=== PATIENT | female | born 1935 | race Caucasian/White ===

== ENCOUNTER 2017-10-11 12:39 | Inpatient (IN) | payer OTHER ==
[~2017-10-11] VITALS: Ht 165.1 cm; Wt 58.6 kg
[~2017-10-11 12:39] MED LIST: CEFUROXIME500 MG PO; CIPRO 500MG TA500 MG PO; CIPRO500 M1 PO; DOCUSATE SODIU100 M3 PO; ESCITALOPRAM OXA5 MG PO; FLUCONAZOLE100 MG PO; KEFLEX500 M1 PO; LEVEMIR 10100 UNITS/ SC; LEVEMIR100 UNIT/1 SC; MACRODANTIN 50M50 MG PO; MIRALAX119 GM PO; NITROFURANTOIN100 M6 PO; NOVOLOG MI100 UNIT/1 SC; NOVOLOG100 UNIT/2 SC; OXYBUTYNIN CHLO15 M1 PO; SENNA PLUS TAB1 EACH PO; TOUJEO SOL300 UNIT/1 SC; VANCOMYCIN1 GM/250 M IV; VESICARE5 M1 PO; VITAMIN D31000 UNI1 PO; VITAMIN D31000 UNI2 PO; ZOLPIDEM TARTRAT5 M1 PO
--- NOTE | 2017-10-11 13:07 | ED GENERAL ADULT ---
History of Present Illness General Chief Complaint: General Adult Stated Complaint: WEAKNESS Source: patient, family, old records Exam Limitations: no limitations Vital Signs & Intake/Output Vital Signs & Intake/Output Vital Signs Date Time Temp Pulse Resp B/P B/P Pulse O2 O2 Flow FiO2 Mean Ox Delivery Rate 10/11 1240 97.9 85 18 108/54 99 Room Air Allergies Coded Allergies: sulfamethoxazole (From Bactrim) (Mild, BACTRIM DS - FLUSHED FACE 08/26/15) trimethoprim (From Bactrim) (Mild, BACTRIM DS - FLUSHED FACE 08/26/15) Reconcile Medications Escitalopram Oxalate 5 MG TABLET 1 TAB PO DAILY DEPRESSION (Reported) Insulin Aspart (Novolog) 100 UNIT/ML VIAL 0 UNITS SC TIDAC/HS diabetes mellitus . Insulin Glargine,Hum.rec.anlog (Toujeo Solostar) 300 UNIT/ML (1.5 ML) INSULN.PEN 11 UNITS SC QPM DIABETES (Reported) Triage Note: PT BIBA FROM HOME C/O NV AND DIZZYNESS AND WEAKNESS. ONSET THIS AM.. PT STATES THAT SHE IS HUNGRY AND WANTS TO EAT.. PER FAMILY HX OD DYHYDRATION AND LOW POTASSIUM. P0ER EMS FS 318 Triage Nurses Notes Reviewed? yes HPI: Patient brought in by her family for evaluation for weakness and near syncopal episodes this morning after taking a shower. Patient states that she has been weak over the past few days. Patient has been anorexic. Patient had 2 episodes of vomiting and her live-in health provider has noticed that she has had loose stools over the past few days. There have been no fevers or chills. There is no coughing. She denies any abdominal pain. Past History Travel History Traveled to [place] past 21 day No Medical History Any Pertinent Medical History? see below for history Neurological: NONE EENT: NONE Cardiovascular: NONE Respiratory: NONE Gastrointestinal: CELIAC DISEASE Hepatic: NONE Renal: UTI'S Musculoskeletal: R HIP FX Psychiatric: NONE Endocrine: IDDM Blood Disorders: anemia Cancer(s): NONE GARMENT INSPECTOR/Reproductive: NONE History of MRSA: Yes History of VRE: No History of CDIFF: No Influenza Vaccine: 01/08/17 Surgical History Surgical History: hysterectomy, status post right hip ORIF 2 years prior to admission s/p right foot surgery Psychosocial History Who do you live with Patient/Self Services at Home Home Health Aide What is your primary language Colombian Tobacco Use: Quit >30 days ago ETOH Use: denies use Illicit Drug Use: denies illicit drug use Family History Family History, If Any: MOTHER (Diabetes). SISTER (diabetes). DAUGHTER (Diabetes). Hx Contributory? No Review of Systems Review of Systems Constitutional: Reports: see HPI, weakness. EENTM: Reports: no symptoms. Respiratory: Reports: no symptoms. Cardiovascular: Reports: no symptoms. GI: Reports: see HPI, abdominal pain, diarrhea, nausea, vomiting. Genitourinary: Reports: no symptoms. Musculoskeletal: Reports: no symptoms. Skin: Reports: no symptoms. Neurological/Psychological: Reports: see HPI. Hematologic/Endocrine: Reports: no symptoms. Immunologic/Allergic: Reports: no symptoms. All Other Systems: Reviewed and Negative Physical Exam Physical Exam General Appearance: well developed/nourished, alert, awake, mild distress Head: atraumatic, normal appearance Eyes: Bilateral: PERRL, EOMI. Ears, Nose, Throat: normal pharynx, normal ENT inspection, hearing grossly normal Neck: normal inspection, supple, full range of motion Respiratory: normal breath sounds, chest non-tender, no respiratory distress, lungs clear Cardiovascular: regular rate/rhythm, normal peripheral pulses Gastrointestinal: normal bowel sounds, soft, non-tender, no organomegaly Back: normal inspection, normal range of motion Extremities: normal inspection, normal capillary refill, normal range of motion, no edema Neurologic/Psych: no motor/sensory deficits, awake, alert, oriented x 3, normal mood/affect Skin: intact, normal color, warm/dry Lymphatic: no anterior cervical reji Core Measures ACS in differential dx? No CVA/TIA Diagnosis: No Sepsis Present: No Sepsis Focused Exam Completed? No Progress Differential Diagnoses I considered the following diagnoses in my evaluation of the patient: Plan of Care: Orders Procedure Date/time Status CBC WITHOUT DIFFERENTIAL 10/12 06 Active BASIC ELECTROLYTES PLUS BUN&CR 10/12 06 Active Consistent Carbohydrate 3 10/11 D Active Pathway - chart 10/11 1541 Active House Staff 10/11 1541 Active Patient Data 10/11 1541 Active Code Status 10/11 1541 Active Lab Add-on Test 10/11 1451 Active CULTURE,URINE 10/11 1450 Active BLOOD CULTURE 10/11 1450 Active URINALYSIS 10/11 1450 Active Patient Data 10/11 1434 Active ED Holding Orders 10/11 1426 Active Admit to inpatient 10/11 1426 Active Vital Signs 10/11 1426 Active Code Status 10/11 1426 Complete EKG 10/11 1425 Active LACTIC ACID 10/11 1318 Complete MIXED VENOUS BLOOD GAS (GEN) 10/11 1306 Active TROPONIN LEVEL 10/11 1306 Complete LIPASE 10/11 1306 Complete COMPREHENSIVE METABOLIC PANEL 10/11 1306 Complete CBC WITHOUT DIFFERENTIAL 10/11 1306 Complete AMYLASE 10/11 1306 Complete ACETONE 10/11 1306 Complete VTE Mechanical Prophylaxis 10/11 UNK Active Vital Signs 10/11 UNK Active MISTAKE 10/11 UNK Active Telemetry/Vp Cardiovascular 10/11 UNK Active Current Medications Sig/Tevin Start time Last Medication Dose Stop Time Status Admin Heparin Sodium 5,000 UNIT Q8 10/11 2200 AC (Porcine) Acetaminophen 650 MG Q6P PRN 10/11 1545 AC (Tylenol) Sodium Chloride 1,000 ML .[id number] 10/11 1545 AC (Normal Saline 0.9%) 10/12 0504 Laboratory Tests 10/11/17 1318: Lactic Acid 1.6 10/11/17 1318: Anion Gap 14, Estimated GFR 17 L, BUN/Creatinine Ratio 20.7, Glucose 362 H, Calcium 8.3 L, Total Bilirubin 0.3, AST 18, ALT 13, Alkaline Phosphatase 129 H , Troponin I < 0.01, Total Protein 6.2 L, Albumin 2.9 L, Globulin 3.3, Albumin /Globulin Ratio 0.9 L, Amylase 33, Lipase 18 L, CBC w Diff MAN DIFF ORDERED, RBC 3.48 L, MCV 80.2 L, MCH 25.3 L, MCHC 31.6 L, RDW 19.3 H, MPV 9.1, Gran % 94.8 H, Lymphocytes % 3.6 L, Monocytes % 1.6 L, Eosinophils % 0, Basophils % 0, Absolute Granulocytes 18.2 H, Segmented Neutrophils 75, Band Neutrophils 10 H, Absolute Lymphocytes 0.7 L, Lymphocytes 4 L, Monocytes 11 H, Absolute Monocytes 0.3, Absolute Eosinophils 0, Absolute Basophils 0, Platelet Estimate ADEQUATE, Hypochromic-Microcytic 2+, Anisocytosis 1+, Acetone Level NEGATIVE Microbiology 10/11 1450 URINE ROUT: Urine Culture - ORD 10/11 1450 BLOOD: Blood Culture - ORD 10/11 1450 BLOOD: Blood Culture - ORD Initial ED EKG: NSR, nonspecific ST T wave chg, PVC Rhythm Strip: normal sinus rhythm Departure Departure Disposition: STILL A PATIENT Condition: Guarded Clinical Impression Primary Impression: Acute renal failure Secondary Impressions: Hyperkalemia, Near syncope Referrals: Lisa Poe DO (PCP/Family) Departure Forms: Customer Survey General Discharge Information Admission Note Spoke With: Nehemiah Miller MD Documentation of Exam: Documentation of any treatments & extenuating circumstances including Concerns Regarding Discharge (functional status, medication knowledge or non-compliance, living conditions, etc.) that warrant an admission rather than observation: [IV fluids, telemetry monitoring, serial enzymes, no melena renal consultation, follow-up potassium levels after treatment] Critical Care Note Critical Care Note Critical Care Time: non-applicable
[2017-10-11 13:29] LABS: ABSOLUTE BASOPHIL COUNT 0 /CUMM (0.0-0.2); ABSOLUTE EOSINOPHIL COUNT 0 /CUMM (0.0-0.7); ABSOLUTE GRANULOCYTE CT 18.2 /CUMM (1.4-6.5); ABSOLUTE LYMPH COUNT 0.7 /CUMM (1.2-3.4); ABSOLUTE MONOCYTE COUNT 0.3 /CUMM (0.10-0.60); BASOPHIL % 0 % (0.0-2.0); EOSINOPHIL % 0 % (0-5); GRANULOCYTE % 94.8 % (42.2-75.2); HEMATOCRIT 27.9 % (37-47); MEAN CORPUSCULAR HGB 25.3 PG (27.0-31.0); MEAN CORPUSCULAR HGB CONC 31.6 G/DL (33.0-37.0); MEAN CORPUSCULAR VOLUME 80.2 FL (81.0-99.0); MEAN PLATELET VOLUME 9.1 FL (7.4-10.4); PLATELET COUNT 335 /CUMM (130-400); RBC DISTRIBUTION WIDTH 19.3 % (11.5-14.5); RED BLOOD CELL CT 3.48 /CUMM (4.20-5.40); WHITE BLOOD CELL COUNT 19.1 /CUMM (4.8-10.8)
--- NOTE | 2017-10-11 14:02 | RADIOLOGY REPORT ---
EXAMINATION: PORTABLE CHEST 1 VIEW CLINICAL INFORMATION: Weakness. COMPARISON: 03/29/2017. TECHNIQUE: Portable frontal view of the chest was obtained. FINDINGS: Patient is rotated slightly to the right. Lungs are well expanded. Chronic appearing reticular markings are again seen bilaterally. No superimposed focal infiltrate, effusion, edema, or pneumothorax. Cardiac mediastinal silhouettes within normal limits for size. Vascular calcification again seen in the aorta. Old healed left-sided rib fractures noted. Degenerative changes in the shoulders and spine. IMPRESSION: Mild chronic appearing changes but no evidence for acute disease.
--- NOTE | 2017-10-11 14:32 | History & Physical ---
Saulo KING,Josey 10/11/17 1432: General Information and HPI MD Statement: I have seen and personally examined ANEDRS SALAZAR and documented this H&P. The patient is a 82 year old F who presented with a patient stated chief complaint of [WEAKNESS]. Source of Information: patient, family, old records Exam Limitations: dementia History of Present Illness: 82 years old female with past medical history of celiac disease, diabetes, recurrent UTI, chronic anemia, reactive thrombocytopenia, overactive bladder, urine incontinence, depression presented to the ED complaining of weakness and dizziness for 3 days, it was associated with nausea, vomiting few times and loose stool. The patient also noticed that her blood pressure was running in the 929149 range for the past week. Patient also endorses increasing confusion. This morning the patient felt that she is about to pass out after taking a shower and felt very weak when she decided to come to the ED. At baseline the patient is incontinent and he denies any urinary symptoms. In addition she had poor oral intake for the past few days. She denies any recent travel or sick contacts. Allergies/Medications Allergies: Coded Allergies: sulfamethoxazole (From Bactrim) (Mild, BACTRIM DS - FLUSHED FACE 08/26/15) trimethoprim (From Bactrim) (Mild, BACTRIM DS - FLUSHED FACE 08/26/15) Home Med list Escitalopram Oxalate 5 MG TABLET 1 TAB PO DAILY DEPRESSION (Reported) Insulin Aspart (Novolog) 100 UNIT/ML VIAL 0 UNITS SC TIDAC/HS diabetes mellitus . 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 SISTER (diabetes). DAUGHTER (Diabetes). Psychosocial History Who Do You Live With? self Services at Home: Home Health Aide Primary Language: Grenadian ETOH Use: denies use Illicit Drug Use: denies illicit drug use Living Will? yes Power of Endoscopy Tech/HCP? yes Name of POA/HCP: Rolan Salazar Functional Ability ADLs Independent: dressing, bathing. Needs Assist: eating. Ambulation: walker IADLs Independent: finances, telephone. Needs Assist: shopping, housework, food prep, transportation, medication admin. Review of Systems Review of Systems Constitutional: Reports: malaise, weakness. Cardiovascular: Denies: chest pain, edema, orthopena, palpitations, peripheral edema. Respiratory: Denies: cough, hemoptysis, orthopnea, short of breath, sputum production. GI: Denies: no symptoms. Genitourinary: Reports: see HPI. Denies: no symptoms. Musculoskeletal: Denies: no symptoms. Skin: Denies: no symptoms. Neurological/Psychological: Denies: no symptoms. Exam & Diagnostic Data Last 24 Hrs of Vital Signs/I&O Vital Signs Date Time Temp Pulse Resp B/P B/P Pulse O2 O2 Flow FiO2 Mean Ox Delivery Rate 10/11 1240 97.9 85 18 108/54 99 Room Air Intake & Output 10/11 1600 10/11 0800 10/11 0000 Intake Total Output Total Balance Patient 110 lb Weight Weight Reported by Patient Measurement Method Physical Exam General Appearance Alert, Cooperative, No Acute Distress HEENT Atraumatic, PERRLA, EOMI, Mucous Membr. moist/pink Neck Supple, No thryomegaly Cardiovascular Normal S1, Normal S2, No Murmurs Lungs Clear to Auscultation Abdomen Normal Bowel Sounds, Soft, No Tenderness Extremities No Clubbing, No Cyanosis, No Edema Vascular Normal Pulses Last 24 Hrs of Labs/Emmanuel: Laboratory Tests 10/11/17 1653: Urinalysis LIGHT H, Urine Color YEL, Urine Clarity CLDY H, Urine pH 6.0, Ur Specific [place] 1.015, Urine Protein 30 H, Urine Ketones NEG, Urine Nitrite POS H, Urine Bilirubin NEG, Urine Urobilinogen 0.2, Ur Leukocyte Esterase LARGE H, Ur Microscopic SEDIMENT EXAMINED, Urine RBC 10-15 H, Urine WBC PACKD H, Ur Epithelial Cells FEW, Urine Bacteria PACKD H, Urine Mucus FEW, Urine Hemoglobin LARGE H, Urine Glucose 500 H 10/11/17 1318: Lactic Acid 1.6 10/11/17 1318: Anion Gap 14, Estimated GFR 17 L, BUN/Creatinine Ratio 20.7, Glucose 362 H, Calcium 8.3 L, Total Bilirubin 0.3, AST 18, ALT 13, Alkaline Phosphatase 129 H , Troponin I < 0.01, Total Protein 6.2 L, Albumin 2.9 L, Globulin 3.3, Albumin /Globulin Ratio 0.9 L, Amylase 33, Lipase 18 L, CBC w Diff MAN DIFF ORDERED, RBC 3.48 L, MCV 80.2 L, MCH 25.3 L, MCHC 31.6 L, RDW 19.3 H, MPV 9.1, Gran % 94.8 H, Lymphocytes % 3.6 L, Monocytes % 1.6 L, Eosinophils % 0, Basophils % 0, Absolute Granulocytes 18.2 H, Segmented Neutrophils 75, Band Neutrophils 10 H, Absolute Lymphocytes 0.7 L, Lymphocytes 4 L, Monocytes 11 H, Absolute Monocytes 0.3, Absolute Eosinophils 0, Absolute Basophils 0, Platelet Estimate ADEQUATE, Hypochromic-Microcytic 2+, Anisocytosis 1+, Acetone Level NEGATIVE Microbiology 10/11 170 BLOOD: Blood Culture - RECD 10/11 170 BLOOD: Blood Culture - RECD 10/11 1653 URINE ROUT: Urine Culture - RECD Assessment/Plan Assessment: 82 years old female with past medical history of celiac disease, diabetes, recurrent UTI, chronic anemia, reactive thrombocytopenia, overactive bladder, urine incontinence, depression presented to the ED complaining of weakness and dizziness for 3 days, it was associated with nausea, vomiting few times and loose stool. The patient has urine incontinence at baseline and that she is using diapers. She is denying any urinary symptoms currently however she had previous multiple admissions for UTI. She had blood sugar 362 which might be due to UTI, Vital signs on admission: Temperature 97.9, pulse 85, blood pressure 108/54, 99 on room air Labs on admission: WBC 19.1, hemoglobin 8.8, sodium 132, potassium 5.8, BUN 56, creatinine 2.7, glucose 362, calcium 8.3, chest x-ray mild chronic changes, urinalysis shows large leukocyte esterase Problem list: Weakness, dizziness and near syncope UTI with history of MRSA Hyponatremia Hyperkalemia Hypocalcemia Elevated alkaline phosphatase AK I on CKD (most likely due to dehydration secondary to vomiting and diarrhea) Chronic medical condition Plan: Admit to telemetry floor Continuous telemetry monitoring Start IV ceftriaxone 1 g daily Follow-up on blood culture Follow-up on urine culture Close monitoring of PEEP especially potassium Insulin sliding scale Accu-Chek Continue home dose of Levemir 11 units daily Patient continues to have diarrhea we will send for C. difficile Gentle rehydration with IV normal saline at 100 cc/h Continue home meds DVT prophylaxis with subcutaneous heparin Consistent carbohydrate diet Full code As Ranked By This Provider Problem List: 1. UTI (urinary tract infection) 2. Near syncope 3. Acute renal failure Core Measures/Misc (01/10) Acute Coronary Syndrome ACS Diagnosis: No Congestive Heart Failure Congestive Heart Failure Diagnosis No Cerebrovascular Accident CVA/TIA Diagnosis: No VTE (View Protocol) VTE Risk Factors Age>40 No Mechanical VTE Prophylaxis d/t N/A MechProphylax Ordered No VTE Pharm Prophylaxis d/t NA PharmProphylax ordered Sepsis (View protocol) Sepsis Present: No If YES complete Sepsis Event Note If YES complete Sepsis Event Note Shayy KING,[facility] 10/11/17 1541: Core Measures/Misc (01/10) Sepsis (View protocol) If YES complete Sepsis Event Note If YES complete Sepsis Event Note Resident Review Statement Resident Statement: examined this patient, discussed with photography intern, agreed with photography intern, discussed with family, discussed with nursing Other Findings: Ms. Salazar is 20 year old female with past medical history significant for celiac disease, diabetes, recurrent UTI, chronic anemia, reactive thrombocytopenia, over active bladder with urinary incontinence, depression who presented to ED with chief complaint of dizziness and weakness for 3 days. History was obtained from the patient, caregiver and the daughter. The caregiver patient has pain complaining of weakness and decreased oral intake for almost 3 days, this morning she woke VERY confused and weak, after shower she felt dizzy however no reports about an OCP. Patient had 2 episodes of vomiting yesterday and loose stool for couple of days associated with decreased oral intake. No history of sick contact. Problem list Dizziness and weakness that can be infection versus hyperglycemia versus arrhythmia Leukocytosis with left shift and bandemia Microcytic anemia Hyperglycemia with pseudohyponatremia corrected sodium 136 Diabetes mellitus on insulin Hyperkalemia 5.8 Acute kidney injury Hypocalcemia 8.3 Elevated alkaline phosphatase 129 History of MRSA Plan Admit to telemetry floor for 24 hour signs of arrhythmia giving history of dizziness and confusion Vitals every shift Ins and outs Urgently UA and urine culture since patient has multiple recurrent UTI and reported symptoms of UTI week ago however denied symptoms today--last urine culture positive for pansensitive Escherichia coli Blood culture 2 Repeat CBC and BMP in a.m. Normal saline running at 100 mL/h Repeat potassium after Kayexalate ACCU CHECK, NovoLog sliding scale Continue levemir 11 units daily DVT prophylaxis heparin subcutaneous DIET diabetic diet Code full son is the Norma Hu 10/11/17 1601: Core Measures/Misc (01/10) Sepsis (View protocol) If YES complete Sepsis Event Note If YES complete Sepsis Event Note Attending MD Review Statement Attending Statement Attending MD Statement: examined this patient, discuss w/resident/PA/WAREHOUSE SHIPPING SUPERVISOR, agreed w/resident/PA/WAREHOUSE SHIPPING SUPERVISOR, discussed with family, reviewed EMR data (avail), discussed with nursing, discussed with case mgmt, reviewed images, amended to note Attending Assessment/Plan: 82 o/f with pmh as above comes with poor appetite and diarrhea for few days. No fevers. Patient is found to have profound dehydration with acute kidney injury and hyperkalemia. Patient recieved fluids in ER. Patient admitted to telemetry for dizziness likley 2/2 Intravascular volume depletion. Hyponatremia 2/2 IVVD. Start gentle hydration, Monitor creatinine and wbc, repeat potassium. Stool studies. Monitor hemodynamics. Serial cardiac enzymes. gi/dvt prophylaxis full code.
[2017-10-11 18:27] VITALS: BP 92/50
[2017-10-11 22:34] VITALS: BP 86/54
[2017-10-12] VITALS (9 sets, daily range): BP systolic 62–96; BP diastolic 30–52
--- NOTE | 2017-10-12 07:18 | PN- Housestaff ---
Saulo KING,Josey 10/12/17 0717: Subjective Follow-up For: hypotension and hypoglycemia Weakness, dizziness and near syncope UTI with history of MRSA severe anemia Hyponatremia, hyperkalemia-improved Hypocalcemia Elevated alkaline phosphatase SHREE on CKD (most likely due to dehydration secondary to vomiting and diarrhea)- worsenig Chronic medical condition Tele-Events Since Last Visit: No overnight events, normal sinus rhythm, heart rate 79 Subjective: Patient was seen and examined, she was found to be hypotensive and hypoglycemic, denies any complaints, will be going for CT to rule out internal bleed, dropped her H&H, will receive 1 unit of PRBCs Review of Systems Constitutional: Reports: no symptoms. Objective Last 24 Hrs of Vital Signs/I&O Vital Signs Date Time Temp Pulse Resp B/P B/P Pulse O2 O2 Flow FiO2 Mean Ox Delivery Rate 10/13 1451 97.7 80 16 101/55 97 Room Air 10/13 1447 88/48 10/13 0947 80/40 10/13 0626 97.7 95 22 84/42 94 10/13 0428 97.7 95 22 84/42 94 10/12 2206 98.9 89 22 96/52 94 10/12 1525 98.3 86 19 84/48 94 Intake & Output 10/13 1600 10/13 0800 10/13 0000 Intake Total 650 Output Total Balance 650 Intake, IV 650 Patient 115 lb 131 lb Weight Physical Exam General Appearance: Alert, Cooperative, No Acute Distress Cardiovascular: Normal S1, Normal S2 Lungs: Clear to Auscultation Abdomen: Normal Bowel Sounds, Soft, No Tenderness Neurological: Normal Speech Extremities: No Clubbing, No Cyanosis, No Edema Assessment/Plan Assessment: 82 years old female with past medical history of celiac disease,type 1 diabetes, recurrent UTI, chronic anemia, reactive thrombocytopenia, overactive bladder, urine incontinence, depression presented to the ED complaining of weakness and dizziness for 3 days, it was associated with nausea, vomiting few times and loose stool. The patient has urine incontinence at baseline and that she is using diapers. She is denying any urinary symptoms currently however she had previous multiple admissions for UTI. She had blood sugar 362 which might be due to UTI, Vital signs on admission: Temperature 97.9, pulse 85, blood pressure 108/54, 99 on room air Labs on admission: WBC 19.1, hemoglobin 8.8, sodium 132, potassium 5.8, BUN 56, creatinine 2.7, glucose 362, calcium 8.3, chest x-ray mild chronic changes, urinalysis shows large leukocyte esterase Problem list: hypotension and hypoglycemia Weakness, dizziness and near syncope UTI with history of MRSA severe anemia Hyponatremia, hyperkalemia-improved Hypocalcemia Elevated alkaline phosphatase SHREE on CKD (most likely due to dehydration secondary to vomiting and diarrhea)- worsenig Chronic medical condition Plan: continue to monitpr on telemetry floor Continuous telemetry monitoring Continue IV ceftriaxone 1 g daily Follow-up on blood culture Follow-up on urine culture Follow-up on CT abdomen to rule out obstructive uropathy Patient was given multiple IV normal saline boluses Close monitoring of PEEP especially potassium Insulin sliding scale Decrease Levemir to 4 units twice daily daily Accu-Chek Pulmonology input appreciated if Patient continues to have diarrhea we will send for C. difficile Continue rehydration with IV normal saline at 150 cc/h Transfuse 1 unit of PRBCs Continue home meds DVT prophylaxis with subcutaneous heparin Consistent carbohydrate diet Full code For any questions or updates please call her son Rolan Rich cell: [phone] Problem List: 1. Diabetes mellitus 2. Near syncope 3. Acute renal failure 4. UTI (urinary tract infection) Pain Ratin Pain Location: n/a Pain Goal: Remain pain free Pain Plan: Pathway Tomorrow's Labs & Rationales: CBC BEP Norma Kitchen 10/12/17 1232: Attending MD Review Statement Attending Statement Attending MD Statement: examined this patient, discuss w/resident/PA/SPLIT LEATHER DEPARTMENT SUPERVISOR, agreed w/resident/PA/SPLIT LEATHER DEPARTMENT SUPERVISOR, discussed with family, reviewed EMR data (avail), discussed with nursing, discussed with case mgmt, reviewed images, amended to note Attending Assessment/Plan: Patient with hypotension and drop in hemoglobin this am likley acute blood loss anemia. Lactic acid on admisison normal. Would continue hydration and transfuse 1 unit of prbc. Obtain CT abd/pelvis, iv PPI, NPO and GI consult. Continue antibiotics and follow culture. Continue serial monitoring of cbc and creatinine.
[2017-10-12 07:52] LABS: ABSOLUTE BASOPHIL COUNT 0 /CUMM (0.0-0.2); ABSOLUTE EOSINOPHIL COUNT 0.1 /CUMM (0.0-0.7); BASOPHIL % 0 % (0.0-2.0); EOSINOPHIL % 0.8 % (0-5); RED BLOOD CELL CT 2.61 /CUMM (4.20-5.40)
[2017-10-12 08:25] LABS: ABSOLUTE GRANULOCYTE CT 9.2 /CUMM (1.4-6.5); ABSOLUTE LYMPH COUNT 0.4 /CUMM (1.2-3.4); ABSOLUTE MONOCYTE COUNT 0.8 /CUMM (0.10-0.60); MEAN CORPUSCULAR HGB 25.1 PG (27.0-31.0); MEAN CORPUSCULAR HGB CONC 31.5 G/DL (33.0-37.0); MEAN CORPUSCULAR VOLUME 79.7 FL (81.0-99.0); MEAN PLATELET VOLUME 9.5 FL (7.4-10.4); RBC DISTRIBUTION WIDTH 19.3 % (11.5-14.5); WHITE BLOOD CELL COUNT 10.5 /CUMM (4.8-10.8)
[2017-10-12 08:40] LABS: HEMATOCRIT 20.8 % (37-47)
[2017-10-12 09:30] LABS: PLATELET COUNT 277 /CUMM (130-400)
--- NOTE | 2017-10-12 09:50 | Cons- Endocrinology ---
General Information and HPI Consulting Request Date of Consult: 10/12/17 Requested By: medical team Reason for Consult: management of uncontrolled diabetes type 1. Source of Information: patient, family, old records Exam Limitations: no limitations History of Present Illness: 82 years old female with past medical history of celiac disease, diabetes type 1 , recurrent UTI, chronic anemia, overactive bladder, urine incontinence and depression, was admitted for UTI complicated with acute renal insufficiency. Her glucose level was in the 50s this morning. I was asked to see her for management of uncontrolled diabetes type 1. At home, she was on Toujeo 11 units daily and Novolog coverage before meals. In hospital, levemir was discontiued due to hypoglycemia. She is on Novolog coverage before meals. Her most recent FSG was 150. Allergies/Medications Allergies: Coded Allergies: sulfamethoxazole (From Bactrim) (Mild, BACTRIM DS - FLUSHED FACE 08/26/15) trimethoprim (From Bactrim) (Mild, BACTRIM DS - FLUSHED FACE 08/26/15) Home Med List: Escitalopram Oxalate 5 MG TABLET 1 TAB PO DAILY DEPRESSION (Reported) Insulin Aspart (Novolog) 100 UNIT/ML VIAL 0 UNITS SC TIDAC/HS diabetes mellitus . Insulin Glargine,Hum.rec.anlog (Toujeo Solostar) 300 UNIT/ML (1.5 ML) INSULN.PEN 11 UNITS SC QPM DIABETES (Reported) Review of Systems Review of Systems Constitutional: Reports: see HPI. Cardiovascular: Denies: chest pain. Respiratory: Denies: short of breath. GI: Denies: abdominal pain. Genitourinary: Reports: see HPI (incontinence). Hematologic/Endocrine: Denies: polyuria, polydipsia. 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 SISTER (diabetes). DAUGHTER (Diabetes). Psychosocial History Where Do You Live? Home Who Do You Live With? self Services at Home: Home Health Aide Primary Language: Nepali Smoking Status: Former Smoker ETOH Use: denies use Illicit Drug Use: denies illicit drug use Living Will? yes Power of Ehr Trainer/HCP? yes Name of POA/HCP: Rolan Layla Functional Ability ADLs Independent: dressing, bathing. Needs Assist: eating. Ambulation: walker IADLs Independent: finances, telephone. Needs Assist: shopping, housework, food prep, transportation, medication admin. Exam & Diagnostic Data Last 24 Hrs of Vital Signs/I&O Vital Signs Date Time Temp Pulse Resp B/P B/P Pulse O2 O2 Flow FiO2 Mean Ox Delivery Rate 10/12 0904 72/40 10/12 0620 108 78/36 10/12 0530 99.2 104 20 80/40 96 Room Air 10/11 2234 99.2 105 20 86/54 98 10/11 1827 98.2 84 18 92/50 94 10/11 1620 97.8 83 18 92/68 94 Room Air 10/11 1420 97 10/11 1240 97.9 85 18 108/54 99 Room Air Intake & Output 10/12 1600 10/12 0800 10/12 0000 Intake Total 1400 1000 Output Total Balance 1400 1000 Intake, IV 1400 1000 Patient 125 lb Weight Weight Bed scale Measurement Method Physical Exam General Appearance: no apparent distress Respiratory: lungs clear Cardiovascular: tachycardia Gastrointestinal: soft Extremities: no edema Labs/Emmanuel Results: Laboratory Tests 10/12 10/12 10/12 0637 0600 0545 Chemistry Sodium Cancelled Potassium Cancelled Chloride Cancelled Carbon Dioxide Cancelled Anion Gap Cancelled BUN Cancelled Creatinine Cancelled BUN/Creatinine Ratio Cancelled Glucose Cancelled Hex-R-Ktjzyzowyvr Pept Cancelled Hematology CBC w Diff NO MAN DIFF REQ WBC (4.8 - 10.8 /CUMM) 10.5 RBC (4.20 - 5.40 /CUMM) 2.61 L Hgb (12.0 - 16.0 G/DL) 6.6 *L Hct (37 - 47 %) 20.8 L MCV (81.0 - 99.0 FL) 79.7 L MCH (27.0 - 31.0 PG) 25.1 L MCHC (33.0 - 37.0 G/DL) 31.5 L RDW (11.5 - 14.5 %) 19.3 H Plt Count (130 - 400 /CUMM) 277 MPV (7.4 - 10.4 FL) 9.5 Gran % (42.2 - 75.2 %) 88.0 H Lymphocytes % (20.5 - 51.1 %) 3.8 L Monocytes % (1.7 - 9.3 %) 7.4 Eosinophils % (0 - 5 %) 0.8 Basophils % (0.0 - 2.0 %) 0 Absolute Granulocytes (1.4 - 6.5 /CUMM) 9.2 H Absolute Lymphocytes (1.2 - 3.4 /CUMM) 0.4 L Absolute Monocytes (0.10 - 0.60 /CUMM) 0.8 H Absolute Eosinophils (0.0 - 0.7 /CUMM) 0.1 Absolute Basophils (0.0 - 0.2 /CUMM) 0 10/12 1653 Chemistry Sodium (137 - 145 mmol/L) 141 Potassium (3.5 - 5.1 mmol/L) 3.9 4.4 Chloride (98 - 107 mmol/L) 110 H Carbon Dioxide (22 - 30 mmol/L) 17 L Anion Gap (5 - 16) 14 BUN (7 - 17 mg/dL) 46 H Creatinine (0.5 - 1.0 mg/dL) 2.5 H Estimated GFR (>60 ml/min) 19 L BUN/Creatinine Ratio (7 - 25 %) 18.4 Glucose (65 - 99 mg/dL) 34 *L Hoa-K-Fgbtovwseei Pept (<125 pg/mL) 02116 H Urines Urinalysis LIGHT H Urine Color (YEL,AMB,STR) YEL Urine Clarity (CLEAR) CLDY H Urine pH (5.0 - 8.0) 6.0 Ur Specific [place] (1.001 - 1.035) 1.015 Urine Protein (NEG,<30 MG/DL) 30 H Urine Ketones (NEG) NEG Urine Nitrite (NEG) POS H Urine Bilirubin (NEG) NEG Urine Urobilinogen (0.1 - 1.0 EU/dl) 0.2 Ur Leukocyte Esterase (NEG) LARGE H Ur Microscopic SEDIMENT EXAMINED Urine RBC (0 - 5 /HPF) 10-15 H Urine WBC (0 - 2 /HPF) PACKD H Ur Epithelial Cells (NONE,FEW) FEW Urine Bacteria (NEG/NONE) PACKD H Urine Mucus (FEW,NONE) FEW Urine Hemoglobin (NEG) LARGE H Urine Glucose (N MG/DL) 500 H 18 10/11 1318 1318 Chemistry Sodium (137 - 145 mmol/L) 132 L Potassium (3.5 - 5.1 mmol/L) 5.8 H Chloride (98 - 107 mmol/L) 99 Carbon Dioxide (22 - 30 mmol/L) 19 L Anion Gap (5 - 16) 14 BUN (7 - 17 mg/dL) 56 H Creatinine (0.5 - 1.0 mg/dL) 2.7 H Estimated GFR (>60 ml/min) 17 L BUN/Creatinine Ratio (7 - 25 %) 20.7 Glucose (65 - 99 mg/dL) 362 H Lactic Acid (0.7 - 2.1 mmol/L) 1.6 Calcium (8.4 - 10.2 mg/dL) 8.3 L Total Bilirubin (0.2 - 1.3 mg/dL) 0.3 AST (14 - 36 U/L) 18 ALT (9 - 52 U/L) 13 Alkaline Phosphatase (<127 U/L) 129 H Troponin I (< 0.11 ng/ml) < 0.01 Total Protein (6.3 - 8.2 g/dL) 6.2 L Albumin (3.5 - 5.0 g/dL) 2.9 L Globulin (1.9 - 4.2 gm/dL) 3.3 Albumin/Globulin Ratio (1.1 - 2.2 %) 0.9 L Amylase (30 - 110 U/L) 33 Lipase (23 - 300 U/L) 18 L Hematology CBC w Diff MAN DIFF ORDERED WBC (4.8 - 10.8 /CUMM) 19.1 H RBC (4.20 - 5.40 /CUMM) 3.48 L Hgb (12.0 - 16.0 G/DL) 8.8 L Hct (37 - 47 %) 27.9 L MCV (81.0 - 99.0 FL) 80.2 L MCH (27.0 - 31.0 PG) 25.3 L MCHC (33.0 - 37.0 G/DL) 31.6 L RDW (11.5 - 14.5 %) 19.3 H Plt Count (130 - 400 /CUMM) 335 MPV (7.4 - 10.4 FL) 9.1 Gran % (42.2 - 75.2 %) 94.8 H Lymphocytes % (20.5 - 51.1 %) 3.6 L Monocytes % (1.7 - 9.3 %) 1.6 L Eosinophils % (0 - 5 %) 0 Basophils % (0.0 - 2.0 %) 0 Absolute Granulocytes (1.4 - 6.5 /CUMM) 18.2 H Segmented Neutrophils (42.2 - 75.2 %) 75 Band Neutrophils (0.0 - 5.0 %) 10 H Absolute Lymphocytes (1.2 - 3.4 /CUMM) 0.7 L Lymphocytes (20.5 - 51.1 %) 4 L Monocytes (1.7 - 9.3 %) 11 H Absolute Monocytes (0.10 - 0.60 /CUMM) 0.3 Absolute Eosinophils (0.0 - 0.7 /CUMM) 0 Absolute Basophils (0.0 - 0.2 /CUMM) 0 Platelet Estimate (ADEQUATE) ADEQUATE Hypochromic-Microcytic 2+ Anisocytosis 1+ Toxicology Acetone Level (NEGATIVE) NEGATIVE Assessment/Plan Assessment/Plan 82 years old female with past medical history of celiac disease, diabetes type 1 , recurrent UTI, chronic anemia, overactive bladder, urine incontinence and depression, was admitted for UTI complicated with acute renal insufficiency and hypotension. Her glucose level was in the 50s this morning. I was asked to see her for management of uncontrolled diabetes type 1. At home, she was on Toujeo 11 units daily and Novolog coverage before meals. plan: 1. check am cortisol; 2. continue IVF of NS; 3. monitor electrolytes and renal function; 4. restart Levemir 4 units twice a day; 5. adjust Novolog coverage before meals and add another Novolog coverage at bedtime--detail see the inpatient DM orders; 6. monitor FSGs. will follow. Inpatient Diabetes Orders Before Each Meal: Bolus Insulin: Novolog < 80 mg/dl: no coverage 80-100 mg/dl: 2 units 101-120 mg/dl: 2 units 121-150 mg/dl: 2 units 151-200 mg/dl: 3 units 201-250 mg/dl: 4 units 251-300 mg/dl: 5 units 301-350 mg/dl: 7 units 351-400 mg/dl: 9 units > 400 mg/dl: 10 units Bedtime: Bolus Insulin: Novolog < 80 mg/dl: no coverage 80-100 mg/dl: no coverage 101-120 mg/dl: no coverage 121-150 mg/dl: no coverage 151-200 mg/dl: no coverage 201-250 mg/dl: no coverage 251-300 mg/dl: 2 units 301-350 mg/dl: 3 units 351-400 mg/dl: 4 units > 400 mg/dl: 5 units Consult Acknowledgment - Thank you for your consult request.
--- NOTE | 2017-10-12 12:48 | CT SCAN REPORT ---
CT ABDOMEN AND PELVIS WITHOUT CONTRAST CLINICAL INFORMATION: Drop in hemoglobin/hematocrit. Elevated creatinine. Drop in blood pressure. COMPARISON: Abdominal CT 03/31/2017. TECHNIQUE: Multidetector volumetric imaging was performed from the superior aspect of the liver through the pubic symphysis. Sagittal and coronal reformatted images were obtained on the technologist's workstation. FINDINGS: Small bilateral pleural effusions. Limited evaluation of the unenhanced liver, spleen, adrenal glands, gallbladder, and pancreas reveals no definite abnormality. Improved now mild right-sided hydronephrosis. No radiopaque calculi. There is moderate volume intracolonic stool. The large and small bowel are normal in caliber without evidence of mechanical obstruction. Similar haziness of the mesenteric fat limits assessment for any acute inflammatory processes of bowel. The appendix is normal. There is no free air and there is no intra-abdominal free fluid. No mesenteric or retroperitoneal adenopathy. Low-attenuation within the cardiac chambers and aorta in keeping with the clinical history of anemia. There is aortoiliac atherosclerotic calcification. The pelvic viscera are normal. No pelvic adenopathy. No free fluid within the pelvis. There are no acute osseous abnormalities. Stable appearing chronic compression fractures at the T12, L1, L2, and L3 levels. 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 No significant soft tissue abnormality. IMPRESSION: - Improved now mild right-sided hydronephrosis. No radiopaque calculi. - Small bilateral pleural effusions. - Low-attenuation within the cardiac chambers and aorta in keeping with the clinical history of anemia. - There is moderate volume intracolonic stool. No bowel obstruction. Similar haziness of the mesenteric fat limits assessment for any acute inflammatory processes of bowel. - Stable appearing chronic compression fractures at the T12, L1, L2, and L3 levels. 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
[2017-10-12 13:05] LABS: ABSOLUTE BASOPHIL COUNT 0 /CUMM (0.0-0.2); ABSOLUTE EOSINOPHIL COUNT 0 /CUMM (0.0-0.7); ABSOLUTE GRANULOCYTE CT 15.2 /CUMM (1.4-6.5); ABSOLUTE LYMPH COUNT 0.6 /CUMM (1.2-3.4); ABSOLUTE MONOCYTE COUNT 1.3 /CUMM (0.10-0.60); BASOPHIL % 0 % (0.0-2.0); EOSINOPHIL % 0.2 % (0-5); GRANULOCYTE % 88.5 % (42.2-75.2); HEMATOCRIT 20.6 % (37-47); MEAN CORPUSCULAR HGB 25.4 PG (27.0-31.0); MEAN CORPUSCULAR VOLUME 79.2 FL (81.0-99.0); MEAN PLATELET VOLUME 9.7 FL (7.4-10.4); PLATELET COUNT 279 /CUMM (130-400); RBC DISTRIBUTION WIDTH 18.9 % (11.5-14.5); RED BLOOD CELL CT 2.61 /CUMM (4.20-5.40)
[2017-10-12 13:21] LABS: WHITE BLOOD CELL COUNT 17.2 /CUMM (4.8-10.8)
[2017-10-12 18:41] LABS: ABSOLUTE BASOPHIL COUNT 0 /CUMM (0.0-0.2); ABSOLUTE EOSINOPHIL COUNT 0.1 /CUMM (0.0-0.7); ABSOLUTE GRANULOCYTE CT 12.3 /CUMM (1.4-6.5); ABSOLUTE LYMPH COUNT 0.8 /CUMM (1.2-3.4); ABSOLUTE MONOCYTE COUNT 0.9 /CUMM (0.10-0.60); BASOPHIL % 0.1 % (0.0-2.0); EOSINOPHIL % 0.5 % (0-5); GRANULOCYTE % 87.1 % (42.2-75.2); HEMATOCRIT 23.5 % (37-47); MEAN CORPUSCULAR HGB 26.2 PG (27.0-31.0); MEAN CORPUSCULAR HGB CONC 32.3 G/DL (33.0-37.0); MEAN CORPUSCULAR VOLUME 81.1 FL (81.0-99.0); MEAN PLATELET VOLUME 9.6 FL (7.4-10.4); PLATELET COUNT 265 /CUMM (130-400); RBC DISTRIBUTION WIDTH 18.5 % (11.5-14.5); WHITE BLOOD CELL COUNT 14.1 /CUMM (4.8-10.8)
--- NOTE | 2017-10-12 22:06 | Cons- Cardiology ---
General Information and HPI Consulting Request Date of Consult: 10/12/17 Requested By: Norma Kitchen MD History of Present Illness: This patient is an 82 year old female with history of diabetes and Celiac disease who presented to the ER for evaluation of weakness of dizziness that she had noted over the preceding three days. She also noted nausea and vomiting with loose stools. She otherwise denies chest pain, pressure, tightness or shortness of breath. She has noted lightheadedness and felt as though she was going to lose consciousness although this did not happen. This lightheadedness was worse after a shower. It was noted that this patient had a severely elevated blood pressure. Finally, this patient denies any dysuria. Labs upon admission showed purulent urine with increased creatinine consistent with acute renal insufficiency. She has hydronephrosis. She is also anemic with increased WBC count. Allergies/Medications Allergies: Coded Allergies: sulfamethoxazole (From Bactrim) (Mild, BACTRIM DS - FLUSHED FACE 08/26/15) trimethoprim (From Bactrim) (Mild, BACTRIM DS - FLUSHED FACE 08/26/15) Home Med List: Escitalopram Oxalate 5 MG TABLET 1 TAB PO DAILY DEPRESSION (Reported) Insulin Aspart (Novolog) 100 UNIT/ML VIAL 0 UNITS SC TIDAC/HS diabetes mellitus . Insulin Glargine,Hum.rec.anlog (Toujeo Solostar) 300 UNIT/ML (1.5 ML) INSULN.PEN 11 UNITS SC QPM DIABETES (Reported) Review of Systems Review of Systems: A review of systems is unremarkable. 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 SISTER (diabetes). DAUGHTER (Diabetes). Psychosocial History Where Do You Live? Home Who Do You Live With? self Services at Home: Home Health Aide Primary Language: Belizean Smoking Status: Former Smoker ETOH Use: denies use Illicit Drug Use: denies illicit drug use Living Will? yes Power of Booker/HCP? yes Name of POA/HCP: Rolan Rich Functional Ability ADLs Independent: dressing, bathing. Needs Assist: eating. Ambulation: walker IADLs Independent: finances, telephone. Needs Assist: shopping, housework, food prep, transportation, medication admin. Exam & Diagnostic Data Vital Signs and I&O Vital Signs Date Time Temp Pulse Resp B/P B/P Pulse O2 O2 Flow FiO2 Mean Ox Delivery Rate 10/12 1525 98.3 86 19 84/48 94 10/12 1426 98.4 97 18 80/38 95 Room Air 10/12 1113 70/40 10/12 1000 62/30 10/12 0904 72/40 10/12 0620 108 78/36 10/12 0530 99.2 104 20 80/40 96 Room Air 10/11 2234 99.2 105 20 86/54 98 Intake & Output 10/12 1600 10/12 0800 10/12 0000 10/11 1600 10/11 0800 10/11 0000 Intake Total 0 1400 1000 Output Total Balance 2049 1400 1000 Intake, Blood 350 Product Intake, IV 1300 1400 1000 Intake, Oral 400 Number 0 Bowel Movements Patient 125 lb 110 lb Weight Weight Bed scale Reported by Patient Measurement Method Physical Exam: General: WD/WN male in NAD; alert and oriented x 3 HEENT: NC/AT, PERRL, EOMI Neck: no JVD, no carotid bruit Heart: RRR w/o murmur Lungs: clear bilaterally Abdomen: soft, NT, +ve bowel sounds Exztremities: no edema Assessment/Plan Assessment/Plan * This patient likely has dizziness and fatigue due to her anemia. It is not clear if this is related to decreased production in the setting of her renal insufficiency or to bleeding but an anemia workup should be pursued. * This patient appears to have been dehydrated which may, in combination with severe anemia, caused her to be lightheaded and have renal insufficiency. An obstructive process needs to be excluded as a cause of her renal insufficiency however. If there is no obstruction then her dehydration may be due to the lethargy and inanition that is associated with a urinary tract infection. * Although hypertension has been reported, the patient is currently hypotensive. I would avoid any antihypertensive medications at this point in time and hydrate with normal saline. Observe for findings consistent with sepsis. * Obtain an echocardiogram. Consult Acknowledgment - Thank you for your consult request.
[2017-10-13 04:28] VITALS: BP 84/42
[2017-10-13 04:28] LABS: ABSOLUTE BASOPHIL COUNT 0.1 /CUMM (0.0-0.2); ABSOLUTE EOSINOPHIL COUNT 0.3 /CUMM (0.0-0.7); ABSOLUTE LYMPH COUNT 0.9 /CUMM (1.2-3.4); ABSOLUTE MONOCYTE COUNT 1.7 /CUMM (0.10-0.60); BASOPHIL % 0.4 % (0.0-2.0); EOSINOPHIL % 2.1 % (0-5); GRANULOCYTE % 77.4 % (42.2-75.2); HEMATOCRIT 23.7 % (37-47); MEAN CORPUSCULAR HGB CONC 32.5 G/DL (33.0-37.0); MEAN CORPUSCULAR VOLUME 80.1 FL (81.0-99.0); MEAN PLATELET VOLUME 9.4 FL (7.4-10.4); PLATELET COUNT 243 /CUMM (130-400); RBC DISTRIBUTION WIDTH 18.4 % (11.5-14.5); RED BLOOD CELL CT 2.95 /CUMM (4.20-5.40); WHITE BLOOD CELL COUNT 12.9 /CUMM (4.8-10.8)
[2017-10-13 06:26] VITALS: BP 84/42
--- NOTE | 2017-10-13 07:27 | PN- Housestaff ---
Saulo KING,Josey 10/13/17 0727: Subjective Follow-up For: hypotension and hypoglycemia Weakness, dizziness and near syncope UTI with history of MRSA severe anemia Hyponatremia, hyperkalemia-improved Hypocalcemia Elevated alkaline phosphatase SHREE on CKD (most likely due to dehydration secondary to vomiting and diarrhea)- worsenig Chronic medical condition Tele-Events Since Last Visit: Normal sinus rhythm, 9095, no overnight events Subjective: Patient was seen and examined, blood sugar was low overnight, had to be given dextrose 50%, blood pressure still running low on IV fluids, afebrile, antibiotic has been switched yesterday from ceftriaxone to ceftazidime, H&H is stable after 1 unit of PRBCs Review of Systems Constitutional: Reports: see HPI. Objective Last 24 Hrs of Vital Signs/I&O Vital Signs Date Time Temp Pulse Resp B/P B/P Pulse O2 O2 Flow FiO2 Mean Ox Delivery Rate 10/13 1451 97.7 80 16 101/55 97 Room Air 10/13 1447 88/48 10/13 0947 80/40 10/13 0626 97.7 95 22 84/42 94 10/13 0428 97.7 95 22 84/42 94 10/12 2206 98.9 89 22 96/52 94 10/12 1525 98.3 86 19 84/48 94 Intake & Output 10/13 1600 10/13 0800 10/13 0000 Intake Total 650 Output Total Balance 650 Intake, IV 650 Patient 115 lb 131 lb Weight Physical Exam General Appearance: Alert, Cooperative, No Acute Distress HEENT: Atraumatic, PERRLA, EOMI, Mucous Membr. moist/pink Cardiovascular: Normal S1, Normal S2 Lungs: Clear to Auscultation Abdomen: Normal Bowel Sounds, Soft, No Tenderness Neurological: Normal Speech Extremities: No Clubbing, No Cyanosis, No Edema Assessment/Plan Assessment: 82 years old female with past medical history of celiac disease,type 1 diabetes, recurrent UTI, chronic anemia, reactive thrombocytopenia, overactive bladder, urine incontinence, depression presented to the ED complaining of weakness and dizziness for 3 days, it was associated with nausea, vomiting few times and loose stool. The patient has urine incontinence at baseline and that she is using diapers. She is denying any urinary symptoms currently however she had previous multiple admissions for UTI, blood pressure was dropping, in addition to leukocytosis, was initially started on IV ceftriaxone however her WBC trended up. Ceftriaxone was discontinued and she was a started on ceftazidime yesterday. WBC are trending down today. On admission she had blood sugar 362 which might be due to UTI, however it was running low in the past 2 days, adjustment of her insulin was done multiple times by endocrinology, patient was also found to drop her H&H, CT ruled out internal bleeding, guaiac negative, currently her H&H is a stable after 1 unit of PRBCs. Problem list: hypotension and hypoglycemia Weakness, dizziness and near syncope Urosepsis, gram-negative bacteremia severe anemia S/P 1 unit PRBCs Hyponatremia, hyperkalemia-improved Hypocalcemia Elevated alkaline phosphatase SHREE on CKD (most likely due to dehydration secondary to vomiting and diarrhea)- slowly improving Chronic medical condition Plan: continue to monitor on telemetry floor Continuous telemetry monitoring DC ceftriaxone Continue ceftazidime 1 g every 24 (day 2) Follow-up on blood culture and urine culture sensitivity results CT abdomen showed improved mild right-sided hydronephrosis, small bilateral pleural effusion Close monitoring of BEP especially potassium Insulin sliding scale, with decreased this morning Decrease Levemir to 5 units daily Add a can of Glucerna and a cup of fruit to each meal Accu-Chek Continue rehydration with IV normal saline at 100 cc/h Unable to assess the output because the patient is incontinent and refuses Dove H&H stable after 1 unit of PRBCs, she is guaiac positive, will continue to follow CBCs Follow-up on iron studies Kidney function is slowly improving continue to follow BEP Replete potassium Continue home meds ID, urology, endocrinology recommendations appreciated DVT prophylaxis with subcutaneous heparin Consistent carbohydrate diet Full code For any questions or updates please call her son Rolan Rich cell: [phone] Problem List: 1. UTI (urinary tract infection) Pain Ratin Pain Location: N/A Pain Goal: Remain pain free Pain Plan: Pathway Tomorrow's Labs & Rationales: CBC BEP Norma Kitchen 10/13/17 1120: Attending MD Review Statement Attending Statement Attending MD Statement: examined this patient, discuss w/resident/PA/SUEDING MACHINE TENDER, agreed w/resident/PA/SUEDING MACHINE TENDER, discussed with family, reviewed EMR data (avail), discussed with nursing, discussed with case mgmt, reviewed images, amended to note Attending Assessment/Plan: Patient seen/examiend bedside. No new complaints. She says she runs low bp at home and PCP office visit. She is found to have hypotension. She is alert, awake. She has received geneorus fluids during the hospital stay. She is being treated as sepsis like presentation from UTI and hydronephosis with acute kidney injuery and hyperkalemia and hyponatremia on admission. Severe anemia multifactorial from kidney disease and other comorbid conditons. guaic negative. Received PRBC transfusion during the hospital stay without complications. Hypoglycemia second episode. Endocrinology consulted, decreased basal insulin dose. Cortisol acceptable. UTI with gram negative bacteremia: continue broad spectrum abx and follow culture. Lactic acid normal with out evidence of hypoperfusion now. Continue gentle hydration SHREE on CKD with improvement with fluids. Obtain Urology consult. gi/dvt prophylaxis
[2017-10-13 09:47] VITALS: BP 80/40
--- NOTE | 2017-10-13 10:50 | PN- Diabetes ---
Assessment/Plan Diabetes Assessment: 82 years old female with past medical history of celiac disease, diabetes type 1 , recurrent UTI, chronic anemia, overactive bladder, urine incontinence and depression, was admitted for UTI complicated with acute renal insufficiency and hypotension. Her glucose level was in the 50s this morning. I was asked to see her for management of uncontrolled diabetes type 1. At home, she was on Toujeo 11 units daily and Novolog coverage before meals. Am cortisol was 30.1. She was put on Levemir 4 units twice a day, Novolog coverage before meals and Novolog coverage at bedtime--detail see the inpatient DM orders; Inpatient Diabetes Orders Before Each Meal: Bolus Insulin: Novolog < 80 mg/dl: no coverage 80-100 mg/dl: 2 units 101-120 mg/dl: 2 units 121-150 mg/dl: 2 units 151-200 mg/dl: 3 units 201-250 mg/dl: 4 units 251-300 mg/dl: 5 units 301-350 mg/dl: 7 units 351-400 mg/dl: 9 units > 400 mg/dl: 10 units Bedtime: Bolus Insulin: Novolog < 80 mg/dl: no coverage 80-100 mg/dl: no coverage 101-120 mg/dl: no coverage 121-150 mg/dl: no coverage 151-200 mg/dl: no coverage 201-250 mg/dl: no coverage 251-300 mg/dl: 2 units 301-350 mg/dl: 3 units 351-400 mg/dl: 4 units > 400 mg/dl: 5 units Her meal intake has been poor. Her FSGs were 76, 69, 55, 256 and 278. Plan: 1. add one can of glucerna and a cup of fresh fruit to her meals; 2. decrease Levemir to 5 units daily; 3. adjust Novolog coverage before meals;detail see the inpatient DM order; 4. continue the current Novolog coverage at bedtime; 5. monitor FSGs. 6. replete K; monitor her renal function and electrolytes. will follow. Before Each Meal: Bolus Insulin: Novolog < 80 mg/dl: no coverage 80-99 mg/dl: no coverage 100-120 mg/dl: 2 units 121-150 mg/dl: 2 units 151-200 mg/dl: 3 units 201-250 mg/dl: 4 units 251-300 mg/dl: 5 units 301-350 mg/dl: 7 units 351-400 mg/dl: 9 units > 400 mg/dl: 10 units Bedtime: Subjective Subjective: Her po intake has been poor. Objective Last 24 Hrs of Vital Signs/I&O Vital Signs Date Time Temp Pulse Resp B/P B/P Pulse O2 O2 Flow FiO2 Mean Ox Delivery Rate 10/13 0947 80/40 10/13 0626 97.7 95 22 84/42 94 10/13 0428 97.7 95 22 84/42 94 10/12 2206 98.9 89 22 96/52 94 10/12 1525 98.3 86 19 84/48 94 10/12 1426 98.4 97 18 80/38 95 Room Air 10/12 1113 70/40 Intake & Output 10/13 1600 10/13 0800 10/13 0000 Intake Total 650 Output Total Balance 650 Intake, IV 650 Patient 131 lb Weight Findings Pertinent Lab/Emmanuel Results: Laboratory Tests 10/13 10/13 0400 0400 Chemistry Sodium (137 - 145 mmol/L) 142 Potassium (3.5 - 5.1 mmol/L) 3.0 L Chloride (98 - 107 mmol/L) 120 H Carbon Dioxide (22 - 30 mmol/L) 15 L Anion Gap (5 - 16) 8 BUN (7 - 17 mg/dL) 33 H Creatinine (0.5 - 1.0 mg/dL) 1.8 H Estimated GFR (>60 ml/min) 27 L BUN/Creatinine Ratio (7 - 25 %) 18.3 Glucose (65 - 99 mg/dL) Cancelled 39 *L Magnesium (1.6 - 2.3 mg/dL) 1.8 TSH (0.270 - 4.200 uIU/mL) 2.070 Hematology CBC w Diff MAN DIFF ORDERED WBC (4.8 - 10.8 /CUMM) 12.9 H RBC (4.20 - 5.40 /CUMM) 2.95 L Hgb (12.0 - 16.0 G/DL) 7.7 L Hct (37 - 47 %) 23.7 L MCV (81.0 - 99.0 FL) 80.1 L MCH (27.0 - 31.0 PG) 26.0 L MCHC (33.0 - 37.0 G/DL) 32.5 L RDW (11.5 - 14.5 %) 18.4 H Plt Count (130 - 400 /CUMM) 243 MPV (7.4 - 10.4 FL) 9.4 Gran % (42.2 - 75.2 %) 77.4 H Lymphocytes % (20.5 - 51.1 %) 7.1 L Monocytes % (1.7 - 9.3 %) 13.0 H Eosinophils % (0 - 5 %) 2.1 Basophils % (0.0 - 2.0 %) 0.4 Absolute Granulocytes (1.4 - 6.5 /CUMM) 10.0 H Segmented Neutrophils (42.2 - 75.2 %) 76 H Band Neutrophils (0.0 - 5.0 %) 4 Absolute Lymphocytes (1.2 - 3.4 /CUMM) 0.9 L Lymphocytes (20.5 - 51.1 %) 11 L Monocytes (1.7 - 9.3 %) 9 Absolute Monocytes (0.10 - 0.60 /CUMM) 1.7 H Absolute Eosinophils (0.0 - 0.7 /CUMM) 0.3 Absolute Basophils (0.0 - 0.2 /CUMM) 0.1 Platelet Estimate (ADEQUATE) ADEQUATE Hypochromic-Microcytic 1+ Poikilocytosis 2+ Anisocytosis 1+ Microcytic Cells 1+ Target Cells FEW Ovalocytes 1+ Jean Cells 1+ Elliptocytes FEW Other Body Source Fld Total RBCs Counted (%) 100 10/12 10/12 10/12 1740 1701 1430 Chemistry Lactic Acid Cancelled Troponin I (< 0.11 ng/ml) < 0.01 Hematology CBC w Diff MAN DIFF ORDERED WBC (4.8 - 10.8 /CUMM) 14.1 H RBC (4.20 - 5.40 /CUMM) 2.90 L Hgb (12.0 - 16.0 G/DL) 7.6 L Hct (37 - 47 %) 23.5 L MCV (81.0 - 99.0 FL) 81.1 MCH (27.0 - 31.0 PG) 26.2 L MCHC (33.0 - 37.0 G/DL) 32.3 L RDW (11.5 - 14.5 %) 18.5 H Plt Count (130 - 400 /CUMM) 265 MPV (7.4 - 10.4 FL) 9.6 Gran % (42.2 - 75.2 %) 87.1 H Lymphocytes % (20.5 - 51.1 %) 5.7 L Monocytes % (1.7 - 9.3 %) 6.6 Eosinophils % (0 - 5 %) 0.5 Basophils % (0.0 - 2.0 %) 0.1 Absolute Granulocytes (1.4 - 6.5 /CUMM) 12.3 H Segmented Neutrophils (42.2 - 75.2 %) 69 Band Neutrophils (0.0 - 5.0 %) 20 H Absolute Lymphocytes (1.2 - 3.4 /CUMM) 0.8 L Lymphocytes (20.5 - 51.1 %) 2 L Monocytes (1.7 - 9.3 %) 8 Absolute Monocytes (0.10 - 0.60 /CUMM) 0.9 H Eosinophils (0 - 5.0 %) 1 Absolute Eosinophils (0.0 - 0.7 /CUMM) 0.1 Absolute Basophils (0.0 - 0.2 /CUMM) 0 Platelet Estimate (ADEQUATE) ADEQUATE Hypochromic-Microcytic 2+ Anisocytosis 1+ Microcytic Cells 1+ 10/12 10/12 1430 1200 Chemistry Lactic Acid (0.7 - 2.1 mmol/L) 0.9 Hematology CBC w Diff MAN DIFF ORDERED WBC (4.8 - 10.8 /CUMM) 17.2 H RBC (4.20 - 5.40 /CUMM) 2.61 L Hgb (12.0 - 16.0 G/DL) 6.6 *L Hct (37 - 47 %) 20.6 L MCV (81.0 - 99.0 FL) 79.2 L MCH (27.0 - 31.0 PG) 25.4 L MCHC (33.0 - 37.0 G/DL) 32.0 L RDW (11.5 - 14.5 %) 18.9 H Plt Count (130 - 400 /CUMM) 279 MPV (7.4 - 10.4 FL) 9.7 Gran % (42.2 - 75.2 %) 88.5 H Lymphocytes % (20.5 - 51.1 %) 3.6 L Monocytes % (1.7 - 9.3 %) 7.7 Eosinophils % (0 - 5 %) 0.2 Basophils % (0.0 - 2.0 %) 0 Absolute Granulocytes (1.4 - 6.5 /CUMM) 15.2 H Segmented Neutrophils (42.2 - 75.2 %) 63 Band Neutrophils (0.0 - 5.0 %) 20 H Absolute Lymphocytes (1.2 - 3.4 /CUMM) 0.6 L Lymphocytes (20.5 - 51.1 %) 8 L Monocytes (1.7 - 9.3 %) 9 Absolute Monocytes (0.10 - 0.60 /CUMM) 1.3 H Absolute Eosinophils (0.0 - 0.7 /CUMM) 0 Absolute Basophils (0.0 - 0.2 /CUMM) 0 Platelet Estimate (ADEQUATE) VERIFIED BY SMEAR Polychromasia 1+ Hypochromic-Microcytic 1+ Anisocytosis 1+ Microcytic Cells 1+ Target Cells
--- NOTE | 2017-10-13 13:24 | PN- Student ---
Subjective Subjective: The patient is an 82 year old female with a PMHx of T1DM on insulin, recurrent UTIs, urinary incontinence at baseline who presented with several days of weakness and one near syncopal episode the morning she was admitted following multiple bouts of vomiting and diarrhea. She is being seen for f/u of a UTI growing gram negative rods. She was switched from 1000mg ceftriaxone to ceftazidine. She is being monitored for two episodes of morning hypoglycemia, persistent hypotension despite fluid resuscitation, anemia, and for poor kidney function. This morning the patient said she still felt tired and weak, but denied any pain, urinary symptoms, palpitations, SOB, n/v/d. According to her PCP, her most recent blood pressure readings between Mar and May were 120/80, 84/58, and 103/57. Objective Objective: Vital Signs Date Time Temp Pulse Resp B/P B/P Pulse O2 O2 Flow FiO2 Mean Ox Delivery Rate 10/13 1451 97.7 80 16 101/55 97 Room Air 10/13 1447 88/48 10/13 0947 80/40 10/13 0626 97.7 95 22 84/42 94 10/13 0428 97.7 95 22 84/42 94 10/12 2206 98.9 89 22 96/52 94 Physical Exam General: AOx3, in no apparent distress, conversation appropriate Skin: pink, no central or peripheral cyanosis, no rashes or ulcers noted HEENT: normocephalic, atraumatic, gross hearing intact Heart: soft s1 and s2, no MRG appreciated Lungs: no use of accessory msucles, lungs clear to auscultation bilaterally Abdomen: normoactive bowel sounsd, soft, non-tender MSK: no lower extremity edema Current Medications Sig/Tevin Start time Last Medication Dose Route Stop Time Status Admin Acetaminophen 650 MG .STK-MED ONE 10/13 0403 DC PO 10/13 0404 Acetaminophen 650 MG Q6P PRN 10/11 1545 AC 10/13 PO 0404 Bisacodyl 5 MG DAILY PRN 10/13 1045 AC 10/13 PO 1204 Ceftazidime 1,000 MG Q24H 10/12 1645 AC 10/12 IV 1833 Ceftriaxone Sodium 1,000 MG Q24H 10/11 1900 DC 10/11 IV 2123 Dextrose 25 GM ONCE ONE 10/13 0345 DC 10/13 IV 10/13 0346 0412 Escitalopram Oxalate 5 MG DAILY 10/12 0900 AC 10/13 PO 1038 Insulin Aspart 0 TIDAC/HS 10/12 1200 AC 10/13 SC 1203 Insulin Detemir 5 UNITS DAILY 10/13 0900 AC 10/13 SC 1033 Insulin Detemir 4 UNITS BID 10/12 0900 DC 10/12 SC 0908 Magnesium Oxide 400 MG ONE ONE 10/13 0845 DC 10/13 PO 10/13 0846 1037 Melatonin 5 MG ONCE ONE 10/13 0015 DC 10/13 PO 10/13 0016 0007 Melatonin 5 MG AT BEDTIME 10/12 2100 DC 10/11 PO 2125 Nystatin 1 MARLYS BID 10/13 0900 AC 10/13 TOP 1429 Omeprazole 40 MG DAILY AC 10/12 1644 AC 10/12 PO 1833 Potassium Chloride 40 MEQ ONCE ONE 10/13 0900 DC 10/13 PO 10/13 0901 1036 Potassium Chloride 40 MEQ TID 10/13 0730 DC PO 10/13 1401 Sodium Chloride 1,000 ML Q10H 10/13 1315 AC 10/13 IV 10/13 2314 0830 Sodium Chloride 1,000 ML Q13H 10/12 2230 DC 10/12 IV 10/13 0829 2257 Laboratory Tests 10/13 10/13 0400 0400 Chemistry Sodium (137 - 145 mmol/L) 142 Potassium (3.5 - 5.1 mmol/L) 3.0 L Chloride (98 - 107 mmol/L) 120 H Carbon Dioxide (22 - 30 mmol/L) 15 L Anion Gap (5 - 16) 8 BUN (7 - 17 mg/dL) 33 H Creatinine (0.5 - 1.0 mg/dL) 1.8 H Estimated GFR (>60 ml/min) 27 L BUN/Creatinine Ratio (7 - 25 %) 18.3 Glucose (65 - 99 mg/dL) Cancelled 39 *L Magnesium (1.6 - 2.3 mg/dL) 1.8 Iron (37 - 170 ug/dL) 11 L TIBC (265 - 497 ug/dL) 183 L Ferritin (11.1 - 264 ng/mL) 42.3 TSH (0.270 - 4.200 uIU/mL) 2.070 Hematology CBC w Diff MAN DIFF ORDERED WBC (4.8 - 10.8 /CUMM) 12.9 H RBC (4.20 - 5.40 /CUMM) 2.95 L Hgb (12.0 - 16.0 G/DL) 7.7 L Hct (37 - 47 %) 23.7 L MCV (81.0 - 99.0 FL) 80.1 L MCH (27.0 - 31.0 PG) 26.0 L MCHC (33.0 - 37.0 G/DL) 32.5 L RDW (11.5 - 14.5 %) 18.4 H Plt Count (130 - 400 /CUMM) 243 MPV (7.4 - 10.4 FL) 9.4 Gran % (42.2 - 75.2 %) 77.4 H Lymphocytes % (20.5 - 51.1 %) 7.1 L Monocytes % (1.7 - 9.3 %) 13.0 H Eosinophils % (0 - 5 %) 2.1 Basophils % (0.0 - 2.0 %) 0.4 Absolute Granulocytes (1.4 - 6.5 /CUMM) 10.0 H Segmented Neutrophils (42.2 - 75.2 %) 76 H Band Neutrophils (0.0 - 5.0 %) 4 Absolute Lymphocytes (1.2 - 3.4 /CUMM) 0.9 L Lymphocytes (20.5 - 51.1 %) 11 L Monocytes (1.7 - 9.3 %) 9 Absolute Monocytes (0.10 - 0.60 /CUMM) 1.7 H Absolute Eosinophils (0.0 - 0.7 /CUMM) 0.3 Absolute Basophils (0.0 - 0.2 /CUMM) 0.1 Platelet Estimate (ADEQUATE) ADEQUATE Hypochromic-Microcytic 1+ Poikilocytosis 2+ Anisocytosis 1+ Microcytic Cells 1+ Target Cells FEW Ovalocytes 1+ Jean Cells 1+ Elliptocytes FEW Other Body Source Fld Total RBCs Counted (%) 100 10/12 10/12 1740 1701 Chemistry Lactic Acid Cancelled Hematology CBC w Diff MAN DIFF ORDERED WBC (4.8 - 10.8 /CUMM) 14.1 H RBC (4.20 - 5.40 /CUMM) 2.90 L Hgb (12.0 - 16.0 G/DL) 7.6 L Hct (37 - 47 %) 23.5 L MCV (81.0 - 99.0 FL) 81.1 MCH (27.0 - 31.0 PG) 26.2 L MCHC (33.0 - 37.0 G/DL) 32.3 L RDW (11.5 - 14.5 %) 18.5 H Plt Count (130 - 400 /CUMM) 265 MPV (7.4 - 10.4 FL) 9.6 Gran % (42.2 - 75.2 %) 87.1 H Lymphocytes % (20.5 - 51.1 %) 5.7 L Monocytes % (1.7 - 9.3 %) 6.6 Eosinophils % (0 - 5 %) 0.5 Basophils % (0.0 - 2.0 %) 0.1 Absolute Granulocytes (1.4 - 6.5 /CUMM) 12.3 H Segmented Neutrophils (42.2 - 75.2 %) 69 Band Neutrophils (0.0 - 5.0 %) 20 H Absolute Lymphocytes (1.2 - 3.4 /CUMM) 0.8 L Lymphocytes (20.5 - 51.1 %) 2 L Monocytes (1.7 - 9.3 %) 8 Absolute Monocytes (0.10 - 0.60 /CUMM) 0.9 H Eosinophils (0 - 5.0 %) 1 Absolute Eosinophils (0.0 - 0.7 /CUMM) 0.1 Absolute Basophils (0.0 - 0.2 /CUMM) 0 Platelet Estimate (ADEQUATE) ADEQUATE Hypochromic-Microcytic 2+ Anisocytosis 1+ Microcytic Cells 1+ Results Results: Laboratory Tests 10/13/17399: Glucose Cancelled 10/13/17 0400: Anion Gap 8, Estimated GFR 27 L, BUN/Creatinine Ratio 18.3, Glucose 39 *L, Magnesium 1.8, Iron 11 L, TIBC 183 L, Ferritin 42.3, TSH 2.070, CBC w Diff MAN DIFF ORDERED, RBC 2.95 L, MCV 80.1 L, MCH 26.0 L, MCHC 32.5 L, RDW 18.4 H, MPV 9.4, Gran % 77.4 H, Lymphocytes % 7.1 L, Monocytes % 13.0 H, Eosinophils % 2.1, Basophils % 0.4, Absolute Granulocytes 10.0 H, Segmented Neutrophils 76 H, Band Neutrophils 4, Absolute Lymphocytes 0.9 L, Lymphocytes 11 L, Monocytes 9, Absolute Monocytes 1.7 H, Absolute Eosinophils 0.3, Absolute Basophils 0.1, Platelet Estimate ADEQUATE, Hypochromic-Microcytic 1+, Poikilocytosis 2+, Anisocytosis 1+, Microcytic Cells 1+, Target Cells FEW, Ovalocytes 1+, Jean Cells 1+, Elliptocytes FEW, Fld Total RBCs Counted 100 10/12/17 1740: CBC w Diff MAN DIFF ORDERED, RBC 2.90 L, MCV 81.1, MCH 26.2 L, MCHC 32.3 L, RDW 18.5 H, MPV 9.6, Gran % 87.1 H, Lymphocytes % 5.7 L, Monocytes % 6.6, Eosinophils % 0.5, Basophils % 0.1, Absolute Granulocytes 12.3 H, Segmented Neutrophils 69, Band Neutrophils 20 H, Absolute Lymphocytes 0.8 L, Lymphocytes 2 L, Monocytes 8, Absolute Monocytes 0.9 H, Eosinophils 1, Absolute Eosinophils 0.1, Absolute Basophils 0, Platelet Estimate ADEQUATE, Hypochromic- Microcytic 2+, Anisocytosis 1+, Microcytic Cells 1+ 10/12/17 1701: Lactic Acid Cancelled 10/12/17 1430: Troponin I < 0.01 10/12/17 1430: Lactic Acid 0.9 10/12/17 1200: CBC w Diff MAN DIFF ORDERED, RBC 2.61 L, MCV 79.2 L, MCH 25.4 L, MCHC 32.0 L , RDW 18.9 H, MPV 9.7, Gran % 88.5 H, Lymphocytes % 3.6 L, Monocytes % 7.7, Eosinophils % 0.2, Basophils % 0, Absolute Granulocytes 15.2 H, Segmented Neutrophils 63, Band Neutrophils 20 H, Absolute Lymphocytes 0.6 L, Lymphocytes 8 L, Monocytes 9, Absolute Monocytes 1.3 H, Absolute Eosinophils 0, Absolute Basophils 0, Platelet Estimate VERIFIED BY SMEAR, Polychromasia 1+, Hypochromic- Microcytic 1+, Anisocytosis 1+, Microcytic Cells 1+, Target Cells 10/12/17 0637: CBC w Diff NO MAN DIFF REQ, RBC 2.61 L, MCV 79.7 L, MCH 25.1 L, MCHC 31.5 L, RDW 19.3 H, MPV 9.5, Gran % 88.0 H, Lymphocytes % 3.8 L, Monocytes % 7.4, Eosinophils % 0.8, Basophils % 0, Absolute Granulocytes 9.2 H, Absolute Lymphocytes 0.4 L, Absolute Monocytes 0.8 H, Absolute Eosinophils 0.1, Absolute Basophils 0 10/12/17 0600: Sodium Cancelled, Potassium Cancelled, Chloride Cancelled, Carbon Dioxide Cancelled, Anion Gap Cancelled, BUN Cancelled, Creatinine Cancelled, BUN/ Creatinine Ratio Cancelled 10/12/17 0545: Glucose Cancelled, [id number] Pept Cancelled 10/12/17 0545: Anion Gap 14, Estimated GFR 19 L, BUN/Creatinine Ratio 18.4, Glucose 34 *L, Pro -B-Natriuretic Pept 39416 H, Cortisol AM Sample 30.1 H 10/11/17 2003: 10/11/17 1653: Urinalysis LIGHT H, Urine Color YEL, Urine Clarity CLDY H, Urine pH 6.0, Ur Specific [place] 1.015, Urine Protein 30 H, Urine Ketones NEG, Urine Nitrite POS H, Urine Bilirubin NEG, Urine Urobilinogen 0.2, Ur Leukocyte Esterase LARGE H, Ur Microscopic SEDIMENT EXAMINED, Urine RBC 10-15 H, Urine WBC PACKD H, Ur Epithelial Cells FEW, Urine Bacteria PACKD H, Urine Mucus FEW, Urine Hemoglobin LARGE H, Urine Glucose 500 H 10/11/17 1318: Lactic Acid 1.6 10/11/17 1318: Anion Gap 14, Estimated GFR 17 L, BUN/Creatinine Ratio 20.7, Glucose 362 H, Calcium 8.3 L, Total Bilirubin 0.3, AST 18, ALT 13, Alkaline Phosphatase 129 H , Troponin I < 0.01, Total Protein 6.2 L, Albumin 2.9 L, Globulin 3.3, Albumin /Globulin Ratio 0.9 L, Amylase 33, Lipase 18 L, CBC w Diff MAN DIFF ORDERED, RBC 3.48 L, MCV 80.2 L, MCH 25.3 L, MCHC 31.6 L, RDW 19.3 H, MPV 9.1, Gran % 94.8 H, Lymphocytes % 3.6 L, Monocytes % 1.6 L, Eosinophils % 0, Basophils % 0, Absolute Granulocytes 18.2 H, Segmented Neutrophils 75, Band Neutrophils 10 H, Absolute Lymphocytes 0.7 L, Lymphocytes 4 L, Monocytes 11 H, Absolute Monocytes 0.3, Absolute Eosinophils 0, Absolute Basophils 0, Platelet Estimate ADEQUATE, Hypochromic-Microcytic 2+, Anisocytosis 1+, Acetone Level NEGATIVE Microbiology 10/11 1708 BLOOD: Blood Culture - RES GRAM NEGATIVE RODS 10/12 1703 BLOOD: Blood Culture - RES 10/11 165 URINE ROUT: Urine Culture - RES GRAM NEGATIVE RODS Assessment/Plan Assessment: The patient is an 82 year old female with a PMHx of T1DM on insulin, recurrent UTIs, urinary incontinence at baseline, chronic microcytic anemia, and h/o ORIF 2 yrs ago who presented with several days of weakness and one near syncopal episode the morning she was admitted following multiple bouts of vomiting and diarrhea. She presented with a BG of 362, Na+ 132, and K+ 5.8. Urine cultures grew gram negative rods and she was switched from 1000mg ceftriaxone to 1,000mg ceftazidine. She has had two bouts of morning hypoglycemia, this morning with a BG of 39. She was given a 25gm bolus of dextrose 50% which brought her BG to 256. She has had poor oral intake. She has remained hypotensive during her stay, with a bp of 84/42 this morning. She has septic-like signs, with a HR>90, RR>20, WBC>12 and positive for infection, but has remained afebrile, her WBCs are trending downward and her lactic acid is normal. Plan: UTI: Ceftazidine 1000mg Normal saline Urology consult Diabetes: Endocrinology consult 1. add one can of glucerna and a cup of fresh fruit to her meals; 2. decrease Levemir to 5 units daily; 3. adjust Novolog coverage before meals;detail see the inpatient DM order; 4. continue the current Novolog coverage at bedtime; 5. monitor FSGs. 6. replete K; monitor her renal function and electrolytes. SHREE: Monitor BUN and Cr Monitor serum electrolytes Urine electrolytes Acidosis - order ABG to assess for RTA Hypotension/anemia: Given 1 unit of blood Cardiology consult -pursue anemia workup -avoid hypertensive medications -obtain echo -monitor for sepsis Iron studies Check orthostatics
[2017-10-13 14:47] VITALS: BP 88/48
[2017-10-13 14:51] VITALS: BP 101/55
--- NOTE | 2017-10-13 15:38 | Cons- Infect Disease ---
General Information and HPI Consulting Request Date of Consult: 10/13/17 Requested By: Imtiaz KING,Norma Reason for Consult: Positive urine and blood cultures Source of Information: patient, old records History of Present Illness: This is an 82-year-old woman with a history of diabetes, celiac disease, iron deficiency anemia and recurrent urinary tract infections, last hospitalized 6 months prior to admission with sepsis of urologic origin secondary to E. coli, with a CT of the abdomen and pelvis revealing a right sided Grade 3 hydroureteronephrosis, with no intervention recommended by Urology, admitted on October 11 after presenting to the emergency room with nausea, lightheadedness and weakness with no dysuria, flank pain, fevers or chills. On admission she was afebrile, with a blood pressure of 108/54. Laboratory data revealed a white blood cell of 19,000, with 75 segs and 10 bands, glucose 362, BUN/creatinine 56 and 2.7, sodium 132, potassium 5.8, alkaline phosphatase 129. Urinalysis 10-15 RBC/packed WBCs. Chest x-ray was negative for any acute process. CT of the abdomen and pelvis revealed improved right hydronephrosis, with no radiopaque calculi. She was begun on Ceftriaxone. She became hypotensive soon after admission and has remained mildly hypotensive. On October 12 blood and urine cultures were reported positive for gram negative rods and, because of persistent hypotension, she was changed to Ceftazidime. She has remained afebrile since admission. Her white blood cell count has been fluctuating but is overall decreased. She feels improved since admission and offers no complaints at this time. Allergies/Medications Allergies: Coded Allergies: sulfamethoxazole (From Bactrim) (Mild, BACTRIM DS - FLUSHED FACE 08/26/15) trimethoprim (From Bactrim) (Mild, BACTRIM DS - FLUSHED FACE 08/26/15) Home Med List: Escitalopram Oxalate 5 MG TABLET 1 TAB PO DAILY DEPRESSION (Reported) Insulin Aspart (Novolog) 100 UNIT/ML VIAL 0 UNITS SC TIDAC/HS diabetes mellitus . 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 SISTER (diabetes). DAUGHTER (Diabetes). Psychosocial History Where Do You Live? Home Who Do You Live With? self Services at Home: Home Health Aide Primary Language: British Smoking Status: Former Smoker ETOH Use: denies use Illicit Drug Use: denies illicit drug use Living Will? yes Power of Jig Grinder/HCP? yes Name of POA/HCP: Rolan Rich Functional Ability ADLs Independent: dressing, bathing. Needs Assist: eating. Ambulation: walker IADLs Independent: finances, telephone. Needs Assist: shopping, housework, food prep, transportation, medication admin. Review of Systems Review of Systems All Other Systems: Reviewed and Negative Exam & Diagnostic Data Last 24 Hrs of Vital Signs/I&O Vital Signs Date Time Temp Pulse Resp B/P B/P Pulse O2 O2 Flow FiO2 Mean Ox Delivery Rate 10/13 1451 97.7 80 16 101/55 97 Room Air 10/13 1447 88/48 10/13 0947 80/40 10/13 0626 97.7 95 22 84/42 94 10/13 0428 97.7 95 22 84/42 94 10/12 2206 98.9 89 22 96/52 94 Intake & Output 10/13 1600 10/13 0800 10/13 0000 Intake Total 650 Output Total Balance 650 Intake, IV 650 Patient 115 lb 131 lb Weight Physical Exam Other Physical Findings: She is awake and alert in no acute distress. She is afebrile. Skin reveals no rash. HEENT exam is negative. Neck is supple with no adenopathy. Lungs are clear. Heart regular rhythm with no murmur. Abdomen is soft, nontender with positive bowel sounds. Back no CVA tenderness. Extremities no cyanosis, clubbing or edema. Neuro is without focality. Last 24 Hours of Lab Results: Laboratory Tests 10/13 10/13 0400 0400 Chemistry Sodium (137 - 145 mmol/L) 142 Potassium (3.5 - 5.1 mmol/L) 3.0 L Chloride (98 - 107 mmol/L) 120 H Carbon Dioxide (22 - 30 mmol/L) 15 L Anion Gap (5 - 16) 8 BUN (7 - 17 mg/dL) 33 H Creatinine (0.5 - 1.0 mg/dL) 1.8 H Estimated GFR (>60 ml/min) 27 L BUN/Creatinine Ratio (7 - 25 %) 18.3 Glucose (65 - 99 mg/dL) Cancelled 39 *L Magnesium (1.6 - 2.3 mg/dL) 1.8 Iron (37 - 170 ug/dL) 11 L TIBC (265 - 497 ug/dL) 183 L Ferritin (11.1 - 264 ng/mL) 42.3 TSH (0.270 - 4.200 uIU/mL) 2.070 Hematology CBC w Diff MAN DIFF ORDERED WBC (4.8 - 10.8 /CUMM) 12.9 H RBC (4.20 - 5.40 /CUMM) 2.95 L Hgb (12.0 - 16.0 G/DL) 7.7 L Hct (37 - 47 %) 23.7 L MCV (81.0 - 99.0 FL) 80.1 L MCH (27.0 - 31.0 PG) 26.0 L MCHC (33.0 - 37.0 G/DL) 32.5 L RDW (11.5 - 14.5 %) 18.4 H Plt Count (130 - 400 /CUMM) 243 MPV (7.4 - 10.4 FL) 9.4 Gran % (42.2 - 75.2 %) 77.4 H Lymphocytes % (20.5 - 51.1 %) 7.1 L Monocytes % (1.7 - 9.3 %) 13.0 H Eosinophils % (0 - 5 %) 2.1 Basophils % (0.0 - 2.0 %) 0.4 Absolute Granulocytes (1.4 - 6.5 /CUMM) 10.0 H Segmented Neutrophils (42.2 - 75.2 %) 76 H Band Neutrophils (0.0 - 5.0 %) 4 Absolute Lymphocytes (1.2 - 3.4 /CUMM) 0.9 L Lymphocytes (20.5 - 51.1 %) 11 L Monocytes (1.7 - 9.3 %) 9 Absolute Monocytes (0.10 - 0.60 /CUMM) 1.7 H Absolute Eosinophils (0.0 - 0.7 /CUMM) 0.3 Absolute Basophils (0.0 - 0.2 /CUMM) 0.1 Platelet Estimate (ADEQUATE) ADEQUATE Hypochromic-Microcytic 1+ Poikilocytosis 2+ Anisocytosis 1+ Microcytic Cells 1+ Target Cells FEW Ovalocytes 1+ Jean Cells 1+ Elliptocytes FEW Other Body Source Fld Total RBCs Counted (%) 100 10/12 10/12 1740 1701 Chemistry Lactic Acid Cancelled Hematology CBC w Diff MAN DIFF ORDERED WBC (4.8 - 10.8 /CUMM) 14.1 H RBC (4.20 - 5.40 /CUMM) 2.90 L Hgb (12.0 - 16.0 G/DL) 7.6 L Hct (37 - 47 %) 23.5 L MCV (81.0 - 99.0 FL) 81.1 MCH (27.0 - 31.0 PG) 26.2 L MCHC (33.0 - 37.0 G/DL) 32.3 L RDW (11.5 - 14.5 %) 18.5 H Plt Count (130 - 400 /CUMM) 265 MPV (7.4 - 10.4 FL) 9.6 Gran % (42.2 - 75.2 %) 87.1 H Lymphocytes % (20.5 - 51.1 %) 5.7 L Monocytes % (1.7 - 9.3 %) 6.6 Eosinophils % (0 - 5 %) 0.5 Basophils % (0.0 - 2.0 %) 0.1 Absolute Granulocytes (1.4 - 6.5 /CUMM) 12.3 H Segmented Neutrophils (42.2 - 75.2 %) 69 Band Neutrophils (0.0 - 5.0 %) 20 H Absolute Lymphocytes (1.2 - 3.4 /CUMM) 0.8 L Lymphocytes (20.5 - 51.1 %) 2 L Monocytes (1.7 - 9.3 %) 8 Absolute Monocytes (0.10 - 0.60 /CUMM) 0.9 H Eosinophils (0 - 5.0 %) 1 Absolute Eosinophils (0.0 - 0.7 /CUMM) 0.1 Absolute Basophils (0.0 - 0.2 /CUMM) 0 Platelet Estimate (ADEQUATE) ADEQUATE Hypochromic-Microcytic 2+ Anisocytosis 1+ Microcytic Cells 1+ Last 24 Hours of Emmanuel Results: Blood cultures October 11 1 bottle positive for gram-negative rods Urine culture October 11 greater than 100,000 colonies of gram-negative rods Diagnostic Data Recent Imaging Findings: Chest x-ray was negative for any acute process. CT of the abdomen and revealed improved right hydronephrosis, with no radiopaque calculi. Assessment/Plan Assessment/Plan Impression: This is an 82-year-old woman with a history of recurrent urinary tract infections, last hospitalized 6 months prior to admission with sepsis of urologic origin secondary to E. coli, with a CT of the abdomen and pelvis revealing a right sided Grade 3 hydroureteronephrosis, with no intervention recommended by Urology, admitted on October 11 with nausea, lightheadedness and weakness, found to be afebrile with a leukocytosis, bandemia, renal insufficiency and pyuria with her blood and urine cultures found to be positive for gram negative rods. Her clinical picture is consistent with sepsis of urologic origin. Her hypotension is likely multifactorial, with sepsis likely playing a role, though her blood pressure typically runs low. Her renal failure is also likely multifactorial, secondary to hypovolemia and sepsis, and it is slowly improving with fluids and antibiotics. She does have a mild right hydronephrosis, raising concern for obstruction, though this has improved from her previous study with no intervention. Suggestion: 1. Urology evaluation 2. Follow-up final blood and urine cultures 3. Continue Ceftazidime pending above but would increase to 1 g IV every 12 hours Consult Acknowledgment - Thank you for your consult request.
--- NOTE | 2017-10-13 21:12 | PN- Cardiology ---
Subjective Subjective: * No complaints. * creatinine 2.1 * persistent severe anemia Objective Vital Signs and I&Os Vital Signs Date Time Temp Pulse Resp B/P B/P Pulse O2 O2 Flow FiO2 Mean Ox Delivery Rate 10/13 1451 97.7 80 16 101/55 97 Room Air 10/13 1447 88/48 10/13 0947 80/40 10/13 0626 97.7 95 22 84/42 94 10/13 0428 97.7 95 22 84/42 94 10/12 2206 98.9 89 22 96/52 94 Intake & Output 10/13 1600 10/13 0800 10/13 0000 10/12 1600 10/12 0800 10/12 0000 Intake Total 9510 837 5805 1400 1000 Output Total Balance 9683 006 3570 1400 1000 Intake, Blood 350 Product Intake, IV 062 035 2454 1400 1000 Intake, Oral 500 400 Number 0 0 Bowel Movements Patient 115 lb 131 lb 125 lb Weight Weight Bed scale Measurement Method Physical Exam: General: WD/WN male in NAD; alert and oriented x 3 HEENT: NC/AT, PERRL, EOMI Neck: no JVD, no carotid bruit Heart: RRR w/o murmur Lungs: clear bilaterally Abdomen: soft, NT, +ve bowel sounds Exztremities: no edema Assessment/Plan Assessment/Plan * This patient likely has dizziness and fatigue due to her anemia. It is not clear if this is related to decreased production in the setting of her renal insufficiency or to bleeding but an anemia. Her reticulocyte count is in the normal range despite severe anemia which should be a stimulant to increased production. This patient may benefit from erythropoietin. * This patient appears to have been dehydrated which may, in combination with severe anemia, caused her to be lightheaded and have renal insufficiency. An obstructive process needs to be excluded as a cause of her renal insufficiency, however. If there is no obstruction then her dehydration may be due to the lethargy and inanition that is associated with a urinary tract infection. Obtain a urology consult. * Although hypertension has been reported, the patient is currently hypotensive. I would avoid any antihypertensive medications at this point in time and hydrate with normal saline. Observe for findings consistent with sepsis. * Will review her echocardiogram. Continue telemetry? Yes
[2017-10-13 22:08] VITALS: BP 110/60
[2017-10-14 07:01] VITALS: BP 102/60
--- NOTE | 2017-10-14 07:07 | PN- Housestaff ---
Saulo KING,Josey 10/14/17 0707: Subjective Follow-up For: hypotension and hypoglycemia-improved Weakness, dizziness and near syncope UTI with history of MRSA severe anemia-improved Hyponatremia, hyperkalemia-improved Hypocalcemia Elevated alkaline phosphatase SHREE on CKD (most likely due to dehydration secondary to vomiting and diarrhea)- worsenig Chronic medical condition Tele-Events Since Last Visit: Normal sinus rhythm, 93, 0.06, 0.16, no overnight events Subjective: Patient was seen and examined, denies any complaints, blood pressure is a stable 102/60, blood sugar 229, afebrile Review of Systems Constitutional: Reports: see HPI. Objective Last 24 Hrs of Vital Signs/I&O Vital Signs Date Time Temp Pulse Resp B/P B/P Pulse O2 O2 Flow FiO2 Mean Ox Delivery Rate 10/14 0701 98.1 80 18 102/60 96 Room Air 10/14 0000 Room Air 10/13 2208 98.0 92 16 110/60 94 / 1451 97.7 80 16 101/55 97 Room Air 10/13 1447 88/48 Intake & Output 10/14 1600 10/14 0800 10/14 0000 Intake Total 440 1250 Output Total Balance 440 1250 Intake, IV 800 Intake, Oral 440 450 Patient 141 lb Weight Weight Bed scale Measurement Method Physical Exam General Appearance: Alert, Oriented X3, Cooperative, No Acute Distress Cardiovascular: Normal S1, Normal S2 Lungs: Clear to Auscultation Abdomen: Normal Bowel Sounds, Soft, No Tenderness Extremities: No Clubbing, No Cyanosis, No Edema Assessment/Plan Assessment: 82 years old female with past medical history of celiac disease,type 1 diabetes, recurrent UTI, chronic anemia, reactive thrombocytopenia, overactive bladder, urine incontinence, depression presented to the ED complaining of weakness and dizziness for 3 days, the patient is doing better today with a stable blood pressure, after increasing ceftaz dose to 1 g twice daily daily, her blood sugar is in the 200 today, her culture sensitivity are still pending Problem list: hypotension and hypoglycemiaimproved Weakness, dizziness and near syncope Urosepsis, gram-negative bacteremia severe anemia S/P 1 unit PRBCs Hyponatremia, hyperkalemia-improved Hypocalcemia Elevated alkaline phosphatase SHREE on CKD (most likely due to dehydration secondary to vomiting and diarrhea)- slowly improving Chronic medical condition Plan: continue to monitor on telemetry floor Continuous telemetry monitoring Continue ceftazidime 1 g twice daily daily (day 3) Follow-up on blood culture and urine culture sensitivity results CT abdomen showed improved mild right-sided hydronephrosis, small bilateral pleural effusion Close monitoring of BEP especially potassium Insulin sliding scale, with decreased this morning Increase Levemir to 6 units daily Adjust NovoLog scale as per endocrinology recommendation Add a can of Glucerna and a cup of fruit to each meal Accu-Chek Continue rehydration with IV normal saline at 100 cc/h Unable to assess the output because the patient is incontinent and refuses Dove H&H stable after 1 unit of PRBCs, she is guaiac positive, will continue to follow CBCs Follow-up on iron studies Kidney function is the same Continue home meds ID, urology, endocrinology recommendations appreciated Iron studies showed iron deficiency anemia, was started on ferrous sulfate p.o. 1 dose of erythropoietin DVT prophylaxis with subcutaneous heparin Consistent carbohydrate diet Full code Problem List: 1. SHREE (acute kidney injury) 2. UTI (urinary tract infection) Pain Ratin Pain Location: N/A Pain Goal: Remain pain free Pain Plan: Pathway Tomorrow's Labs & Rationales: CBC BEP Norma Kitchen 10/14/17 1147: Attending MD Review Statement Attending Statement Attending MD Statement: examined this patient, discuss w/resident/PA/COMPOSING ROOM MACHINIST, agreed w/resident/PA/COMPOSING ROOM MACHINIST, discussed with family, reviewed EMR data (avail), discussed with nursing, discussed with case mgmt, reviewed images, amended to note Attending Assessment/Plan: Patient with no new complaints. Her bp is always low and close to her baseline. Her creatinine functon is 2.1 today. She is receiving iv ceftaz for her UTI in conusltation with ID. Urology cosnult pending though CT abd/pelvis showed improvement in her hydronephrosis. Constipation given dulcolax, monitor bowel movement. Can give erythropoeitin for anemia of kidney disease, also iron supplementation. She did receive blood transfusion during this hospital stay. Cont current care..
--- NOTE | 2017-10-14 08:16 | PN- Diabetes ---
Assessment/Plan Diabetes Assessment: Patient states she feels improved. Her blood sugar was 283 this morning. The patient's Levemir was decreased to 5 units once a day in the morning yesterday. Her fingerstick blood sugars were 278 before breakfast, 171 before lunch, 188 before dinner, and 73 at bedtime. Plan: Suggest increase Levemir to 6 units each a.m. In addition we would like to adjust her sliding scale NovoLog. Sliding scale NovoLog before meals should be 100-150 give 2 units NovoLog, 151-200 give 2 units NovoLog, 201-250 give 3 units NovoLog, 251-300 give 4 units NovoLog, 301- 350 give 4 units NovoLog, The patient has had no further severe low so that we can check her sugars 4 times a day before meals and at bedtime. Subjective Subjective: Feels okay Review of Systems Constitutional: Denies: chills, fever. Cardiovascular: Denies: chest pain. Respiratory: Denies: cough, short of breath. Gastrointestinal: Denies: abdominal pain, vomiting. Objective Last 24 Hrs of Vital Signs/I&O Vital Signs Date Time Temp Pulse Resp B/P B/P Pulse O2 O2 Flow FiO2 Mean Ox Delivery Rate 10/14 0701 98.1 80 18 102/60 96 Room Air 10/14 0000 Room Air 10/13 2208 98.0 92 16 110/60 94 10/13 1451 97.7 80 16 101/55 97 Room Air 10/13 1447 88/48 10/13 0947 80/40 Intake & Output 10/14 1600 10/14 0800 10/14 0000 Intake Total 1250 Output Total Balance 1250 Intake, IV 800 Intake, Oral 450 Patient 141 lb Weight Weight Bed scale Measurement Method Vital Signs Date Time Temp Pulse Resp B/P B/P Pulse O2 O2 Flow FiO2 Mean Ox Delivery Rate 10/14 0701 98.1 80 18 102/60 96 Room Air 10/14 0000 Room Air 10/13 2208 98.0 92 16 110/60 94 10/13 1451 97.7 80 16 101/55 97 Room Air 10/13 1447 88/48 10/13 0947 80/40 Intake & Output 10/14 1600 10/14 0800 10/14 0000 Intake Total 1250 Output Total Balance 1250 Intake, IV 800 Intake, Oral 450 Patient 141 lb Weight Weight Bed scale Measurement Method Physical Exam General Appearance: alert, awake Head: normal appearance Neck: normal inspection Respiratory: normal breath sounds Cardiovascular: regular rate/rhythm Abdomen: normal bowel sounds Extremities: normal inspection Current Medications: Current Medications Sig/Tevin Start time Last Medication Dose Route Stop Time Status Admin Acetaminophen 650 MG Q6P PRN 10/11 1545 AC 10/13 PO 0404 Bisacodyl 5 MG ONE ONE 10/13 2045 DC 10/13 PO 10/13 2046 2247 Bisacodyl 5 MG DAILY PRN 10/13 1045 AC 10/13 PO 1204 Ceftazidime 1,000 MG Q12H 10/14 1800 AC IV Ceftazidime 1,000 MG Q12H 10/13 1600 DC 10/14 IV 0525 Ceftazidime 1,000 MG Q24H 10/12 1645 DC 10/12 IV 1833 Escitalopram Oxalate 5 MG DAILY 10/12 0900 AC 10/13 PO 1038 Ferrous Sulfate 325 MG DAILY 10/13 1609 AC 10/13 PO 2124 Insulin Aspart 0 TIDAC/HS 10/12 1200 AC 10/13 SC 1736 Insulin Detemir 5 UNITS DAILY 10/13 0900 AC 10/13 SC 1033 Insulin Detemir 4 UNITS BID 10/12 0900 DC 10/12 SC 0908 Magnesium Oxide 400 MG ONE ONE 10/13 0845 DC 10/13 PO 10/13 0846 1037 Melatonin 5 MG ONCE ONE 10/13 2030 DC 10/13 PO 10/13 2031 2123 Nystatin 1 MARLYS BID 10/13 0900 AC 10/13 TOP 2124 Omeprazole 40 MG DAILY AC 10/12 1644 AC 10/14 PO 0525 Potassium Chloride 40 MEQ ONCE ONE 10/13 0900 DC 10/13 PO 10/13 0901 1036 Potassium Chloride 40 MEQ TID 10/13 0730 DC PO 10/13 1401 Sodium Chloride 1,000 ML Q10H 10/13 1315 DC 10/13 IV 10/13 2314 0830 Sodium Chloride 1,000 ML Q13H 10/12 2230 DC 10/12 IV 10/13 0829 2257 Findings Pertinent Lab/Emmanuel Results: Laboratory Tests 10/14 10/13 10/13 10/13 0635 1718 1715 1500 Blood Gas Bicarbonate Actual (22 - 26 MEQ/L) 16 L Mixed VBG pH (7.31 - 7.41 PH) 7.34 Mixed VBG pCO2 (41 - 51 TORR) 30.5 L Mixed VBG O2 Saturation (35 - 45 TORR) 44.2 Carboxyhemoglobin (1.5 - 5.0 %) 0.1 L O2 Concentration % RA O2 Delivery Method RA Chemistry Sodium (137 - 145 mmol/L) Pending 140 Cancelled Potassium (3.5 - 5.1 mmol/L) Pending 4.2 Cancelled Chloride (98 - 107 mmol/L) Pending 113 H Cancelled Carbon Dioxide (22 - 30 mmol/L) Pending 18 L Cancelled Anion Gap (5 - 16) Pending 9 Cancelled BUN (7 - 17 mg/dL) Pending 35 H Cancelled Creatinine (0.5 - 1.0 mg/dL) Pending 2.1 H Cancelled Estimated GFR (>60 ml/min) 23 L BUN/Creatinine Ratio (7 - 25 %) Pending 16.7 Cancelled Hematology CBC w Diff Pending WBC Pending RBC Pending Hgb Pending Hct Pending MCV Pending MCH Pending MCHC Pending RDW Pending Plt Count Pending MPV Pending Miscellaneous Phlebotomy Draw Site R. 10/13 10/13 0400 0400 Chemistry Sodium (137 - 145 mmol/L) 142 Potassium (3.5 - 5.1 mmol/L) 3.0 L Chloride (98 - 107 mmol/L) 120 H Carbon Dioxide (22 - 30 mmol/L) 15 L Anion Gap (5 - 16) 8 BUN (7 - 17 mg/dL) 33 H Creatinine (0.5 - 1.0 mg/dL) 1.8 H Estimated GFR (>60 ml/min) 27 L BUN/Creatinine Ratio (7 - 25 %) 18.3 Glucose (65 - 99 mg/dL) Cancelled 39 *L Magnesium (1.6 - 2.3 mg/dL) 1.8 Iron (37 - 170 ug/dL) 11 L TIBC (265 - 497 ug/dL) 183 L Ferritin (11.1 - 264 ng/mL) 42.3 TSH (0.270 - 4.200 uIU/mL) 2.070 Hematology CBC w Diff MAN DIFF ORDERED WBC (4.8 - 10.8 /CUMM) 12.9 H RBC (4.20 - 5.40 /CUMM) 2.95 L Hgb (12.0 - 16.0 G/DL) 7.7 L Hct (37 - 47 %) 23.7 L MCV (81.0 - 99.0 FL) 80.1 L MCH (27.0 - 31.0 PG) 26.0 L MCHC (33.0 - 37.0 G/DL) 32.5 L RDW (11.5 - 14.5 %) 18.4 H Plt Count (130 - 400 /CUMM) 243 MPV (7.4 - 10.4 FL) 9.4 Gran % (42.2 - 75.2 %) 77.4 H Lymphocytes % (20.5 - 51.1 %) 7.1 L Monocytes % (1.7 - 9.3 %) 13.0 H Eosinophils % (0 - 5 %) 2.1 Basophils % (0.0 - 2.0 %) 0.4 Absolute Granulocytes (1.4 - 6.5 /CUMM) 10.0 H Segmented Neutrophils (42.2 - 75.2 %) 76 H Band Neutrophils (0.0 - 5.0 %) 4 Absolute Lymphocytes (1.2 - 3.4 /CUMM) 0.9 L Lymphocytes (20.5 - 51.1 %) 11 L Monocytes (1.7 - 9.3 %) 9 Absolute Monocytes (0.10 - 0.60 /CUMM) 1.7 H Absolute Eosinophils (0.0 - 0.7 /CUMM) 0.3 Absolute Basophils (0.0 - 0.2 /CUMM) 0.1 Platelet Estimate (ADEQUATE) ADEQUATE Hypochromic-Microcytic 1+ Poikilocytosis 2+ Anisocytosis 1+ Microcytic Cells 1+ Target Cells FEW Ovalocytes 1+ Jean Cells 1+ Elliptocytes FEW Retic Count (0.5 - 2.0 %) 1.98 Other Body Source Fld Total RBCs Counted (%) 100 10/12 10/12 10/12 1740 1701 1430 Chemistry Lactic Acid Cancelled Troponin I (< 0.11 ng/ml) < 0.01 Hematology CBC w Diff MAN DIFF ORDERED WBC (4.8 - 10.8 /CUMM) 14.1 H RBC (4.20 - 5.40 /CUMM) 2.90 L Hgb (12.0 - 16.0 G/DL) 7.6 L Hct (37 - 47 %) 23.5 L MCV (81.0 - 99.0 FL) 81.1 MCH (27.0 - 31.0 PG) 26.2 L MCHC (33.0 - 37.0 G/DL) 32.3 L RDW (11.5 - 14.5 %) 18.5 H Plt Count (130 - 400 /CUMM) 265 MPV (7.4 - 10.4 FL) 9.6 Gran % (42.2 - 75.2 %) 87.1 H Lymphocytes % (20.5 - 51.1 %) 5.7 L Monocytes % (1.7 - 9.3 %) 6.6 Eosinophils % (0 - 5 %) 0.5 Basophils % (0.0 - 2.0 %) 0.1 Absolute Granulocytes (1.4 - 6.5 /CUMM) 12.3 H Segmented Neutrophils (42.2 - 75.2 %) 69 Band Neutrophils (0.0 - 5.0 %) 20 H Absolute Lymphocytes (1.2 - 3.4 /CUMM) 0.8 L Lymphocytes (20.5 - 51.1 %) 2 L Monocytes (1.7 - 9.3 %) 8 Absolute Monocytes (0.10 - 0.60 /CUMM) 0.9 H Eosinophils (0 - 5.0 %) 1 Absolute Eosinophils (0.0 - 0.7 /CUMM) 0.1 Absolute Basophils (0.0 - 0.2 /CUMM) 0 Platelet Estimate (ADEQUATE) ADEQUATE Hypochromic-Microcytic 2+ Anisocytosis 1+ Microcytic Cells 1+ 10/12 10/12 1430 1200 Chemistry Lactic Acid (0.7 - 2.1 mmol/L) 0.9 Hematology CBC w Diff MAN DIFF ORDERED WBC (4.8 - 10.8 /CUMM) 17.2 H RBC (4.20 - 5.40 /CUMM) 2.61 L Hgb (12.0 - 16.0 G/DL) 6.6 *L Hct (37 - 47 %) 20.6 L MCV (81.0 - 99.0 FL) 79.2 L MCH (27.0 - 31.0 PG) 25.4 L MCHC (33.0 - 37.0 G/DL) 32.0 L RDW (11.5 - 14.5 %) 18.9 H Plt Count (130 - 400 /CUMM) 279 MPV (7.4 - 10.4 FL) 9.7 Gran % (42.2 - 75.2 %) 88.5 H Lymphocytes % (20.5 - 51.1 %) 3.6 L Monocytes % (1.7 - 9.3 %) 7.7 Eosinophils % (0 - 5 %) 0.2 Basophils % (0.0 - 2.0 %) 0 Absolute Granulocytes (1.4 - 6.5 /CUMM) 15.2 H Segmented Neutrophils (42.2 - 75.2 %) 63 Band Neutrophils (0.0 - 5.0 %) 20 H Absolute Lymphocytes (1.2 - 3.4 /CUMM) 0.6 L Lymphocytes (20.5 - 51.1 %) 8 L Monocytes (1.7 - 9.3 %) 9 Absolute Monocytes (0.10 - 0.60 /CUMM) 1.3 H Absolute Eosinophils (0.0 - 0.7 /CUMM) 0 Absolute Basophils (0.0 - 0.2 /CUMM) 0 Platelet Estimate (ADEQUATE) VERIFIED BY SMEAR Polychromasia 1+ Hypochromic-Microcytic 1+ Anisocytosis 1+ Microcytic Cells 1+ Target Cells
[2017-10-14 08:28] LABS: ABSOLUTE BASOPHIL COUNT 0.1 /CUMM (0.0-0.2); ABSOLUTE EOSINOPHIL COUNT 0.4 /CUMM (0.0-0.7); ABSOLUTE GRANULOCYTE CT 8.9 /CUMM (1.4-6.5); ABSOLUTE LYMPH COUNT 0.7 /CUMM (1.2-3.4); BASOPHIL % 0.6 % (0.0-2.0); EOSINOPHIL % 3.5 % (0-5); GRANULOCYTE % 80.7 % (42.2-75.2); HEMATOCRIT 25.6 % (37-47); MEAN CORPUSCULAR HGB 25.3 PG (27.0-31.0); MEAN CORPUSCULAR HGB CONC 31.6 G/DL (33.0-37.0); MEAN CORPUSCULAR VOLUME 80.1 FL (81.0-99.0); MEAN PLATELET VOLUME 9.8 FL (7.4-10.4); PLATELET COUNT 306 /CUMM (130-400); RBC DISTRIBUTION WIDTH 18.7 % (11.5-14.5); RED BLOOD CELL CT 3.19 /CUMM (4.20-5.40)
--- NOTE | 2017-10-14 08:28 | PN- Student ---
Subjective Subjective: Follow-up for UTI complicated by hyperkalemia, hypotension, uncontrolled blood glucose, and SHREE. This morning she appears well and said that she slept well during the night. She was given dulcolax last night because she has not had a BM in several days but has not gone yet. She had no concerns this morning besides some swelling in her right middle finger. She denied any headache, dizziness, chest pain, shortness of breath. She got out of bed and into a chair with 2 people assisting her, and didn't experience any dizziness. Objective Objective: Vital Signs Date Time Temp Pulse Resp B/P B/P Pulse O2 O2 Flow FiO2 Mean Ox Delivery Rate 10/14 0701 98.1 80 18 102/60 96 Room Air 10/14 0000 Room Air 10/13 2208 98.0 92 16 110/60 94 10/13 1451 97.7 80 16 101/55 97 Room Air 10/13 1447 88/48 Physical Exam: General: AOx3, in no apparent distress, conversation appropriate Skin: pink, no central or peripheral cyanosis, no rashes or ulcers noted HEENT: normocephalic, atraumatic, gross hearing intact Heart: soft s1 and s2, no MRG appreciated Lungs: no use of accessory msucles, lungs clear to auscultation bilaterally Abdomen: normoactive bowel sounsd, soft, non-tender MSK: no lower extremity edema Current Medications Sig/Tevin Start time Last Medication Dose Route Stop Time Status Admin Acetaminophen 650 MG Q6P PRN 10/11 1545 AC 10/13 PO 0404 Bisacodyl 5 MG ONE ONE 10/135 DC 10/13 PO 10/13 2045 2247 Bisacodyl 5 MG DAILY PRN 10/13 1045 AC 10/13 PO 1204 Ceftazidime 1,000 MG Q12H 10/14 1800 AC IV Ceftazidime 1,000 MG Q12H 10/13 1600 DC 10/14 IV 0525 Ceftazidime 1,000 MG Q24H 10/12 1645 DC 10/12 IV 1833 Escitalopram Oxalate 5 MG DAILY 10/12 0900 AC 10/14 PO 0830 Ferrous Sulfate 325 MG DAILY 10/14 2100 AC PO Ferrous Sulfate 325 MG DAILY 10/13 1609 DC 10/13 PO 2124 Insulin Aspart 0 TIDAC/HS 10/12 1200 AC 10/14 SC 0831 Insulin Detemir 6 UNITS DAILY 10/15 0900 AC SC Insulin Detemir 1 UNITS ONCE ONE 10/14 0900 DC SC 10/14 0901 Insulin Detemir 5 UNITS DAILY 10/13 0900 DC 10/14 SC 0830 Melatonin 5 MG ONCE ONE 10/13 2030 DC 10/13 PO 10/13 2030 2123 Nystatin 1 MARLYS BID 10/13 0900 AC 10/14 TOP 0835 Omeprazole 40 MG DAILY AC 10/12 1644 AC 10/14 PO 0525 Sodium Chloride 1,000 ML Q10H 10/13 1315 DC 10/13 IV 10/13 2314 0830 Laboratory Tests 10/14 10/13 10/13 0635 1718 1715 Blood Gas Bicarbonate Actual (22 - 26 MEQ/L) 16 L Mixed VBG pH (7.31 - 7.41 PH) 7.34 Mixed VBG pCO2 (41 - 51 TORR) 30.5 L Mixed VBG O2 Saturation (35 - 45 TORR) 44.2 Carboxyhemoglobin (1.5 - 5.0 %) 0.1 L O2 Concentration % RA O2 Delivery Method RA Chemistry Sodium (137 - 145 mmol/L) 141 140 Potassium (3.5 - 5.1 mmol/L) 4.9 4.2 Chloride (98 - 107 mmol/L) 113 H 113 H Carbon Dioxide (22 - 30 mmol/L) 16 L 18 L Anion Gap (5 - 16) 11 9 BUN (7 - 17 mg/dL) 31 H 35 H Creatinine (0.5 - 1.0 mg/dL) 2.1 H 2.1 H Estimated GFR (>60 ml/min) 23 L 23 L BUN/Creatinine Ratio (7 - 25 %) 14.8 16.7 Hematology CBC w Diff MAN DIFF ORDERED WBC (4.8 - 10.8 /CUMM) 11.0 H RBC (4.20 - 5.40 /CUMM) 3.19 L Hgb (12.0 - 16.0 G/DL) 8.1 L Hct (37 - 47 %) 25.6 L MCV (81.0 - 99.0 FL) 80.1 L MCH (27.0 - 31.0 PG) 25.3 L MCHC (33.0 - 37.0 G/DL) 31.6 L RDW (11.5 - 14.5 %) 18.7 H Plt Count (130 - 400 /CUMM) 306 MPV (7.4 - 10.4 FL) 9.8 Gran % (42.2 - 75.2 %) 80.7 H Lymphocytes % (20.5 - 51.1 %) 6.4 L Monocytes % (1.7 - 9.3 %) 8.8 Eosinophils % (0 - 5 %) 3.5 Basophils % (0.0 - 2.0 %) 0.6 Absolute Granulocytes (1.4 - 6.5 /CUMM) 8.9 H Segmented Neutrophils (42.2 - 75.2 %) Pending Absolute Lymphocytes (1.2 - 3.4 /CUMM) 0.7 L Absolute Monocytes (0.10 - 0.60 /CUMM) 1.0 H Absolute Eosinophils (0.0 - 0.7 /CUMM) 0.4 Absolute Basophils (0.0 - 0.2 /CUMM) 0.1 Miscellaneous Phlebotomy Draw Site [facility] 10/13 1500 Chemistry Sodium Cancelled Potassium Cancelled Chloride Cancelled Carbon Dioxide Cancelled Anion Gap Cancelled BUN Cancelled Creatinine Cancelled BUN/Creatinine Ratio Cancelled Results Results: Laboratory Tests 10/14/17 0635: Anion Gap 11, Estimated GFR 23 L, BUN/Creatinine Ratio 14.8, CBC w Diff MAN DIFF ORDERED, RBC 3.19 L, MCV 80.1 L, MCH 25.3 L, MCHC 31.6 L, RDW 18.7 H, MPV 9.8, Gran % 80.7 H, Lymphocytes % 6.4 L, Monocytes % 8.8, Eosinophils % 3.5, Basophils % 0.6, Absolute Granulocytes 8.9 H, Segmented Neutrophils Pending, Absolute Lymphocytes 0.7 L, Absolute Monocytes 1.0 H, Absolute Eosinophils 0.4, Absolute Basophils 0.1 10/13/17 1718: Anion Gap 9, Estimated GFR 23 L, BUN/Creatinine Ratio 16.7 10/13/17 1715: Bicarbonate Actual 16 L, Mixed VBG pH 7.34, Mixed VBG pCO2 30.5 L, Mixed VBG O2 Saturation 44.2, Carboxyhemoglobin 0.1 L, O2 Concentration % RA, O2 Delivery Method RA, Phlebotomy Draw Site [facility] 10/13/17 1500: Sodium Cancelled, Potassium Cancelled, Chloride Cancelled, Carbon Dioxide Cancelled, Anion Gap Cancelled, BUN Cancelled, Creatinine Cancelled, BUN/ Creatinine Ratio Cancelled 10/13/17 0400: Glucose Cancelled 10/13/17 0400: Anion Gap 8, Estimated GFR 27 L, BUN/Creatinine Ratio 18.3, Glucose 39 *L, Magnesium 1.8, Iron 11 L, TIBC 183 L, Ferritin 42.3, TSH 2.070, CBC w Diff MAN DIFF ORDERED, RBC 2.95 L, MCV 80.1 L, MCH 26.0 L, MCHC 32.5 L, RDW 18.4 H, MPV 9.4, Gran % 77.4 H, Lymphocytes % 7.1 L, Monocytes % 13.0 H, Eosinophils % 2.1, Basophils % 0.4, Absolute Granulocytes 10.0 H, Segmented Neutrophils 76 H, Band Neutrophils 4, Absolute Lymphocytes 0.9 L, Lymphocytes 11 L, Monocytes 9, Absolute Monocytes 1.7 H, Absolute Eosinophils 0.3, Absolute Basophils 0.1, Platelet Estimate ADEQUATE, Hypochromic-Microcytic 1+, Poikilocytosis 2+, Anisocytosis 1+, Microcytic Cells 1+, Target Cells FEW, Ovalocytes 1+, [place] Cells 1+, Elliptocytes FEW, Retic Count 1.98, Fld Total RBCs Counted 100 10/12/17 1740: CBC w Diff MAN DIFF ORDERED, RBC 2.90 L, MCV 81.1, MCH 26.2 L, MCHC 32.3 L, RDW 18.5 H, MPV 9.6, Gran % 87.1 H, Lymphocytes % 5.7 L, Monocytes % 6.6, Eosinophils % 0.5, Basophils % 0.1, Absolute Granulocytes 12.3 H, Segmented Neutrophils 69, Band Neutrophils 20 H, Absolute Lymphocytes 0.8 L, Lymphocytes 2 L, Monocytes 8, Absolute Monocytes 0.9 H, Eosinophils 1, Absolute Eosinophils 0.1, Absolute Basophils 0, Platelet Estimate ADEQUATE, Hypochromic- Microcytic 2+, Anisocytosis 1+, Microcytic Cells 1+ 10/12/17 1701: Lactic Acid Cancelled 10/12/17 1430: Troponin I < 0.01 10/12/17 1430: Lactic Acid 0.9 10/12/17 1200: CBC w Diff MAN DIFF ORDERED, RBC 2.61 L, MCV 79.2 L, MCH 25.4 L, MCHC 32.0 L , RDW 18.9 H, MPV 9.7, Gran % 88.5 H, Lymphocytes % 3.6 L, Monocytes % 7.7, Eosinophils % 0.2, Basophils % 0, Absolute Granulocytes 15.2 H, Segmented Neutrophils 63, Band Neutrophils 20 H, Absolute Lymphocytes 0.6 L, Lymphocytes 8 L, Monocytes 9, Absolute Monocytes 1.3 H, Absolute Eosinophils 0, Absolute Basophils 0, Platelet Estimate VERIFIED BY SMEAR, Polychromasia 1+, Hypochromic- Microcytic 1+, Anisocytosis 1+, Microcytic Cells 1+, Target Cells 10/12/17 0637: CBC w Diff NO MAN DIFF REQ, RBC 2.61 L, MCV 79.7 L, MCH 25.1 L, MCHC 31.5 L, RDW 19.3 H, MPV 9.5, Gran % 88.0 H, Lymphocytes % 3.8 L, Monocytes % 7.4, Eosinophils % 0.8, Basophils % 0, Absolute Granulocytes 9.2 H, Absolute Lymphocytes 0.4 L, Absolute Monocytes 0.8 H, Absolute Eosinophils 0.1, Absolute Basophils 0 10/12/17 0600: Sodium Cancelled, Potassium Cancelled, Chloride Cancelled, Carbon Dioxide Cancelled, Anion Gap Cancelled, BUN Cancelled, Creatinine Cancelled, BUN/ Creatinine Ratio Cancelled 10/12/17 0545: Glucose Cancelled, Nlm-X-Nanxcxikweb Pept Cancelled 10/12/17 0545: Anion Gap 14, Estimated GFR 19 L, BUN/Creatinine Ratio 18.4, Glucose 34 *L, Pro -B-Natriuretic Pept 48538 H, Cortisol AM Sample 30.1 H 10/11/17 2003: 10/11/17 1653: Urinalysis LIGHT H, Urine Color YEL, Urine Clarity CLDY H, Urine pH 6.0, Ur Specific [place] 1.015, Urine Protein 30 H, Urine Ketones NEG, Urine Nitrite POS H, Urine Bilirubin NEG, Urine Urobilinogen 0.2, Ur Leukocyte Esterase LARGE H, Ur Microscopic SEDIMENT EXAMINED, Urine RBC 10-15 H, Urine WBC PACKD H, Ur Epithelial Cells FEW, Urine Bacteria PACKD H, Urine Mucus FEW, Urine Hemoglobin LARGE H, Urine Glucose 500 H 10/11/17 1318: Lactic Acid 1.6 10/11/17 1318: Anion Gap 14, Estimated GFR 17 L, BUN/Creatinine Ratio 20.7, Glucose 362 H, Calcium 8.3 L, Total Bilirubin 0.3, AST 18, ALT 13, Alkaline Phosphatase 129 H , Troponin I < 0.01, Total Protein 6.2 L, Albumin 2.9 L, Globulin 3.3, Albumin /Globulin Ratio 0.9 L, Amylase 33, Lipase 18 L, CBC w Diff MAN DIFF ORDERED, RBC 3.48 L, MCV 80.2 L, MCH 25.3 L, MCHC 31.6 L, RDW 19.3 H, MPV 9.1, Gran % 94.8 H, Lymphocytes % 3.6 L, Monocytes % 1.6 L, Eosinophils % 0, Basophils % 0, Absolute Granulocytes 18.2 H, Segmented Neutrophils 75, Band Neutrophils 10 H, Absolute Lymphocytes 0.7 L, Lymphocytes 4 L, Monocytes 11 H, Absolute Monocytes 0.3, Absolute Eosinophils 0, Absolute Basophils 0, Platelet Estimate ADEQUATE, Hypochromic-Microcytic 2+, Anisocytosis 1+, Acetone Level NEGATIVE Microbiology 10/11 170 BLOOD: Blood Culture - RES GRAM NEGATIVE RODS 10/12 1703 BLOOD: Blood Culture - RES 10/11 1653 URINE ROUT: Urine Culture - RES GRAM NEGATIVE RODS Assessment/Plan Assessment: The patient is an 82 year old female with a PMHx of T1DM on insulin, recurrent UTIs, urinary incontinence at baseline, chronic microcytic anemia, and h/o right hip fracture s/p ORIF 2 yrs ago who presented with several days of weakness and one near syncopal episode the morning she was admitted following multiple bouts of vomiting and diarrhea. She presented with a BG of 362, Na+ 132, and K+ 5.8. She is being treated for a UTI and bactermia growing gram negative rods, sensitivity still pending. She had signs of sepsis but remains afebrile, her WBCs are trending downward and her blood pressure has returned to her baseline. Her iron studies were consistent with iron deficiency anemia. Plan: UTI/Bacteremia: Ceftazidine 1000mg BID as per Infectious Disease Normal saline 1000mL Q10 IV Diabetes: Endocrinology consult 1. one can of glucerna and a cup of fresh fruit to her meals; 2. Increase Levemir from 5 to 6 units jayesh 3. adjust Novolog coverage before meals 4. continue the current Novolog coverage at bedtime; 5. monitor FSGs. 6. monitor her renal function and electrolytes. SHREE: Monitor BUN and Cr Today was 35 and 2.1 respectively Monitor serum electrolytes Urine electrolytes- difficulty obtaining urine sample VBG showed normal pH Urology consult pending Hydronephrosis is improving without intervention since her last visit to [facility] Hypotension/anemia: Gave 1 unit of blood Gave 5,000 units EPO Cardiology consult -avoid hypertensive medications -obtain echo Replete iron Patient's H/H is up from 7.7/23.7 to 8.1/25.6 since yesterday Percent transferrin saturation = iron/TIBC x 100 = 11/183 x100 = 6% which is consistent with a diagnosis of iron deficiency anemia Investigate cause of iron deficiency Constipation: Continue dulcolax as needed
--- NOTE | 2017-10-14 11:51 | PN- Infect Dx ---
Subjective Subjective: Afebrile without complaints Objective Last 24 Hrs of Vital Signs/I&O Vital Signs Date Time Temp Pulse Resp B/P B/P Pulse O2 O2 Flow FiO2 Mean Ox Delivery Rate 10/14 0701 98.1 80 18 102/60 96 Room Air 10/14 0000 Room Air 10/13 2208 98.0 92 16 110/60 94 10/13 1451 97.7 80 16 101/55 97 Room Air 10/13 1447 88/48 Intake & Output 10/14 1600 10/14 0800 10/14 0000 Intake Total 440 1250 Output Total Balance 440 1250 Intake, IV 800 Intake, Oral 440 450 Patient 141 lb Weight Weight Bed scale Measurement Method Physical Exam Other Physical Findings: She appears comfortable in no acute distress Lungs are clear Heart regular rhythm without murmur Back no CVA tenderness Extremities no cyanosis, clubbing or edema Results Last 24 Hours of Lab Results: Laboratory Tests 10/14 10/13 10/13 0635 1718 1715 Blood Gas Bicarbonate Actual (22 - 26 MEQ/L) 16 L Mixed VBG pH (7.31 - 7.41 PH) 7.34 Mixed VBG pCO2 (41 - 51 TORR) 30.5 L Mixed VBG O2 Saturation (35 - 45 TORR) 44.2 Carboxyhemoglobin (1.5 - 5.0 %) 0.1 L O2 Concentration % RA O2 Delivery Method RA Chemistry Sodium (137 - 145 mmol/L) 141 140 Potassium (3.5 - 5.1 mmol/L) 4.9 4.2 Chloride (98 - 107 mmol/L) 113 H 113 H Carbon Dioxide (22 - 30 mmol/L) 16 L 18 L Anion Gap (5 - 16) 11 9 BUN (7 - 17 mg/dL) 31 H 35 H Creatinine (0.5 - 1.0 mg/dL) 2.1 H 2.1 H Estimated GFR (>60 ml/min) 23 L 23 L BUN/Creatinine Ratio (7 - 25 %) 14.8 16.7 Hematology CBC w Diff MAN DIFF ORDERED WBC (4.8 - 10.8 /CUMM) 11.0 H RBC (4.20 - 5.40 /CUMM) 3.19 L Hgb (12.0 - 16.0 G/DL) 8.1 L Hct (37 - 47 %) 25.6 L MCV (81.0 - 99.0 FL) 80.1 L MCH (27.0 - 31.0 PG) 25.3 L MCHC (33.0 - 37.0 G/DL) 31.6 L RDW (11.5 - 14.5 %) 18.7 H Plt Count (130 - 400 /CUMM) 306 MPV (7.4 - 10.4 FL) 9.8 Gran % (42.2 - 75.2 %) 80.7 H Lymphocytes % (20.5 - 51.1 %) 6.4 L Monocytes % (1.7 - 9.3 %) 8.8 Eosinophils % (0 - 5 %) 3.5 Basophils % (0.0 - 2.0 %) 0.6 Absolute Granulocytes (1.4 - 6.5 /CUMM) 8.9 H Segmented Neutrophils (42.2 - 75.2 %) 67 Band Neutrophils (0.0 - 5.0 %) 15 H Absolute Lymphocytes (1.2 - 3.4 /CUMM) 0.7 L Lymphocytes (20.5 - 51.1 %) 6 L Monocytes (1.7 - 9.3 %) 8 Absolute Monocytes (0.10 - 0.60 /CUMM) 1.0 H Eosinophils (0 - 5.0 %) 3 Absolute Eosinophils (0.0 - 0.7 /CUMM) 0.4 Basophils (0.0 - 2.0 %) 1 Absolute Basophils (0.0 - 0.2 /CUMM) 0.1 Platelet Estimate (ADEQUATE) VERIFIED BY SMEAR Poikilocytosis 1+ Anisocytosis 1+ Jean Cells 1+ Miscellaneous Phlebotomy [facility] 10/13 1500 Chemistry Sodium Cancelled Potassium Cancelled Chloride Cancelled Carbon Dioxide Cancelled Anion Gap Cancelled BUN Cancelled Creatinine Cancelled BUN/Creatinine Ratio Cancelled Last 24 Hours of [place] Results: Blood cultures October 11 1 bottle positive for gram-negative rods, ID pending Urine culture October 11 greater than 100,000 colonies of gram-negative rods, ID pending Assessment/Plan ID Impression: Doing well, with temperatures remaining normal and white blood cell count continuing to decrease, on Ceftazidime, Day 3 of treatment for sepsis of urologic origin, with her blood and urine cultures positive for gram-negative rods, which are awaiting identification. Her CAT scan did reveal a mild right hydronephrosis, improved from her previous study, but, in view of her recurrent urinary tract infections, Urology follow-up would be helpful. Suggestion: 1. Urology evaluation 2. Follow-up final blood and urine cultures 3. Discontinue Ceftazidime 4. Begin Ceftriaxone 1 g IV every 24 hours pending above
[2017-10-14 14:28] VITALS: BP 110/60
--- NOTE | 2017-10-14 17:44 | PN- Cardiology ---
Subjective Subjective: * No complaints. * sinus rhythm * improved blood pressure * creatinine 2.1 * moderate anemia persists Objective Vital Signs and I&Os Vital Signs Date Time Temp Pulse Resp B/P B/P Pulse O2 O2 Flow FiO2 Mean Ox Delivery Rate 10/14 1428 97.9 82 18 110/60 97 Room Air 10/14 0701 98.1 80 18 102/60 96 Room Air 10/14 0000 Room Air 10/13 2208 98.0 92 16 110/60 94 Intake & Output 10/14 1600 10/14 0800 10/14 0000 10/13 1600 10/13 0800 10/13 0000 Intake Total 244 311 6642 1200 650 Output Total Balance 734 073 4388 1200 650 Intake, IV 800 700 650 Intake, Oral 600 440 450 500 Number 0 Bowel Movements Patient 141 lb 115 lb 131 lb Weight Weight Bed scale Measurement Method Physical Exam: General: WD/WN male in NAD; alert and oriented x 3 HEENT: NC/AT, PERRL, EOMI Neck: no JVD, no carotid bruit Heart: RRR w/o murmur Lungs: clear bilaterally Abdomen: soft, NT, +ve bowel sounds Exztremities: no edema Assessment/Plan Assessment/Plan * This patient likely had dizziness and fatigue possibly due to her anemia. It is not clear if this anemia is related to decreased production in the setting of her renal insufficiency or to bleeding. Her reticulocyte count is in the normal range despite severe anemia which should be a stimulant to increased production. This patient may benefit from erythropoietin. * This patient appeared to have been dehydrated which may, in combination with severe anemia, have caused her to be lightheaded and have renal insufficiency. An obstructive process needs to be excluded as a cause of her renal insufficiency, however. If there is no obstruction then her dehydration may be due to the lethargy and inanition that is associated with a urinary tract infection. Consider a urology consult. * Blood pressure now appears well controlled. I would avoid any antihypertensive medications at this point in time and encourage good oral intake. * Will review her echocardiogram. Continue telemetry? Yes
--- NOTE | 2017-10-14 18:51 | ECHOCARDIOGRAM REPORT ---
ANDERS SALAZAR Age: 82 : 1935 Gender: F Exam Date: 10/13/2017 19:30 Exam Location: [place] Ht (in): 65 Wt (lb): 131 BSA: 1.65 BP: 89 / 42 Ordering Physician: Tremayne Hare MD Referring Physician: Efrain Gongora MD, PhD Technologist: Rama Gauthier [facility] Room Number: [id number] Indications: PRESYNCOPE/SYNCOPE Rhythm: Sinus Technical Quality: good FINDINGS Left Ventricle Normal left ventricular size, wall thickness and systolic function with no obvious regional wall motion abnormalities. Normal left ventricular diastolic filling pattern for age. The ejection fraction is visually estimated at 60%. Right Ventricle The right ventricle is normal in size and function. Right Atrium The right atrium is normal in size. Left Atrium The left atrium is normal in size. The interatrial septum is intact. Mitral Valve The mitral valve is normal in structure and function. There is moderate mitral regurgitation. Aortic Valve Structurally normal aortic valve without significant sclerosis or stenosis. There is no aortic regurgitation. Tricuspid Valve The tricuspid valve is normal in structure and function. There is mild tricuspid regurgitation. Pulmonary artery systolic pressure is normal. Pulmonic Valve Structurally normal pulmonic valve. There is trace pulmonic regurgitation. Pericardium Normal pericardium without effusion. No pleural effusion. Great Vessels Normal aortic root dimension. The aortic arch and great vessels are well seen and are normal. CONCLUSIONS 1. Normal EF of 60%. 2. Moderate mitral regurgitation. 3. Mild tricuspid regurgitation. 4. Trace pulmonic insufficiency. Efrain Gongora M.D. (Electronically Signed) Final Date: 14 October 2017 18:51 MEASUREMENTS (Male / Female) Normal Values 2D ECHO LV Diastolic Diameter PLAX 3.9 cm 4.2 - 5.9 / 3.9 - 5.3 cm LV Systolic Diameter PLAX 2.5 cm 2.1 - 4.0 cm LV Fractional Shortening PLAX 35.9 % 25 - 46 % LV Ejection Fraction 2D Teich 66.1 % IVS Diastolic Thickness 1.2 cm LVPW Diastolic Thickness 1.1 cm LV Relative Wall Thickness 0.6 RV Internal Dim ED PLAX 2.7 cm 1.9 - 3.8 cm LVOT Diameter 1.8 cm Aortic Root Diameter 3.2 cm LA Systolic Diameter LX 4.0 cm 3.0 - 4.0 / 2.7 - 3.8 cm LA Volume 37.0 cm 18 - 58 / 22 - 52 cm Ascending Aorta Diameter 2.9 cm DOPPLER AV Peak Velocity 108.0 cm/s AV Peak Gradient 4.7 mmHg AV Mean Velocity 78.2 cm/s AV Mean Gradient 3.0 mmHg AV Velocity Time Integral 22.5 cm LVOT Peak Velocity 80.2 cm/s LVOT Peak Gradient 2.6 mmHg LVOT Mean Velocity 55.9 cm/s LVOT Mean Gradient 1.0 mmHg LVOT Velocity Time Integral 18.9 cm LVOT Stroke Volume 48.1 cm AV Area Cont Eq vti 2.1 cm AV Area Cont Eq pk 1.9 cm MV Peak Velocity 145.0 cm/s MV Peak Gradient 8.4 mmHg MV Mean Velocity 84.6 cm/s MV Mean Gradient 3.0 mmHg Mitral E Point Velocity 107.0 cm/s Mitral A Point Velocity 85.0 cm/s Mitral E to A Ratio 1.3 MV PHT Velocity 151.0 cm/s MV Deceleration [place] 918.0 cm/s MV Pressure Half Time 49.3 ms MV Area PHT 4.5 cm MV Deceleration Time 151.0 ms TR Peak Velocity 262.0 cm/s TR Peak Gradient 27.5 mmHg Right Atrial Pressure 5.0 mmHg Pulmonary Artery Systolic Pressu 32.5 mmHg Right Ventricular Systolic Press 32.5 mmHg PV Peak Velocity 85.5 cm/s PV Peak Gradient 2.9 mmHg PV Mean Velocity 60.0 cm/s PV Mean Gradient 2.0 mmHg PV Velocity Time Integral 21.6 cm LV E' Lateral Velocity 7.2 cm/s Mitral E to LV E' Lateral Ratio 14.8 LV E' Septal Velocity 9.2 cm/s Mitral E to LV E' Septal Ratio 11.7
[2017-10-14 22:35] VITALS: BP 118/58
[2017-10-15 07:13] VITALS: BP 116/60
--- NOTE | 2017-10-15 08:22 | PN- Diabetes ---
Assessment/Plan Diabetes Assessment: Patient feels okay. She has had no further low blood sugars. She is currently on Levemir 6 units daily. We adjusted also her sliding scale NovoLog yesterday. Fingerstick blood sugars yesterday were 265 before lunch, and 171 before dinner, 104 at bedtime. Unfortunately the patient sugar mary lou to 288 this morning. Most likely this is due to the fact that Levemir is not a true 24 hour basal insulin. Plan: Suggest continue the present insulin regimen. The patient uses Toujeo at home which is a 224 hour basal insulin. Unfortunately do not have this available in the hospital. Subjective Subjective: Feels okay Review of Systems Constitutional: Denies: chills, fever. Cardiovascular: Denies: chest pain. Respiratory: Denies: cough, short of breath. Gastrointestinal: Denies: abdominal pain. Objective Last 24 Hrs of Vital Signs/I&O Vital Signs Date Time Temp Pulse Resp B/P B/P Pulse O2 O2 Flow FiO2 Mean Ox Delivery Rate 10/15 0713 97.8 78 18 116/60 96 Room Air 10/145 98.8 91 18 118/58 97 Room Air 10/14 1428 97.9 82 18 110/60 97 Room Air Intake & Output 10/15 1600 10/15 0800 10/15 0000 Intake Total 440 480 Output Total Balance 440 480 Intake, Oral 440 480 Patient 140 lb Weight Weight Bed scale Measurement Method Vital Signs Date Time Temp Pulse Resp B/P B/P Pulse O2 O2 Flow FiO2 Mean Ox Delivery Rate 10/15 0713 97.8 78 18 116/60 96 Room Air 10/145 98.8 91 18 118/58 97 Room Air 10/14 1428 97.9 82 18 110/60 97 Room Air Intake & Output 10/15 1600 10/15 0800 10/15 0000 Intake Total 440 480 Output Total Balance 440 480 Intake, Oral 440 480 Patient 140 lb Weight Weight Bed scale Measurement Method Physical Exam General Appearance: alert, awake Head: normal appearance Neck: normal inspection Respiratory: normal breath sounds Abdomen: normal bowel sounds Extremities: normal inspection Current Medications: Current Medications Sig/Tevin Start time Last Medication Dose Route Stop Time Status Admin Acetaminophen 650 MG Q6P PRN 10/11 1545 AC 10/13 PO 0404 Bisacodyl 5 MG ONE ONE 10/14 2144 DC 10/14 PO 06/21 2146 2152 Bisacodyl 5 MG DAILY PRN 10/13 1045 AC 10/14 PO 2152 Ceftazidime 1,000 MG Q12H 10/14 1800 CAN IV Ceftriaxone Sodium 1,000 MG Q24H 10/14 1800 AC 10/14 IV 1721 Epoetin Jermaine 5,000 UNIT ONCE ONE 10/14 1145 DC 10/14 SC 10/14 1146 1719 Escitalopram Oxalate 5 MG DAILY 10/12 0900 AC 10/14 PO 0830 Ferrous Sulfate 325 MG DAILY 10/14 2100 AC 10/14 PO 2138 Ferrous Sulfate 325 MG DAILY 10/13 1609 DC 10/13 PO 2124 Insulin Aspart 0 TIDAC/HS 10/12 1200 AC 10/14 SC 1721 Insulin Detemir 6 UNITS DAILY 10/15 0900 AC SC Insulin Detemir 1 UNITS ONCE ONE 10/14 0900 DC 10/14 SC 10/14 0901 1209 Insulin Detemir 5 UNITS DAILY 10/13 0900 DC 10/14 SC 0830 Melatonin 5 MG AT BEDTIME 10/15 2100 AC PO Melatonin 5 MG .STK-MED ONE 10/14 2143 DC PO 10/14 2144 Nystatin 1 MARLYS BID 10/13 0900 AC 10/14 TOP 2153 Omeprazole 40 MG DAILY AC 10/12 1644 AC 10/15 PO 0647 Findings Pertinent Lab/Emmanuel Results: Laboratory Tests 10/15 10/14 10/13 0610 0635 1718 Chemistry Sodium (137 - 145 mmol/L) Pending 141 140 Potassium (3.5 - 5.1 mmol/L) Pending 4.9 4.2 Chloride (98 - 107 mmol/L) Pending 113 H 113 H Carbon Dioxide (22 - 30 mmol/L) Pending 16 L 18 L Anion Gap (5 - 16) Pending 11 9 BUN (7 - 17 mg/dL) Pending 31 H 35 H Creatinine (0.5 - 1.0 mg/dL) Pending 2.1 H 2.1 H Estimated GFR (>60 ml/min) 23 L 23 L BUN/Creatinine Ratio (7 - 25 %) Pending 14.8 16.7 Hematology CBC w Diff Pending MAN DIFF ORDERED WBC (4.8 - 10.8 /CUMM) Pending 11.0 H RBC (4.20 - 5.40 /CUMM) Pending 3.19 L Hgb (12.0 - 16.0 G/DL) Pending 8.1 L Hct (37 - 47 %) Pending 25.6 L MCV (81.0 - 99.0 FL) Pending 80.1 L MCH (27.0 - 31.0 PG) Pending 25.3 L MCHC (33.0 - 37.0 G/DL) Pending 31.6 L RDW (11.5 - 14.5 %) Pending 18.7 H Plt Count (130 - 400 /CUMM) Pending 306 MPV (7.4 - 10.4 FL) Pending 9.8 Gran % (42.2 - 75.2 %) 80.7 H Lymphocytes % (20.5 - 51.1 %) 6.4 L Monocytes % (1.7 - 9.3 %) 8.8 Eosinophils % (0 - 5 %) 3.5 Basophils % (0.0 - 2.0 %) 0.6 Absolute Granulocytes (1.4 - 6.5 /CUMM) 8.9 H Segmented Neutrophils (42.2 - 75.2 %) 67 Band Neutrophils (0.0 - 5.0 %) 15 H Absolute Lymphocytes (1.2 - 3.4 /CUMM) 0.7 L Lymphocytes (20.5 - 51.1 %) 6 L Monocytes (1.7 - 9.3 %) 8 Absolute Monocytes (0.10 - 0.60 /CUMM) 1.0 H Eosinophils (0 - 5.0 %) 3 Absolute Eosinophils (0.0 - 0.7 /CUMM) 0.4 Basophils (0.0 - 2.0 %) 1 Absolute Basophils (0.0 - 0.2 /CUMM) 0.1 Platelet Estimate (ADEQUATE) VERIFIED BY SMEAR Poikilocytosis 1+ Anisocytosis 1+ Jean Cells 1+ 10/13 10/13 10/13 1715 1500 1340 Blood Gas Bicarbonate Actual (22 - 26 MEQ/L) 16 L Mixed VBG pH (7.31 - 7.41 PH) 7.34 Mixed VBG pCO2 (41 - 51 TORR) 30.5 L Mixed VBG O2 Saturation (35 - 45 TORR) 44.2 Carboxyhemoglobin (1.5 - 5.0 %) 0.1 L O2 Concentration % RA O2 Delivery Method RA Chemistry Sodium Cancelled Potassium Cancelled Chloride Cancelled Carbon Dioxide Cancelled Anion Gap Cancelled BUN Cancelled Creatinine Cancelled BUN/Creatinine Ratio Cancelled Miscellaneous Phlebotomy Draw Site R.AC Urines Ur Random Creatinine Cancelled Ur Random Sodium Cancelled Ur Random Potassium Cancelled Fraction Sodium Excret Cancelled
[2017-10-15 08:24] LABS: ABSOLUTE BASOPHIL COUNT 0.1 /CUMM (0.0-0.2); ABSOLUTE EOSINOPHIL COUNT 0.5 /CUMM (0.0-0.7); ABSOLUTE GRANULOCYTE CT 10.3 /CUMM (1.4-6.5); ABSOLUTE LYMPH COUNT 1.1 /CUMM (1.2-3.4); ABSOLUTE MONOCYTE COUNT 0.6 /CUMM (0.10-0.60); BASOPHIL % 0.4 % (0.0-2.0); EOSINOPHIL % 3.8 % (0-5); HEMATOCRIT 24.4 % (37-47); MEAN CORPUSCULAR HGB 25.8 PG (27.0-31.0); MEAN CORPUSCULAR HGB CONC 32.1 G/DL (33.0-37.0); MEAN CORPUSCULAR VOLUME 80.4 FL (81.0-99.0); MEAN PLATELET VOLUME 9.7 FL (7.4-10.4); PLATELET COUNT 381 /CUMM (130-400); RBC DISTRIBUTION WIDTH 19.3 % (11.5-14.5); RED BLOOD CELL CT 3.03 /CUMM (4.20-5.40); WHITE BLOOD CELL COUNT 12.5 /CUMM (4.8-10.8)
--- NOTE | 2017-10-15 08:30 | PN- Housestaff ---
Saulo KING,Josey 10/15/17 0830: Subjective Follow-up For: hypotension and hypoglycemia-improved Weakness, dizziness and near syncope UTI with history of MRSA severe anemia-improved Hyponatremia, hyperkalemia-improved Hypocalcemia Elevated alkaline phosphatase SHREE on CKD (most likely due to dehydration secondary to vomiting and diarrhea)- worsenig Chronic medical condition Tele-Events Since Last Visit: Normal sinus rhythm, 97, 0.06, 0.16 Subjective: Patient was seen and examined, and denies any complaints, vital signs stable, blood culture showed E. coli, white cell count trending up today, awaiting urology recommendation Review of Systems Constitutional: Reports: see HPI. Objective Last 24 Hrs of Vital Signs/I&O Vital Signs Date Time Temp Pulse Resp B/P B/P Pulse O2 O2 Flow FiO2 Mean Ox Delivery Rate 10/15 1425 98.1 75 18 112/66 98 Room Air 10/15 0713 97.8 78 18 116/60 96 Room Air 10/14 2235 98.8 91 18 118/58 97 Room Air Intake & Output 10/15 1600 10/15 0800 10/15 0000 Intake Total 440 480 Output Total Balance 440 480 Intake, Oral 440 480 Patient 140 lb Weight Weight Bed scale Measurement Method Physical Exam General Appearance: Alert, Oriented X3, Cooperative, No Acute Distress HEENT: Atraumatic, PERRLA, EOMI, Mucous Membr. moist/pink Cardiovascular: Normal S1, Normal S2 Lungs: Clear to Auscultation Abdomen: Normal Bowel Sounds, Soft, No Tenderness Neurological: Normal Speech, Sensation Intact, Cranial Nerves 3-12 NL Extremities: No Clubbing, No Cyanosis, No Edema Assessment/Plan Assessment: 82 years old female with past medical history of celiac disease,type 1 diabetes, recurrent UTI, chronic anemia, reactive thrombocytopenia, overactive bladder, urine incontinence, depression presented to the ED complaining of weakness and dizziness for 3 days, the patient is doing better today with a stable blood pressure, after increasing ceftaz dose to 1 g twice daily daily, her blood sugar is in the 200 today, her culture sensitivity are still pending Problem list: hypotension and hypoglycemiaimproved Weakness, dizziness and near syncope UTI severe anemia S/P 1 unit PRBCs-improved Hyponatremia, hyperkalemia-improved Hypocalcemia Elevated alkaline phosphatase SHREE on CKD (most likely due to dehydration secondary to vomiting and diarrhea)- slowly improving Chronic medical condition Plan: continue to monitor on telemetry floor Continuous telemetry monitoring DC Ceftazidime Continue ceftriaxone 1 g daily Blood and urine culture showed sensitive E. coli CT abdomen showed improved mild right-sided hydronephrosis, small bilateral pleural effusion Close monitoring of BEP especially potassium Insulin sliding scale, Continue Levemir 6 units daily Continue the current NovoLog sliding scale Continue a can of Glucerna and a cup of fruit to each meal Accu-Chek Unable to assess the output because the patient is incontinent and refuses Dove H&H stable after 1 unit of PRBCs, she is guaiac positive, will continue to follow CBCs Kidney function is slowly improving Continue home meds ID, urology, endocrinology recommendations appreciated Awaiting input from urology regarding hydronephrosis and if the patient needs any intervention while in the hospital I called urology service for the second time today and I personally spoke to Dr. Jenkins over the phone Iron studies showed iron deficiency anemia, was started on ferrous sulfate p.o. 1 dose of erythropoietin DVT prophylaxis with subcutaneous heparin Consistent carbohydrate diet Full code Problem List: 1. UTI (urinary tract infection) Pain Ratin Pain Location: N/A Pain Goal: Remain pain free Pain Plan: Pathway [employer] Labs & Rationales: CBC BEP Norma Kitchen 10/15/17 1232: Attending MD Review Statement Attending Statement Attending MD Statement: examined this patient, discuss w/resident/PA/CLINICAL SCIENCE LIAISON, agreed w/resident/PA/CLINICAL SCIENCE LIAISON, discussed with family, reviewed EMR data (avail), discussed with nursing, discussed with case mgmt, reviewed images, amended to note Attending Assessment/Plan: Patient with no new complaints. Her bp is 106/50. Her creatinine functon is 1.9 today. She had bowel movement today. She is receiving iv abx for her UTI in conusltation with ID. Urology consult Dr Jenkins pending though CT abd/pelvis showed improvement in her hydronephrosis. Constipation with relief. S/p erythropoeitin for anemia of kidney disease, c/w iron supplementation. She did receive blood transfusion during this hospital stay. Anticipate dc planning as per ID and if ok to PO abx pending C/S. Home discharge with services. Anticipate discharge soon.
[2017-10-15 09:51] LABS: GRANULOCYTE % 82.4 % (42.2-75.2)
--- NOTE | 2017-10-15 14:11 | PN- Infect Dx ---
Subjective Subjective: Afebrile without complaints Objective Last 24 Hrs of Vital Signs/I&O Vital Signs Date Time Temp Pulse Resp B/P B/P Pulse O2 O2 Flow FiO2 Mean Ox Delivery Rate 10/15 0713 97.8 78 18 116/60 96 Room Air 10/14 2235 98.8 91 18 118/58 97 Room Air 10/14 1428 97.9 82 18 110/60 97 Room Air Intake & Output 10/15 1600 10/15 0800 10/15 0000 Intake Total 440 480 Output Total Balance 440 480 Intake, Oral 440 480 Patient 140 lb Weight Weight Bed scale Measurement Method Physical Exam Other Physical Findings: She appears comfortable in no acute distress Lungs are clear Heart regular rhythm with no murmur Abdomen is soft, nontender with positive bowel sounds Back no CVA tenderness Extremities no cyanosis, clubbing or edema Results Last 24 Hours of Lab Results: Laboratory Tests 10/15 0610 Chemistry Sodium (137 - 145 mmol/L) 140 Potassium (3.5 - 5.1 mmol/L) 5.2 H Chloride (98 - 107 mmol/L) 113 H Carbon Dioxide (22 - 30 mmol/L) 15 L Anion Gap (5 - 16) 11 BUN (7 - 17 mg/dL) 32 H Creatinine (0.5 - 1.0 mg/dL) 1.9 H Estimated GFR (>60 ml/min) 25 L BUN/Creatinine Ratio (7 - 25 %) 16.8 Hematology CBC w Diff NO MAN DIFF REQ WBC (4.8 - 10.8 /CUMM) 12.5 H RBC (4.20 - 5.40 /CUMM) 3.03 L Hgb (12.0 - 16.0 G/DL) 7.8 L Hct (37 - 47 %) 24.4 L MCV (81.0 - 99.0 FL) 80.4 L MCH (27.0 - 31.0 PG) 25.8 L MCHC (33.0 - 37.0 G/DL) 32.1 L RDW (11.5 - 14.5 %) 19.3 H Plt Count (130 - 400 /CUMM) 381 MPV (7.4 - 10.4 FL) 9.7 Gran % (42.2 - 75.2 %) 82.4 H Lymphocytes % (20.5 - 51.1 %) 8.8 L Monocytes % (1.7 - 9.3 %) 4.6 Eosinophils % (0 - 5 %) 3.8 Basophils % (0.0 - 2.0 %) 0.4 Absolute Granulocytes (1.4 - 6.5 /CUMM) 10.3 H Absolute Lymphocytes (1.2 - 3.4 /CUMM) 1.1 L Absolute Monocytes (0.10 - 0.60 /CUMM) 0.6 Absolute Eosinophils (0.0 - 0.7 /CUMM) 0.5 Absolute Basophils (0.0 - 0.2 /CUMM) 0.1 Last 24 Hours of Emmanuel Results: Blood cultures October 11 1 bottle positive for E. coli resistant to Ampicillin and intermediate to Augmentin and Unasyn Urine culture October 11 greater than 100,000 colonies of E. coli resistant to Ampicillin and Unasyn and intermediate to Augmentin Assessment/Plan ID Impression: Stable, with resolution of her symptoms and with her temperatures remaining normal, now on Ceftriaxone, Day 4 of treatment for sepsis of urologic origin secondary to E. coli. Her white blood cell count, however, remains mildly elevated, suggesting ongoing infection, and, with a mild right hydronephrosis still noted on the CT scan, feel that Urology evaluation and possible intervention will be necessary. Her renal failure persists, possibly secondary to urinary retention, and catheterization may be necessary to rule this out. Have spoken with Dr. Jenkins, who will see her later today. Suggestion: 1. Await Urology evaluation 2. Bladder scan for postvoid residual and consider need for catheterization per Urology 3. Continue Ceftriaxone pending above
[2017-10-15 14:25] VITALS: BP 112/66
[2017-10-15] MEDS ORDERED: BISACODYL5 M1 PO (14:55)
[2017-10-15] MEDS ORDERED: OMEPRAZOLE20 M2 PO (14:55)
[2017-10-15] MEDS ORDERED: NYSTATIN15 G1 TOP (14:55)
[2017-10-15] MEDS ORDERED: FERROUS SULFAT325 M2 PO (14:55)
--- NOTE | 2017-10-15 15:09 | Patient Discharge Instructions ---
Discharge Instructions General Discharge Information You were seen/treated for: Urinary tract infection Severe anemia Diabetes mellitus Special Instructions: 1please follow-up with your PCP in 1 week discharge 2please follow-up with your urologist in 1 week of discharge 3please follow-up with your distance learning program coordinator in 1 week of discharge 4please follow-up with your cytopathologist in 1 week of discharge. YOU NEED TO MEASURE BLOOD SUGARS 4 TIMES A DAY (BEFORE MEALS AND AT BEDTIME) AND REPORT THEM TO DR. CLARK'S OFFICE WITHIN 2-3 DAYS AFTER DISCHARGE. 5please come back to the ED if you experience weakness or urinary symptoms Diet Continue normal diet: No Recommended Diet: Diabetic Acute Coronary Syndrome Inclusion Criteria At DC or during hospital stay patient has or had the following: ACS DIAGNOSIS No Discharge Core Measures Meds if any: Prescribed or Continued at Discharge Meds if any: NOT Prescribed or Continued at Discharge Congestive Heart Failure Inclusion Criteria At DC or during hospital stay patient has or had the following: CHF DIAGNOSIS No Discharge Core Measures Meds if any: Prescribed or Continued at Discharge Meds if any: NOT Prescribed or Continued at Discharge Cerebrovascular accident Inclusion Criteria At DC or during hospital stay patient has or had the following: CVA/TIA Diagnosis No Discharge Core Measures Meds if any: Prescribed or Continued at Discharge Meds if any: NOT Prescribed or Continued at Discharge Venous thromboembolism Inclusion Criteria VTE Diagnosis No VTE Type NONE VTE Confirmed by (Test) NONE Discharge Core Measures - Per Current guidelines, there needs to be overlap - treatment for the first 5 days of Warfarin therapy. - If discharged on Warfarin prior to 5 days of - overlap therapy, the patient will need to be - assessed for post discharge needs including - *Post discharge parental anticoagulation - *Warfarin and/or parental anticoagulation education - *Follow up date to check INR post discharge At least 5 days overlap therapy as Inpatient No Meds if any: Prescribed or Continued at Discharge Note: Overlap Therapy is Warfarin and Anticoagulant Meds if any: NOT Prescribed or Continued at Discharge
--- NOTE | 2017-10-15 15:10 | Discharge Summary ---
Visit Information Visit Dates Admission Date: 10/11/17 Discharge Date: 10/17/17 Hospital Course Course Attending Physician: Norma Kitchen MD [facility]: 82 years old female with past medical history of celiac disease, diabetes, recurrent UTI, chronic anemia, reactive thrombocytopenia, overactive bladder, urine incontinence, depression presented to the ED complaining of weakness and dizziness for 3 days, it was associated with nausea, vomiting few times and loose stool. Vital signs on admission: Temperature 97.9, pulse 85, blood pressure 108/54, 99 on room air Labs on admission: WBC 19.1, hemoglobin 8.8, sodium 132, potassium 5.8, BUN 56, creatinine 2.7, glucose 362, calcium 8.3, chest x-ray mild chronic changes, urinalysis shows large leukocyte esterase She was admitted to telemetry for treatment of the following conditions Weakness, dizziness and near syncope most likely was due to UTI UTI : Urine culture showed sensitive E. coli, the patient was initially treated with ceftazidime which was switched to ceftriaxone and finally the patient was discharged on ciprofloxacin To complete a 14 day course of antibiotics the patient's blood pressure was found to be running low and she required large amount of IV fluid resuscitation during her hospital stay, follow-up abdominal CT showed mild hydronephrosis which was not changed from before, her urologist was consulted and she did not recommend any surgical intervention, she recommended outpatient follow-up Electrolyte imbalance including Hyponatremia, hyperkalemia, hypocalcemia- resolved with most likely was due to poor oral intake Diabetes mellitus: Initially her blood sugar was running low and her insulin has to be adjusted multiple times. Patient was monitored with frequent fingerstick glucose, was treated with insulin sliding scale and Levemir 8 units daily, she was discharged on the same insulin regimen was advised to follow up with Dr. thompson as outpatient Elevated alkaline phosphatase AK I on CKD (most likely due to dehydration secondary to vomiting and diarrhea) resolved with IV fluids Chronic medical condition was kept on her home medications Consistent carbohydrate diet Full code DVT prophylaxis with subcutaneous heparin Allergies: Coded Allergies: sulfamethoxazole (From Bactrim) (Mild, BACTRIM DS - FLUSHED FACE 08/26/15) trimethoprim (From Bactrim) (Mild, BACTRIM DS - FLUSHED FACE 08/26/15) Disposition Summary Disposition Principal Diagnosis: UTI Additional Diagnosis: Type 1 diabetes mellitus Discharge Disposition: home health services Discharge Instructions General Discharge Information Code Status: Full Code Patient's Diet: Consistent carbohydrate Patient's Activity: As tolerated Follow-Up Instructions/Appts: 1please follow-up with your PCP in 1 week discharge 2please follow-up with your urologist in 1 week of discharge 3please follow-up with your journeyman level acoustic analyst in 1 week of discharge 4please follow-up with your production internship in 1 week of discharge. YOU NEED TO MEASURE BLOOD SUGARS 4 TIMES A DAY (BEFORE MEALS AND AT BEDTIME) AND REPORT THEM TO DR. THOMPSON'S OFFICE WITHIN 2-3 DAYS AFTER DISCHARGE. Medications at Discharge Discharge Medications: Stop taking the following medications: Insulin Aspart (Novolog) 100 UNIT/ML VIAL Inject into fatty tissue BEFORE MEALS AND AT BEDTIME Qty = 4 Continue taking these medications: Escitalopram Oxalate (Escitalopram Oxalate) 5 MG TABLET 1 Tablet ORAL DAILY Qty = 30 Comments: Last Taken:10/17/17 Time:0809 Start taking the following new medications: Ciprofloxacin HCl (Cipro) 500 MG TABLET 1 Tablet ORAL TWICE DAILY Qty = 16 No Refills Comments: Last Taken:10/17/17 Time:0809 Ferrous Sulfate (Ferrous Sulfate) 325 MG (65 MG IRON) TABLET. 325 Milligram ORAL DAILY Qty = 30 No Refills Instructions: . Comments: Last Taken:10/17/17 Time:0809 Bisacodyl (Bisacodyl) 5 MG TABLET. 5 Milligram ORAL DAILY as needed for CONSTIPATION Qty = 30 No Refills Instructions: . Comments: NOT GIVEN IN HOSPITAL Omeprazole (Omeprazole) 20 MG CAPSULE. 40 Milligram ORAL DAILY BEFORE BREAKFAST Qty = 30 No Refills Instructions: . Comments: Last Taken:10/17/17 Time:05 Insulin Aspart (Novolog) 100 UNIT/ML VIAL 0 Units Inject into fatty tissue BEFORE MEALS AND AT BEDTIME Qty = 4 No Refills Instructions: less than 100 mg/dl no coverage. 100-150 give 2 units 151-200 give 2 units 201-250 give 3 units 251-300 give 4 units 301-350 give 4 units 351-400 give 4 units more than 400 give 5 units Nystatin (Nystatin) 100,000 UNIT/GRAM CREAM..G. 1 Application On the skin TWICE DAILY Qty = 60 No Refills Instructions: . Comments: Last Taken:10/17/17 Time:0809 The following medications have been changed: Old: Insulin Glargine,Hum.rec.anlog (Toujeo Solostar) 300 UNIT/ML (1.5 ML) INSULN.PEN 6 Units Inject into fatty tissue Every Morning Qty = 90 New: Insulin Glargine,Hum.rec.anlog (Toujeo Solostar) 300 UNIT/ML (1.5 ML) INSULN.PEN 8 Units Inject into fatty tissue Every Morning Qty = 90 Comments: Last Taken:11/25/15 Time:0830 AM Copies To: Lisa Poe DO Attending Review Statement Documenting Attending: Norma Kitchen MD
--- NOTE | 2017-10-15 16:27 | PN- Cardiology ---
Subjective Subjective: * No complaints. * creatinine 1.9 with some persistent hydronephrosis. * Normal EF of 60% with moderate MR Objective Vital Signs and I&Os Vital Signs Date Time Temp Pulse Resp B/P B/P Pulse O2 O2 Flow FiO2 Mean Ox Delivery Rate 10/15 1425 98.1 75 18 112/66 98 Room Air 10/15 0713 97.8 78 18 116/60 96 Room Air 10/14 2235 98.8 91 18 118/58 97 Room Air Intake & Output 10/15 1600 10/15 0800 10/15 0000 10/14 1600 10/14 0800 10/14 0000 Intake Total 680 440 480 980 659 7662 Output Total Balance 680 440 480 056 570 0992 Intake, IV 800 Intake, Oral 680 440 480 600 440 450 Patient 140 lb 141 lb Weight Weight Bed scale Bed scale Measurement Method Physical Exam: General: WD/WN male in NAD; alert and oriented x 3 HEENT: NC/AT, PERRL, EOMI Neck: no JVD, no carotid bruit Heart: RRR w/o murmur Lungs: clear bilaterally Abdomen: soft, NT, +ve bowel sounds Exztremities: no edema Assessment/Plan Assessment/Plan * This patient likely had dizziness and fatigue possibly due to her anemia. It is not clear if this anemia is related to decreased production in the setting of her renal insufficiency or to bleeding. Her reticulocyte count is in the normal range despite severe anemia which should be a stimulant to increased production. This patient may benefit from erythropoietin. * This patient appeared to have been dehydrated which may, in combination with severe anemia, have caused her to be lightheaded and have renal insufficiency. An obstructive process needs to be excluded as a cause of her renal insufficiency, however. If there is no obstruction then her dehydration may be due to the lethargy and inanition that is associated with a urinary tract infection. Consider a urology consult. * Blood pressure now appears well controlled. I would avoid any antihypertensive medications at this point in time and encourage good oral intake. Continue telemetry? No
--- NOTE | 2017-10-15 16:48 | Cons- Urology ---
General Information and HPI Consulting Request Date of Consult: 10/15/17 Requested By: Norma Kitchen MD Reason for Consult: right hydronephrosis, UTI sepsis Source of Information: patient, old records Exam Limitations: memory issues History of Present Illness: This an 82-year-old female well known to me since last year due to a history of recurrent UTIs, urinary incontinence due to urgency, and fecal soilage. She has had recurrent UTIs for about 5 years with periodic episodes of sepsis. Her last episode was in March. At her last visit in my office, her perineum was severely excoriated and erythematous. She is on daily Estrace cream to her urethra for prevention as well as methenamine and better care of her perineum with triple paste. However she has memory issues and we also discuss the same issues at each visit. She wears Depends and admits that she is often sitting in a wet Depends throughout the day and sometimes with fecal soilage. She also has a history of right hydronephrosis that was first seen in August 2015. She has no history of stricture or kidney stones and hydronephrosis seems to wax and wane throughout the last 3 years. She denies any right flank pain or flank pain of any kind and no abdominal pain. She does admit that she has been constipated for the last 4 days and finally passed a bowel movement today. She states she feels a lot better. She has never had issues with emptying her bladder. She has had no recurrence of her prolapse for which she has had a vaginal hysterectomy and cystocele repair in the past. Allergies/Medications Allergies: Coded Allergies: sulfamethoxazole (From Bactrim) (Mild, BACTRIM DS - FLUSHED FACE 08/26/15) trimethoprim (From Bactrim) (Mild, BACTRIM DS - FLUSHED FACE 08/26/15) Home Med List: Bisacodyl 5 MG TABLET. 5 MG PO DAILY PRN CONSTIPATION Escitalopram Oxalate 5 MG TABLET 1 TAB PO DAILY DEPRESSION (Reported) Ferrous Sulfate 325 MG (65 MG IRON) TABLET.DR 325 MG PO DAILY ANEMIA Insulin Aspart (Novolog) 100 UNIT/ML VIAL 0 UNITS SC TIDAC/HS diabetes mellitus . Insulin Glargine,Hum.rec.anlog (Toujeo Solostar) 300 UNIT/ML (1.5 ML) INSULN.PEN 11 UNITS SC QPM DIABETES (Reported) Nystatin 100,000 UNIT/GRAM CREAM..G. 1 MARLYS TOP BID RASH Omeprazole 20 MG CAPSULE.DR 40 MG PO DAILY AC GASTRITIS Current Medications: Current Medications Sig/Tevin Start time Last Medication Dose Route Stop Time Status Admin Acetaminophen 650 MG Q6P PRN 10/11 1545 AC 10/13 PO 0404 Bisacodyl 5 MG ONE ONE 10/14 2145 DC 10/14 PO 10/14 2146 2152 Bisacodyl 5 MG DAILY PRN 10/13 1045 AC 10/14 PO 2152 Ceftriaxone Sodium 1,000 MG Q24H 10/14 1800 AC 10/14 IV 1721 Escitalopram Oxalate 5 MG DAILY 10/12 0900 AC 10/15 PO 0836 Ferrous Sulfate 325 MG DAILY 10/14 2100 AC 10/15 PO 0836 Insulin Aspart 0 TIDAC/HS 10/12 1200 AC 10/15 SC 1203 Insulin Detemir 6 UNITS DAILY 10/15 0900 AC 10/15 SC 0822 Melatonin 5 MG AT BEDTIME 10/15 2100 AC PO Melatonin 5 MG .STK-MED ONE 10/14 214 DC PO 10/14 2144 Nystatin 1 MARLYS BID 10/13 0900 AC 10/15 TOP 0836 Omeprazole 40 MG DAILY AC 10/12 1644 AC 10/15 PO 0647 Sodium Polystyrene 60 ML ONCE ONE 10/15 0900 DC 10/15 Sulfonate PO 10/15 0901 1051 Zinc Oxide 1 MARLYS BID 10/15 1321 AC 10/15 TOP 1521 Past History Medical History Blood Transfusion Hx: Yes Neurological: NONE (memory issues) EENT: NONE Cardiovascular: NONE Respiratory: NONE Gastrointestinal: CELIAC DISEASE Hepatic: NONE Renal: UTI'S Musculoskeletal: R HIP FX Psychiatric: NONE Endocrine: IDDM Blood Disorders: anemia Cancer(s): NONE ESCROW ASSISTANT/Reproductive: NONE (vag hyst for prolapse) Surgical History Pertinent Surgical History: hysterectomy, status post right hip ORIF 2 years prior to admission s/p right foot surgery Family History Relations & Conditions If Any: MOTHER (Diabetes). SISTER (diabetes). DAUGHTER (Diabetes). Psychosocial History Where Do You Live? Home Who Do You Live With? self Services at Home: Home Health Aide Primary Language: Luxembourgish Smoking Status: Former Smoker ETOH Use: denies use Illicit Drug Use: denies illicit drug use Living Will? yes Power of Coal Carrier/HCP? yes Name of POA/HCP: Rolan Rich Functional Ability ADLs Independent: dressing, bathing. Needs Assist: eating, toileting. Ambulation: walker IADLs Independent: finances, telephone. Needs Assist: shopping, housework, food prep, transportation, medication admin. Employment History Employment: Retired Retired? yes Review of Systems Review of Systems Constitutional: Reports: no symptoms. EENTM: Reports: no symptoms. Cardiovascular: Reports: no symptoms. Respiratory: Reports: no symptoms. GI: Reports: constipation. Genitourinary: Reports: frequency, urgency (incontinence). Musculoskeletal: Reports: no symptoms. Skin: Reports: no symptoms, rash. Neurological/Psychological: Reports: no symptoms. Hematologic/Endocrine: Reports: no symptoms. Exam & Diagnostic Data Vital Signs and I&O Vital Signs Date Time Temp Pulse Resp B/P B/P Pulse O2 O2 Flow FiO2 Mean Ox Delivery Rate 10/15 1425 98.1 75 18 112/66 98 Room Air 10/15 0713 97.8 78 18 116/60 96 Room Air 10/14 2235 98.8 91 18 118/58 97 Room Air Intake & Output 10/15 1600 10/15 0800 10/15 0000 10/14 1600 10/14 0800 10/14 0000 Intake Total 680 440 480 526 585 0982 Output Total Balance 680 440 480 356 241 3271 Intake, IV 800 Intake, Oral 680 440 480 600 440 450 Patient 63.503 kg 63.985 kg Weight Weight Bed scale Bed scale Measurement Method Physical Exam General Appearance: well developed/nourished, no apparent distress, alert, awake , comfortable Head: atraumatic, normal appearance Eyes: Bilateral: normal appearance. Ears, Nose, Throat: normal ENT inspection Neck: normal inspection Respiratory: no respiratory distress Gastrointestinal: soft, non-tender Rectal: deferred Back: normal inspection Extremities: no edema Neurologic/Psych: awake, alert, oriented x 3 Cranial Nerves: normal hearing, normal speech Skin: intact, normal color, warm/dry Reproductive: Normal female genitalia (refused exam) Last 24 Hours of Labs: Laboratory Tests 10/15 0610 Chemistry Sodium (137 - 145 mmol/L) 140 Potassium (3.5 - 5.1 mmol/L) 5.2 H Chloride (98 - 107 mmol/L) 113 H Carbon Dioxide (22 - 30 mmol/L) 15 L Anion Gap (5 - 16) 11 BUN (7 - 17 mg/dL) 32 H Creatinine (0.5 - 1.0 mg/dL) 1.9 H Estimated GFR (>60 ml/min) 25 L BUN/Creatinine Ratio (7 - 25 %) 16.8 Hematology CBC w Diff NO MAN DIFF REQ WBC (4.8 - 10.8 /CUMM) 12.5 H RBC (4.20 - 5.40 /CUMM) 3.03 L Hgb (12.0 - 16.0 G/DL) 7.8 L Hct (37 - 47 %) 24.4 L MCV (81.0 - 99.0 FL) 80.4 L MCH (27.0 - 31.0 PG) 25.8 L MCHC (33.0 - 37.0 G/DL) 32.1 L RDW (11.5 - 14.5 %) 19.3 H Plt Count (130 - 400 /CUMM) 381 MPV (7.4 - 10.4 FL) 9.7 Gran % (42.2 - 75.2 %) 82.4 H Lymphocytes % (20.5 - 51.1 %) 8.8 L Monocytes % (1.7 - 9.3 %) 4.6 Eosinophils % (0 - 5 %) 3.8 Basophils % (0.0 - 2.0 %) 0.4 Absolute Granulocytes (1.4 - 6.5 /CUMM) 10.3 H Absolute Lymphocytes (1.2 - 3.4 /CUMM) 1.1 L Absolute Monocytes (0.10 - 0.60 /CUMM) 0.6 Absolute Eosinophils (0.0 - 0.7 /CUMM) 0.5 Absolute Basophils (0.0 - 0.2 /CUMM) 0.1 Imaging Results: CT of abd.pelvis - Improved now mild right-sided hydronephrosis. No radiopaque calculi. - Small bilateral pleural effusions. - Low-attenuation within the cardiac chambers and aorta in keeping with the clinical history of anemia. - There is moderate volume intracolonic stool. No bowel obstruction. Similar haziness of the mesenteric fat limits assessment for any acute inflammatory processes of bowel. - Stable appearing chronic compression fractures at the T12, L1, L2, and L3 levels. 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 Assessment/Plan Assessment/Plan This is an 82 female with Celiac disease and DM with a hx of recurrent UTIs, waxing and waning right hydronephrosis (unclear etiology), urinary incontinence and fecal soilage. She has multiple UTIs in the last 5yrs and periodically is admitted for sepsis. She uses preventative measures eg Estrace cream, methenamine and OAB meds for her urge incontinence but she may need to be started on low dose ppx abx possibly. She has a hard time keeping her perineal region clean and dry due to the fecal soilage and the UUI. No intervention for her mild hydronephrosis is warranted at this time as the patient has no pain and it is chronic in nature. Unclear what her elevated potassium and Cr stem from but it may be nephrogenic. Consider nephrology consult. She will followup with me in the office closely after her discharge. Consult Acknowledgment - Thank you for your consult request.
[2017-10-15 22:25] VITALS: BP 88/50
[2017-10-16 06:54] VITALS: BP 100/60
[2017-10-16 07:46] LABS: ABSOLUTE BASOPHIL COUNT 0 /CUMM (0.0-0.2); ABSOLUTE EOSINOPHIL COUNT 0.4 /CUMM (0.0-0.7); ABSOLUTE LYMPH COUNT 0.9 /CUMM (1.2-3.4); ABSOLUTE MONOCYTE COUNT 0.5 /CUMM (0.10-0.60); BASOPHIL % 0.4 % (0.0-2.0); EOSINOPHIL % 4.4 % (0-5); GRANULOCYTE % 79.7 % (42.2-75.2); HEMATOCRIT 27.2 % (37-47); MEAN CORPUSCULAR HGB 25.7 PG (27.0-31.0); MEAN CORPUSCULAR HGB CONC 32.3 G/DL (33.0-37.0); MEAN CORPUSCULAR VOLUME 79.5 FL (81.0-99.0); MEAN PLATELET VOLUME 9.1 FL (7.4-10.4); PLATELET COUNT 380 /CUMM (130-400); RBC DISTRIBUTION WIDTH 19.3 % (11.5-14.5); RED BLOOD CELL CT 3.42 /CUMM (4.20-5.40); WHITE BLOOD CELL COUNT 8.8 /CUMM (4.8-10.8)
--- NOTE | 2017-10-16 08:54 | PN- Diabetes ---
Assessment/Plan Diabetes Assessment: Patient feels okay. She wants to go home. The patient sugars yesterday were 288 before breakfast, 372 before lunch, 202 before dinner, and 134 bedtime. This morning her fingerstick sugar was 281. Plan: Suggest continue the present insulin. If the patient goes home today she uses Toujeo. She usually takes her Toujeo at night. I have asked her to take 6 units of Toujeo in the morning rather than at night. She should be discharged on the present sliding scale NovoLog as well. She can check her sugars 4 times a day and report them to the office if her insulin needs adjustment. Subjective Subjective: Feels okay Review of Systems Constitutional: Denies: chills, fever. Cardiovascular: Denies: chest pain. Respiratory: Denies: cough, short of breath. Objective Last 24 Hrs of Vital Signs/I&O Vital Signs Date Time Temp Pulse Resp B/P B/P Pulse O2 O2 Flow FiO2 Mean Ox Delivery Rate 10/16 0654 97.6 86 18 100/60 96 Room Air 10/15 2225 98.1 88 18 88/50 94 10/15 1425 98.1 75 18 112/66 98 Room Air Intake & Output 10/16 1600 10/16 0800 10/16 0000 Intake Total 0 300 Output Total Balance 0 300 Intake, Oral 0 300 Number 1 Bowel Movements Patient 133 lb Weight Vital Signs Date Time Temp Pulse Resp B/P B/P Pulse O2 O2 Flow FiO2 Mean Ox Delivery Rate 10/16 0654 97.6 86 18 100/60 96 Room Air 10/15 2225 98.1 88 18 88/50 94 10/15 1425 98.1 75 18 112/66 98 Room Air Intake & Output 10/16 1600 10/16 0800 10/16 0000 Intake Total 0 300 Output Total Balance 0 300 Intake, Oral 0 300 Number 1 Bowel Movements Patient 133 lb Weight Physical Exam General Appearance: alert, awake, comfortable Neck: normal inspection Respiratory: normal breath sounds Cardiovascular: regular rate/rhythm Abdomen: normal bowel sounds Current Medications: Current Medications Sig/Tevin Start time Last Medication Dose Route Stop Time Status Admin Acetaminophen 650 MG Q6P PRN 10/11 1545 AC 10/13 PO 0404 Bisacodyl 5 MG DAILY PRN 10/13 1045 AC 10/14 PO 2152 Ceftriaxone Sodium 1,000 MG Q24H 10/14 1800 AC 10/15 IV 1641 Escitalopram Oxalate 5 MG DAILY 10/12 0900 AC 10/16 PO 0813 Ferrous Sulfate 325 MG DAILY 10/14 2100 AC 10/16 PO 0813 Insulin Aspart 0 TIDAC/HS 10/12 1200 AC 10/16 SC 0813 Insulin Detemir 6 UNITS DAILY 10/15 0900 AC 10/16 SC 0813 Melatonin 5 MG AT BEDTIME 10/15 2100 AC 10/15 PO 2112 Nystatin 1 MARLYS BID 10/13 0900 AC 10/16 TOP 0814 Omeprazole 40 MG DAILY AC 10/12 1644 AC 10/16 PO 0643 Sodium Polystyrene 60 ML ONCE ONE 10/15 0900 DC 10/15 Sulfonate PO 10/15 0901 1051 Zinc Oxide 1 MARLYS BID 10/15 1321 AC 10/16 TOP 0814 Findings Pertinent Lab/Emmanuel Results: Laboratory Tests 10/16 10/15 0640 0610 Chemistry Sodium (137 - 145 mmol/L) 138 140 Potassium (3.5 - 5.1 mmol/L) 4.6 5.2 H Chloride (98 - 107 mmol/L) 109 H 113 H Carbon Dioxide (22 - 30 mmol/L) 18 L 15 L Anion Gap (5 - 16) 11 11 BUN (7 - 17 mg/dL) 26 H 32 H Creatinine (0.5 - 1.0 mg/dL) 1.6 H 1.9 H Estimated GFR (>60 ml/min) 31 L 25 L BUN/Creatinine Ratio (7 - 25 %) 16.3 16.8 Hematology CBC w Diff NO MAN DIFF REQ NO MAN DIFF REQ WBC (4.8 - 10.8 /CUMM) 8.8 12.5 H RBC (4.20 - 5.40 /CUMM) 3.42 L 3.03 L Hgb (12.0 - 16.0 G/DL) 8.8 L 7.8 L Hct (37 - 47 %) 27.2 L 24.4 L MCV (81.0 - 99.0 FL) 79.5 L 80.4 L MCH (27.0 - 31.0 PG) 25.7 L 25.8 L MCHC (33.0 - 37.0 G/DL) 32.3 L 32.1 L RDW (11.5 - 14.5 %) 19.3 H 19.3 H Plt Count (130 - 400 /CUMM) 380 381 MPV (7.4 - 10.4 FL) 9.1 9.7 Gran % (42.2 - 75.2 %) 79.7 H 82.4 H Lymphocytes % (20.5 - 51.1 %) 10.2 L 8.8 L Monocytes % (1.7 - 9.3 %) 5.3 4.6 Eosinophils % (0 - 5 %) 4.4 3.8 Basophils % (0.0 - 2.0 %) 0.4 0.4 Absolute Granulocytes (1.4 - 6.5 /CUMM) 7.0 H 10.3 H Absolute Lymphocytes (1.2 - 3.4 /CUMM) 0.9 L 1.1 L Absolute Monocytes (0.10 - 0.60 /CUMM) 0.5 0.6 Absolute Eosinophils (0.0 - 0.7 /CUMM) 0.4 0.5 Absolute Basophils (0.0 - 0.2 /CUMM) 0 0.1
--- NOTE | 2017-10-16 09:49 | PN- Housestaff ---
See Addendum Subjective Follow-up For: hypotension and hypoglycemia-improved Weakness, dizziness and near syncope UTI with history of MRSA severe anemia-resolved Hyponatremia, hyperkalemia-improved Hypocalcemia Elevated alkaline phosphatase SHREE on CKD (most likely due to dehydration secondary to vomiting and diarrhea)- worsenig Chronic medical condition Tele-Events Since Last Visit: Off protective signal repairer Subjective: Patient was seen and examined this morning, vital signs are stable, no overnight events. Patient offered no complaints. I had discussion with her son regarding the discharge plan. Review of Systems Constitutional: Reports: see HPI. Objective Last 24 Hrs of Vital Signs/I&O Vital Signs Date Time Temp Pulse Resp B/P B/P Pulse O2 O2 Flow FiO2 Mean Ox Delivery Rate 10/16 0800 Room Air 10/16 0654 97.6 86 18 100/60 96 Room Air 10/15 2225 98.1 88 18 88/50 94 10/15 1425 98.1 75 18 112/66 98 Room Air Intake & Output 10/16 1600 10/16 0800 10/16 0000 Intake Total 0 300 Output Total Balance 0 300 Intake, Oral 0 300 Number 1 Bowel Movements Patient 60.328 kg Weight Physical Exam General Appearance: Alert, Oriented X3, Cooperative, No Acute Distress Skin: No Rashes, No Breakdown, No Significant Lesion Skin Temp/Moisture Exam: Warm/Dry HEENT: Atraumatic, PERRLA, EOMI, Mucous Membr. moist/pink Neck: Supple Cardiovascular: Regular Rate, Normal S1, Normal S2, No Murmurs Lungs: Clear to Auscultation, Normal Air Movement Abdomen: Normal Bowel Sounds, Soft, No Tenderness, No Hepatospenomegaly, No Masses Neurological: Normal Speech, Strength at 5/5 X4 Ext, Normal Tone, Sensation Intact, Cranial Nerves 3-12 NL, Reflexes 2+ Extremities: No Clubbing, No Cyanosis, No Edema, Normal Pulses, No Tenderness/ Swelling Assessment/Plan Assessment: 82 years old female with past medical history of celiac disease,type 1 diabetes, recurrent UTI, chronic anemia, reactive thrombocytopenia, overactive bladder, urine incontinence, depression presented to the ED complaining of weakness and dizziness for 3 days, the patient is doing better today with a stable blood pressure, after increasing ceftaz dose to 1 g twice daily daily, her blood sugar is in the 200 today, her culture sensitivity are still pending Problem list: hypotension and hypoglycemiaresolved Near syncope UTI severe anemia S/P 1 unit PRBCs-improved Hyponatremia, hyperkalemia-improved Hypocalcemia Elevated alkaline phosphatase SHREE on CKD (most likely due to dehydration secondary to vomiting and diarrhea)- slowly improving Plan: Off protective signal repairer Continuous telemetry monitoring Culture sensitivity is back, sensitive to Cipro and Bactrim. Patient is allergic to Bactrim. ID recommended Cipro Floxin 500 mg twice a day for total of 14 days antibiotic Leukocytosis improved back to normal Continue Levemir 6 units QAM, NovoLog sliding scale Endocrine consultation, thanks for recommendation Urology consultation, thanks for recommendation. No need for surgical intervention at this time Kidney function is slowly improving 1.6 today improved from 1.9 Iron studies showed iron deficiency anemia, was started on ferrous sulfate p.o. 1 dose of erythropoietin Possible discharge today DVT prophylaxis with subcutaneous heparin Consistent carbohydrate diet Full code Problem List: 1. Diabetes mellitus 2. Near syncope 3. Acute renal failure Pain Ratin Pain Location: n/a Pain Goal: Pain 4 or less Pain Plan: See medication Tomorrow's Labs & Rationales: BEP
[2017-10-16] MEDS ORDERED: TOUJEO SOL300 UNIT/1 SC (11:18)
[2017-10-16] MEDS ORDERED: NOVOLOG100 UNIT/2 SC (11:18)
[2017-10-16] MEDS ORDERED: CIPRO500 M1 PO ×2 (12:53→16:49)
[2017-10-16 14:42] VITALS: BP 139/69
[2017-10-16 22:15] VITALS: BP 116/70
[2017-10-17 06:51] VITALS: BP 118/56
--- NOTE | 2017-10-17 08:33 | PN- Housestaff ---
Saulo KING,Josey 10/17/17 0833: Subjective Follow-up For: hypotension and hypoglycemia-improved Weakness, dizziness and near syncope UTI with history of MRSA severe anemia-resolved Hyponatremia, hyperkalemia-improved Hypocalcemia Elevated alkaline phosphatase SHREE on CKD (most likely due to dehydration secondary to vomiting and diarrhea)- worsenig Chronic medical condition Tele-Events Since Last Visit: Off telemetry Review of Systems Constitutional: Reports: see HPI. Objective Last 24 Hrs of Vital Signs/I&O Vital Signs Date Time Temp Pulse Resp B/P B/P Pulse O2 O2 Flow FiO2 Mean Ox Delivery Rate 10/17 0651 97.9 75 16 118/56 95 Room Air 10/17 0000 Room Air 10/16 2215 98.5 82 16 116/70 93 10/16 1442 97.5 94 17 139/69 94 Room Air Intake & Output 10/17 1600 10/17 0800 10/17 0000 Intake Total 580 Output Total 220 Balance -220 580 Intake, Oral 580 Output, Urine 220 Patient 129 lb Weight Physical Exam General Appearance: Alert, Oriented X3, Cooperative, No Acute Distress HEENT: Atraumatic, PERRLA, EOMI, Mucous Membr. moist/pink Cardiovascular: Normal S1, Normal S2, No Murmurs Lungs: Clear to Auscultation Abdomen: Normal Bowel Sounds, Soft, No Tenderness Neurological: Normal Speech, Strength at 5/5 X4 Ext, Normal Tone, Sensation Intact, Cranial Nerves 3-12 NL Extremities: No Clubbing, No Cyanosis, No Edema Assessment/Plan Assessment: 82 years old female with past medical history of celiac disease,type 1 diabetes, recurrent UTI, chronic anemia, reactive thrombocytopenia, overactive bladder, urine incontinence, depression presented to the ED complaining of weakness and dizziness for 3 days, the patient is doing better today with a stable blood pressure, after increasing ceftaz dose to 1 g twice daily daily, her blood sugar is in the 200 today, her culture sensitivity are still pending Problem list: hypotension and hypoglycemiaresolved Near syncope UTI severe anemia S/P 1 unit PRBCs-improved Hyponatremia, hyperkalemia-improved Hypocalcemia Elevated alkaline phosphatase SHREE on CKD (most likely due to dehydration secondary to vomiting and diarrhea)- slowly improving Plan: Off rock drill operator Culture sensitivity is back, sensitive to Cipro and Bactrim. Patient is allergic to Bactrim. ID recommended Cipro Floxin 500 mg twice a day for total of 14 days antibiotic Leukocytosis improved back to normal Increase Levemir 8 units QAM, NovoLog sliding scale Endocrine consultation, thanks for recommendation Urology consultation, thanks for recommendation. No need for surgical intervention at this time Kidney function is slowly improving 1.6 today improved from 1.9 Iron studies showed iron deficiency anemia, was started on ferrous sulfate p.o. 1 dose of erythropoietin Possible discharge today DVT prophylaxis with subcutaneous heparin Consistent carbohydrate diet Full code Problem List: 1. Urinary tract infection Pain Ratin Pain Location: n/a Pain Goal: Remain pain free Pain Plan: PATHWAY Tomorrow's Labs & Rationales: N/A Cliff Caro MD 10/17/17 1551: Attending MD Review Statement Attending Statement Attending MD Statement: examined this patient, discuss w/resident/PA/GERIATRIC NURSE ASSISTANT, agreed w/resident/PA/GERIATRIC NURSE ASSISTANT, reviewed EMR data (avail) Attending Assessment/Plan: Doing well, stable for discharge home, see resident note for full details
--- NOTE | 2017-10-17 08:51 | PN- Infect Dx ---
Subjective Subjective: Afebrile without complaints Objective Last 24 Hrs of Vital Signs/I&O Vital Signs Date Time Temp Pulse Resp B/P B/P Pulse O2 O2 Flow FiO2 Mean Ox Delivery Rate 10/17 0651 97.9 75 16 118/56 95 Room Air 10/17 0000 Room Air 10/16 2215 98.5 82 16 116/70 93 10/16 1442 97.5 94 17 139/69 94 Room Air Intake & Output 10/17 1600 10/17 0800 10/17 0000 Intake Total 580 Output Total 220 Balance -220 580 Intake, Oral 580 Output, Urine 220 Patient 129 lb Weight Physical Exam Other Physical Findings: She appears comfortable in no acute distress Back no CVA tenderness Extremities no cyanosis, clubbing or edema Results Last 24 Hours of Lab Results: Laboratory Tests 10/16 0640 Chemistry Sodium (137 - 145 mmol/L) 138 Potassium (3.5 - 5.1 mmol/L) 4.6 Chloride (98 - 107 mmol/L) 109 H Carbon Dioxide (22 - 30 mmol/L) 18 L Anion Gap (5 - 16) 11 BUN (7 - 17 mg/dL) 26 H Creatinine (0.5 - 1.0 mg/dL) 1.6 H Estimated GFR (>60 ml/min) 31 L BUN/Creatinine Ratio (7 - 25 %) 16.3 Hematology CBC w Diff NO MAN DIFF REQ WBC (4.8 - 10.8 /CUMM) 8.8 RBC (4.20 - 5.40 /CUMM) 3.42 L Hgb (12.0 - 16.0 G/DL) 8.8 L Hct (37 - 47 %) 27.2 L MCV (81.0 - 99.0 FL) 79.5 L MCH (27.0 - 31.0 PG) 25.7 L MCHC (33.0 - 37.0 G/DL) 32.3 L RDW (11.5 - 14.5 %) 19.3 H Plt Count (130 - 400 /CUMM) 380 MPV (7.4 - 10.4 FL) 9.1 Gran % (42.2 - 75.2 %) 79.7 H Lymphocytes % (20.5 - 51.1 %) 10.2 L Monocytes % (1.7 - 9.3 %) 5.3 Eosinophils % (0 - 5 %) 4.4 Basophils % (0.0 - 2.0 %) 0.4 Absolute Granulocytes (1.4 - 6.5 /CUMM) 7.0 H Absolute Lymphocytes (1.2 - 3.4 /CUMM) 0.9 L Absolute Monocytes (0.10 - 0.60 /CUMM) 0.5 Absolute Eosinophils (0.0 - 0.7 /CUMM) 0.4 Absolute Basophils (0.0 - 0.2 /CUMM) 0 Last 24 Hours of Emmanuel Results: No recent cultures Assessment/Plan ID Impression: Stable, with her temperatures and white blood cell count both normal, now on Ciprofloxacin, Day 6 of treatment for sepsis of urologic origin secondary to E. coli. Her renal function appears to be improving as well. Urology evaluation noted and appreciated. Suggestion: 1. Continue Ciprofloxacin for 8 more days
--- NOTE | 2017-10-17 09:02 | PN- Diabetes ---
Assessment/Plan Diabetes Assessment: She feels okay. She is eating well. Her blood sugars have become more elevated. Fingerstick blood sugars yesterday were 281 before breakfast, 285 before lunch, 202 before dinner, and 282 at bedtime. This morning her fingerstick sugar was 255. Plan: The patient states she is going home today. I would increase her Levemir to 8 units daily and continue the present sliding scale NovoLog. When the patient goes home she will take Toujeo 8 units in the morning and use the NovoLog sliding scale that she is presently on. Subjective Subjective: Feels okay Review of Systems Constitutional: Denies: chills, fever. Cardiovascular: Denies: chest pain. Respiratory: Denies: short of breath. Gastrointestinal: Denies: abdominal pain, nausea, vomiting. Skin: Reports: no symptoms. Objective Last 24 Hrs of Vital Signs/I&O Vital Signs Date Time Temp Pulse Resp B/P B/P Pulse O2 O2 Flow FiO2 Mean Ox Delivery Rate 10/17 0651 97.9 75 16 118/56 95 Room Air 10/17 0000 Room Air 10/16 2214 98.5 82 16 116/70 93 10/16 1442 97.5 94 17 139/69 94 Room Air Intake & Output 10/17 1600 10/17 0800 10/17 0000 Intake Total 580 Output Total 220 Balance -220 580 Intake, Oral 580 Output, Urine 220 Patient 129 lb Weight Vital Signs Date Time Temp Pulse Resp B/P B/P Pulse O2 O2 Flow FiO2 Mean Ox Delivery Rate 10/17 0651 97.9 75 16 118/56 95 Room Air 10/17 0000 Room Air 10/165 98.5 82 16 116/70 93 10/16 1442 97.5 94 17 139/69 94 Room Air Intake & Output 10/17 1600 10/17 0800 10/17 0000 Intake Total 580 Output Total 220 Balance -220 580 Intake, Oral 580 Output, Urine 220 Patient 129 lb Weight Physical Exam General Appearance: alert, awake, comfortable Head: normal appearance Neck: normal inspection Respiratory: normal breath sounds Cardiovascular: regular rate/rhythm Abdomen: normal bowel sounds Extremities: normal inspection Current Medications: Current Medications Sig/Tevin Start time Last Medication Dose Route Stop Time Status Admin Acetaminophen 650 MG Q6P PRN 10/11 1545 AC 10/13 PO 0404 Bisacodyl 5 MG DAILY PRN 10/13 1045 AC 10/14 PO 2152 Ceftriaxone Sodium 1,000 MG Q24H 10/14 1800 DC 10/15 IV 1641 Ciprofloxacin 500 MG BID 10/16 1400 AC 10/17 PO 10/20 1359 0809 Escitalopram Oxalate 5 MG DAILY 10/12 0900 AC 10/17 PO 0809 Ferrous Sulfate 325 MG DAILY 10/14 2100 AC 10/17 PO 0809 Insulin Aspart 0 TIDAC/HS 10/12 1200 AC 10/17 SC 0800 Insulin Detemir 6 UNITS DAILY 10/15 0900 AC 10/17 SC 0800 Melatonin 5 MG AT BEDTIME 10/15 2100 AC 10/16 PO 2054 Nystatin 1 MARLYS BID 10/13 0900 AC 10/17 TOP 0813 Omeprazole 40 MG DAILY AC 10/12 1644 AC 10/17 PO 0527 Zinc Oxide 1 MARLYS BID 10/15 1321 AC 10/17 TOP 0813 Findings Pertinent Lab/Emmanuel Results: Laboratory Tests 10/16 0640 Chemistry Sodium (137 - 145 mmol/L) 138 Potassium (3.5 - 5.1 mmol/L) 4.6 Chloride (98 - 107 mmol/L) 109 H Carbon Dioxide (22 - 30 mmol/L) 18 L Anion Gap (5 - 16) 11 BUN (7 - 17 mg/dL) 26 H Creatinine (0.5 - 1.0 mg/dL) 1.6 H Estimated GFR (>60 ml/min) 31 L BUN/Creatinine Ratio (7 - 25 %) 16.3 Hematology CBC w Diff NO MAN DIFF REQ WBC (4.8 - 10.8 /CUMM) 8.8 RBC (4.20 - 5.40 /CUMM) 3.42 L Hgb (12.0 - 16.0 G/DL) 8.8 L Hct (37 - 47 %) 27.2 L MCV (81.0 - 99.0 FL) 79.5 L MCH (27.0 - 31.0 PG) 25.7 L MCHC (33.0 - 37.0 G/DL) 32.3 L RDW (11.5 - 14.5 %) 19.3 H Plt Count (130 - 400 /CUMM) 380 MPV (7.4 - 10.4 FL) 9.1 Gran % (42.2 - 75.2 %) 79.7 H Lymphocytes % (20.5 - 51.1 %) 10.2 L Monocytes % (1.7 - 9.3 %) 5.3 Eosinophils % (0 - 5 %) 4.4 Basophils % (0.0 - 2.0 %) 0.4 Absolute Granulocytes (1.4 - 6.5 /CUMM) 7.0 H Absolute Lymphocytes (1.2 - 3.4 /CUMM) 0.9 L Absolute Monocytes (0.10 - 0.60 /CUMM) 0.5 Absolute Eosinophils (0.0 - 0.7 /CUMM) 0.4 Absolute Basophils (0.0 - 0.2 /CUMM) 0
[2017-10-17] MEDS ORDERED: TOUJEO SOL300 UNIT/1 SC (12:09)
[2017-10-17] MEDS ORDERED: NYSTATIN15 G1 TOP (12:09)
[2017-10-17] MEDS ORDERED: FERROUS SULFAT325 M2 PO (12:09)
[2017-10-17] MEDS ORDERED: OMEPRAZOLE20 M2 PO (12:09)
[2017-10-17] MEDS ORDERED: BISACODYL5 M1 PO (12:09)
[2017-10-17] MEDS ORDERED: NOVOLOG100 UNIT/2 SC (12:09)
[2017-10-17] MEDS ORDERED: CIPRO500 M1 PO (12:09)
== END 2017-10-17 14:33 | disposition home health service (06) | DRG 683 ==
LOC: ERH 12:39 → 1NO 14:26 → ERHI 14:26 → ENRESERV 15:50 → ENTRNSPT 17:25 → EDTRNSPTSTS 17:42 → EDTRNSPT 17:42 → 1NO 17:44 → CMPTRNSPT 18:03 → 1NO 10-13 08:23 → ENPENDDIS 10-17 12:45 → ENTRNSPT 10-17 13:31 → EDTRNSPT 10-17 14:28 → EDTRNSPTSTS 10-17 14:28 → CMPTRNSPT 10-17 14:29 → 1NO 10-17 14:33
PROVIDERS: Emergency Medicine; Student in an Organized Health Care Education/Training Program
PROC: 30233N1 Transfusion of Nonautologous Red Blood Cells into Peripheral Vein, Percutaneous Approach (ICD-10-PCS; principal; 2017-10-12)
DX: N17.9 Acute kidney failure, unspecified (principal); N39.0 Urinary tract infection, site not specified; E87.1 Hypo-osmolality and hyponatremia; E10.9 Type 1 diabetes mellitus without complications; Z79.4 Long term (current) use of insulin; D64.9 Anemia, unspecified; E86.0 Dehydration; E87.5 Hyperkalemia; R32 Unspecified urinary incontinence; E83.51 Hypocalcemia; D69.6 Thrombocytopenia, unspecified; K90.0 Celiac disease; F32.9 Major depressive disorder, single episode, unspecified; N32.81 Overactive bladder; Z88.2 Allergy status to sulfonamides; Z88.8 Allergy status to other drugs, medicaments and biological substances; Z90.710 Acquired absence of both cervix and uterus; I95.9 Hypotension, unspecified; K59.00 Constipation, unspecified; B96.20 Unspecified Escherichia coli [E. coli] as the cause of diseases classified elsewhere
CPT/HCPCS: 1NP; 84133; 84300; 36415; 36592; 71045; 74176; 81001; 82436; 82570; 86920; 87040; 87086; 93005; 93010; 93306; 96360; J0696; J0713; J0885-EC; J1644; J1815; J2405; J7040; P9016

== ENCOUNTER 2017-10-25 13:57 | Inpatient (IN) | payer OTHER ==
[~2017-10-25] VITALS: Ht 165.1 cm; Wt 52.8 kg
[~2017-10-25 13:57] MED LIST changes: +BISACODYL5 M1 PO; +FERROUS SULFAT325 M2 PO; +NYSTATIN15 G1 TOP; +OMEPRAZOLE20 M2 PO
[2017-10-25 14:31] LABS: HEMATOCRIT 31.3 % (37-47)
[2017-10-25 14:35] LABS: MEAN CORPUSCULAR HGB CONC 32.1 G/DL (33.0-37.0); MEAN CORPUSCULAR VOLUME 80.9 FL (81.0-99.0); MEAN PLATELET VOLUME 8.7 FL (7.4-10.4); PLATELET COUNT 723 /CUMM (130-400); RBC DISTRIBUTION WIDTH 20.2 % (11.5-14.5); RED BLOOD CELL CT 3.87 /CUMM (4.20-5.40); WHITE BLOOD CELL COUNT 7.1 /CUMM (4.8-10.8)
--- NOTE | 2017-10-25 15:27 | ED GENERAL ADULT ---
History of Present Illness General Chief Complaint: General Adult Stated Complaint: POTASSIUM HIGH Source: patient, family, old records Exam Limitations: no limitations Vital Signs & Intake/Output Vital Signs & Intake/Output Vital Signs Date Time Temp Pulse Resp B/P B/P Pulse O2 O2 Flow FiO2 Mean Ox Delivery Rate 10/25 1406 97.8 112 20 97/65 96 Room Air Allergies Coded Allergies: No Known Allergies (10/25/17) Reconcile Medications Bisacodyl 5 MG TABLET. 5 MG PO DAILY PRN CONSTIPATION . Ciprofloxacin HCl (Cipro) 500 MG TABLET 1 TAB PO BID uti Escitalopram Oxalate 5 MG TABLET 1 TAB PO DAILY DEPRESSION (Reported) Ferrous Sulfate 325 MG (65 MG IRON) TABLET. 325 MG PO DAILY ANEMIA . Insulin Aspart (Novolog) 100 UNIT/ML VIAL 0 UNITS SC TIDAC/HS DIABETES less than 100 mg/dl no coverage. 100-150 give 2 units 151-200 give 2 units 201-250 give 3 units 251-300 give 4 units 301-350 give 4 units 351-400 give 4 units more than 400 give 5 units Insulin Glargine,Hum.rec.anlog (Toujeo Solostar) 300 UNIT/ML (1.5 ML) INSULN.PEN 8 UNITS SC QAM DIABETES Nystatin 100,000 UNIT/GRAM CREAM..G. 1 MARLYS TOP BID RASH . Omeprazole 20 MG CAPSULE. 40 MG PO DAILY AC GASTRITIS . Triage Note: PT TO ED WITH SON, SENT IN BY DR HERNANDEZ FOR HIGH POTASSIUM AND LOW H&H. PT C/O FEELING TIRED AND WEAK. SON STATES PT VOMITED THIS AM. PT WAS ADMITTED TO [facility] FOR 5 DAYS, DISCHARGED HOME ON 10/17. Triage Nurses Notes Reviewed? yes Onset: Gradual Duration: day(s): Timing: recent history Injury Environment: home Severity: moderate HPI: 82YO FEMALE with history of diabetes, ITP presents emergency department sent in by Dr. Hernandez for hyperkalemia. Patient was Recently admitted in September for hyperkalemia, SHREE, urosepsis. Patient has been taking cipro at home for her UTI, she finished full course of antibiotics. She has seen an ballroom dance instructor, Dr. Conteh, and her blood sugars have been improving. Patient had outpatient labs and her doctor called her to tell her to come to the ER for elevated potassium. Patient reports headache and one episode of vomiting today. Currently she feels in her usual state of health. The patient denies chest pain, dyspnea, abdominal pain. (Cheri Maciel) Past History Travel History Traveled to [place] past 21 day No Medical History Any Pertinent Medical History? 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 SISTER (diabetes). DAUGHTER (Diabetes). Hx Contributory? No (Cheri Maciel) Review of Systems Review of Systems Constitutional: Reports: no symptoms. EENTM: Reports: no symptoms. Respiratory: Reports: no symptoms. Cardiovascular: Reports: no symptoms. GI: Reports: see HPI. Genitourinary: Reports: see HPI. Musculoskeletal: Reports: no symptoms. Skin: Reports: no symptoms. Neurological/Psychological: Reports: see HPI. Hematologic/Endocrine: Reports: no symptoms. Immunologic/Allergic: Reports: no symptoms. All Other Systems: Reviewed and Negative (hCeri Maciel) Physical Exam Physical Exam General Appearance: well developed/nourished, no apparent distress, alert, awake Head: atraumatic, normal appearance Eyes: Bilateral: normal appearance. Ears, Nose, Throat: hearing grossly normal Neck: normal inspection, supple, full range of motion Respiratory: normal breath sounds, no respiratory distress, lungs clear Cardiovascular: regular rate/rhythm Gastrointestinal: normal bowel sounds, soft, non-tender, no organomegaly Back: normal inspection, normal range of motion Extremities: normal inspection, normal range of motion Neurologic/Psych: awake, alert, oriented x 3 Skin: intact, normal color, warm/dry Core Measures ACS in differential dx? Yes CVA/TIA Diagnosis: No Sepsis Present: No Sepsis Focused Exam Completed? No (Christelle WALTER,Cheri Denise) Progress Differential Diagnoses I considered the following diagnoses in my evaluation of the patient: [ Hyperkalemia, anemia, acute coronary syndrome, acute kidney injury, dehydration] Plan of Care: Orders Procedure Date/time Status Consistent Carbohydrate 2 10/25 D Active OXYGEN SETUP (GEN) 10/25 163 Active Saline Lock 10/[address] in observation 10/25 1632 Active Vital Signs 10/25 1632 Active Activity/Ambulation 10/25 1632 Active Code Status 10/25 1632 Active Add-on Test (ER Only) 10/25 1501 Active TROPONIN LEVEL 10/25 1424 Complete MAGNESIUM 10/25 1424 Complete COMPREHENSIVE METABOLIC PANEL 10/25 1409 Complete CBC WITHOUT DIFFERENTIAL 10/25 1409 Complete EKG 10/25 1409 Active Current Medications Sig/Tevin Start time Last Medication Dose Stop Time Status Admin Calcium Gluconate 1 GM ONCE ONE 10/25 1600 AC 10/25 (Calcium Gluconate) 10/25 1659 1641 Sodium Chloride 100 ML (Normal Saline 0.9%) Laboratory Tests 10/25/17 1424: Anion Gap 14, Estimated GFR 39 L, BUN/Creatinine Ratio 16.9, Glucose 65, Calcium 8.6, Magnesium 2.3, Total Bilirubin 0.3, AST 19, ALT 26, Alkaline Phosphatase 142 H, Troponin I < 0.01, Total Protein 6.9, Albumin 3.2 L, Globulin 3.7, Albumin/Globulin Ratio 0.9 L, CBC w Diff MAN DIFF ORDERED, RBC 3.87 L, MCV 80.9 L, MCH 26.0 L, MCHC 32.1 L, RDW 20.2 H, MPV 8.7, Segmented Neutrophils 65, Band Neutrophils 2, Lymphocytes 24, Monocytes 3, Eosinophils 6 H, Platelet Estimate INCREASED, Hypochromic-Microcytic 1+, Poikilocytosis 1+, Anisocytosis 1+ Patient's potassium is elevated at 6.0, EKG shows peaked T waves compared to previous study. Patient's kidney function has improved from previous labs at which time she was admitted for acute kidney injury. Currently patient feels symptom-free. The patient was started on medications to reduce potassium. Given hyperkalemia in setting of acute EKG changes patient requires hospital stay for IV medications, telemetry monitoring, electrolyte monitoring. Case management recommend observation. Dr. Dawson spoke with hospitalist, Dr. Joiner, regarding telemetry admission. Initial ED EKG: sinus rhythm @94bpm, t wave changes Prior EKG: changed (Cheri Maciel) Departure Departure Disposition: STILL A PATIENT Condition: Stable Clinical Impression Primary Impression: Hyperkalemia Secondary Impressions: Acute electrocardiogram changes Referrals: Lisa Hernandez DO (PCP/Family) Departure Forms: Customer Survey General Discharge Information Observation Note Spoke With: Thomas Joiner MD Physician Advisor Notified: FRANCISCO VILLARREAL DO Place Patient In: Non-ED OBS Care Area Rationale for Observation: My rational for observation is as follows [hyperkalemia with acute EKG changes requiring IV fluids, repeat chemistry panel, telemetry monitoring, premature discharge medically unsafe]. (Cheri Maciel) PA/SMALL ARMS REPAIRER Co-Sign Statement Statement: ED Attending supervision documentation- x I saw and evaluated the patient. I have also reviewed all the pertinent lab results and diagnostic results. I agree with the findings and the plan of care as documented in the PA's/SMALL ARMS REPAIRER's documentation. N/V, weak referred for hyperkalemia with peaked t waves on EKG. [] I have reviewed the ED Record and agree with the PA's/SMALL ARMS REPAIRER's documentation. [] Additions or exceptions (if any) to the PAs/SMALL ARMS REPAIRER's note and plan are summarized below: [] (Samir KING,Ruslan) Critical Care Note Critical Care Note Critical Care Time: 30-74 min (Cheri Maciel)
--- NOTE | 2017-10-25 17:15 | History & Physical ---
Amber Morris 10/25/17 1715: General Information and HPI History of Present Illness: Patient is an 82 years old female with a past medical history of celiac disease, diabetes mellitus, recurrent UTI, chronic anemia, reactive thrombocytosis, overactive bladder, urinary incontinence, and depression. Patient was in her usual state of health when she went to see her PCP for a visit and was referred to the emergency department for hyperkalemia. She was accompanied. Pt reports she feels tired, weak and hungry. She vomited this morning. She had headache X1day. ROS: Appetite normal. No chest pain, shortness of breath, fever, chills, abd pain Ambulation: She uses a walker and wheelchair at home but lately she has used wheelchair more because she has been tired. She has a 24 hour aide at home. Last Admission: Patient was admitted to [facility] for 5 days (10/11 to ). She presented with weakness, dizziness and near syncope. She was diagnosed with urosepsis, hyperkalemia and she finished her antibiotic treatment yesterday. Allergies/Medications Allergies: Coded Allergies: No Known Allergies (10/25/17) Home Med list Bisacodyl 5 MG TABLET.DR 5 MG PO DAILY PRN CONSTIPATION . Escitalopram Oxalate 5 MG TABLET 1 TAB PO DAILY DEPRESSION (Reported) Ferrous Sulfate 325 MG (65 MG IRON) TABLET. 325 MG PO DAILY ANEMIA . Insulin Aspart (Novolog) 100 UNIT/ML VIAL 0 UNITS SC TIDAC/HS DIABETES 80-120- 2 units 121-150-7 units 151-200-8 units 201-250-9 units 251-300-10 units 301-350-11 units greater than 400-13 units 351-400 give 4 units more than 400 give 5 units Insulin Glargine,Hum.rec.anlog (Toujeo Solostar) 300 UNIT/ML (1.5 ML) INSULN.PEN 24 UNITS SC QAM DIABETES Nystatin 100,000 UNIT/GRAM CREAM..G. 1 MARLYS TOP BID RASH . Omeprazole 20 MG CAPSULE. 40 MG PO DAILY AC GASTRITIS . 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 SISTER (diabetes). DAUGHTER (Diabetes). Psychosocial History Who Do You Live With? self Services at Home: Home Health Aide Primary Language: Turkish ETOH Use: denies use Illicit Drug Use: denies illicit drug use Living Will? yes Power of Track Repair Supervisor/HCP? yes Name of POA/HCP: Rolan Rich Functional Ability ADLs Independent: dressing, bathing. Needs Assist: eating, toileting. Ambulation: walker IADLs Independent: finances, telephone. Needs Assist: shopping, housework, food prep, transportation, medication admin. Review of Systems Review of Systems Constitutional: Reports: see HPI. EENTM: Reports: see HPI. Cardiovascular: Reports: see HPI. Respiratory: Reports: see HPI. GI: Reports: see HPI. Genitourinary: Reports: see HPI. Musculoskeletal: Reports: see HPI. Skin: Reports: see HPI. Neurological/Psychological: Reports: see HPI. Exam & Diagnostic Data Last 24 Hrs of Vital Signs/I&O Vital Signs Date Time Temp Pulse Resp B/P B/P Pulse O2 O2 Flow FiO2 Mean Ox Delivery Rate 10/25 1829 97.9 82 17 133/62 97 Room Air 10/25 1700 98.2 78 17 113/50 98 Room Air 10/25 1406 97.8 112 20 97/65 96 Room Air Intake & Output 10/25 1600 10/25 0800 10/25 0000 Intake Total Output Total Balance Patient 120 lb Weight Weight Estimated Measurement Method Physical Exam General Appearance Alert, Oriented X3, Cooperative Skin No Rashes, No Breakdown, No Significant Lesion Skin Temp/Moisture Exam: Warm/Dry Sepsis Skin Exam (color): Normal for Ethnicity HEENT Atraumatic, PERRLA, EOMI, Mucous Membr. moist/pink Neck Supple Cardiovascular Regular Rate, Normal S1, loud S2 at mitral area and holosytolic murmur loudest at the mitral area. Lungs Clear to Auscultation Abdomen Normal Bowel Sounds, Soft, No Tenderness Neurological Normal Tone, right lower extremity power: 4/5 Extremities No Clubbing, No Cyanosis, No Edema, Normal Pulses Diagnostic Data EKG Results HR 94, NSR, Left axis deviation Assessment/Plan Assessment: Patient is an 82 years old female with a past medical history of celiac disease, diabetes mellitus, recurrent UTI, chronic anemia, reactive thrombocytosis, overactive bladder, urinary incontinence, and depression. Problem list: 1. Hyperkalemia: Patient has a history of a SHREE on CKD, this time the hyperkalemia is related to her dietary choices she has been eating a lot of raisins. She was given the hyperkalemia cocktail of insulin/calcium gluconate/ Kayexalate in the ED and it will be given tonight and next morning, depending on her potassium leve. We will also get a follow-up EKG. Hyperkalemia might also be associated due to her medication Lexapro. 2. Diabetes mellitus: She is insulin-dependent and on Levemir right now. We will continue Accu-Cheks. 3. Hyperkalemic metabolic acidosis: She has a anion gap of 13. patient vomited so that might be the reason we are encouraging her to stay hydrated. 4. CKD: Creatinine was 1.3. #Code status: DNR/DNI #DVT prophylaxis with subcutaneous heparin. As Ranked By This Provider Problem List: 1. Hyperkalemia 2. DVT prophylaxis 3. IDDM (insulin dependent diabetes mellitus) 4. DNR (do not resuscitate) 5. DNI (do not intubate) Core Measures/Misc (01/10) Acute Coronary Syndrome ACS Diagnosis: No Congestive Heart Failure Congestive Heart Failure Diagnosis No Cerebrovascular Accident CVA/TIA Diagnosis: No VTE (View Protocol) VTE Risk Factors Age>40 No Mechanical VTE Prophylaxis d/t Other No VTE Pharm Prophylaxis d/t NA PharmProphylax ordered Sepsis (View protocol) Sepsis Present: No If YES complete Sepsis Event Note If YES complete Sepsis Event Note Nancy Lopez 10/25/172020: General Information and HPI Statement: I have seen and personally examined ANDERS RICH and documented this H&P. The patient is a 82 year old F who presented with a patient stated chief complaint of high potassium. Exam & Diagnostic Data Last 24 Hrs of Vital Signs/I&O Vital Signs Date Time Temp Pulse Resp B/P B/P Pulse O2 O2 Flow FiO2 Mean Ox Delivery Rate 10/25 1903 98.2 80 19 106/60 97 10/25 1829 97.9 82 17 133/62 97 Room Air 10/25 1700 98.2 78 17 113/50 98 Room Air 10/25 1406 97.8 112 20 97/65 96 Room Air Intake & Output 10/25 1600 10/25 0800 10/25 0000 Intake Total Output Total Balance Patient 120 lb Weight Weight Estimated Measurement Method Core Measures/Misc (01/10) Sepsis (View protocol) If YES complete Sepsis Event Note If YES complete Sepsis Event Note Resident Review Statement Resident Statement: discussed with planning intern, discussed with family, reviewed images Other Findings: 82-year-old woman with a history of diabetes, celiac disease, iron deficiency anemia with reactive thrombocytosis, recurrent urinary tract infections h/o sepsis of urologic origin secondary to E. coli and MRSA, recently admitted to [facility] from 10/11/17-10/17/17 for UTI and treated with IV ceftriaxone and discharged on ciprofloxin which she completed yesterday. During that admission she also found to be hyponatremic and hyperkalemic. Since her discharge she states that she has been feeling weak and has been using her wheelchair more than her walker. She had lab work done by her PCP and she was called to come to ED because her potassium was elevated. Yesterday she felt unwell and had one episode on nonbloody vomitus. Denies fevers, chills, shortness of breath, abdominal pain, muscle weakness, dysuria. ROS pos for constipation since the last 2 days. She also endorses eating alot of raisins and bananas in her diet. Vitals afebrile, normotensive, saturating 97% on RA. On examination she looks cachetic, CVS: loud S2 with systolic murmur loudest at mitral area. Lungs CTA. mild weakness 4/5 in left lower extremity Labs: no leukocytosis, microtic anemia, reactive thrombocytosis, hyperkalemia ( 6.0), hyperchloremic metabolic acidosis, BUN 23 and Creatinine 1.3 (baseline 1.1 -1.3), EKG NSR, HR 94, mild peaking of Twaves in V4-6 Problem list: Hyperkalemia IDDM reactive thrombocytosis 2/2 microcytic anemia (ROSALIA 2 neg two years ago) CKD- stable depression Assessment/plan: Hyperkalemia previously has been associated with SHREE, might be due to her diet. Place as obs on telefloor to [facility] for arrthymias, was given insulin/ca/glu along with kayexalate in ED, will repeat it later tonight and if elevated obtain EKG. Nutrition consulted for patient education on avoiding high K foods Lexapro is the only culprit in her list of med that could possible cause hyperk + as some studies have shown hyperk in elderly woman. However as this is a chronic medication which is associated with discontinuation syndrome, consider discussing with pyschiatry IDDM accucheck, ISS and levemir 8 units in am hypercholemic metabolic acidosis likely secondary to her vomitting, continue to monitor, encourage PO intake DVT sc heparin DNR/DNI Thomas Joiner MD 10/25/171: Core Measures/Misc (01/10) Sepsis (View protocol) If YES complete Sepsis Event Note If YES complete Sepsis Event Note Attending MD Review Statement Attending Statement Attending MD Statement: examined this patient, discuss w/resident/PA/RING SEWER, agreed w/resident/PA/RING SEWER, discussed with family, reviewed EMR data (avail), amended to note Attending Assessment/Plan: The patient is an 82 yo female with h/o DM2, celiac disease, recurrent UTI's ( recent UTI/sepsis of urologic origin), chronic anemia, OAB/urinary incontinence and depression who presented in the ED for evaluation of hyperkalemia noted by her PCP (Dr. Poe). K was 6.0. She had a recent [facility] admission (10/11-) for SHREE/hyperkalemia that resolved. The patient did note some mild weakness and did vomit x 1, otherwise was without complaints. EKG showed peak T-waves. The patient was not on a low potassium diet and I stopped her from eating a box of raisons as a snack in the ED (she eats raisons and bananas. She received glucose /insulin and kayexalate in ED. She just completed course of Cipro. Recently saw endocrinology who adjusted her sliding scale insulin. Physical Exam: VS: T 97.9, P 112-92, R 17, BP 133/62, PO 98% RA HEENT: eyes- PERRLA, EOMI rose- sl dry mucosa Neck: no JVD/bruits Chest: clear Cor: RRR nl S1, S2, + 3-4/6 sys murm Abd: BS+, soft, NT, - HSM Ext: no edema, pulses 1+ Neuro: alert & oriented x 3, non-focal exam, mild generalized weakness (gait not tested) Skin: diminished turgor Labs/Tests- as above Impression/Plan: #Hyperkalemia- recent h/o UTI/SHREE, however renal function not much different than baseline. May be slightly volume depleted. Received saline, etc. in ED ( glucose, insulin, kayexalate). The patient has not been following a low potassium diet (renal function had normalized). She does eat raisons and bananas often as snacks. T-waves are peaked compared to prior EKG. The patient is also on Lexapro and resident investigated this drug as a possible cause of hyperkalemia. Plan: Will bring into telemetry as OBServation patient- follow telemetry for arrhythmia. Follow-up K level after IV fluids, glucose/insulin, kayexalate in ED. Low potassium diet. Consider discontinuation of Lexapro if felt to be potential cause of hyperkalemia. Consider endocrine/nephro consult. #Recent UTI/Sepsis- completed course of Abx. Plan: Check U/A & C&S. #Weakness- multifactorial. S/P recent sepsis of urologic origin, slight volume depletion, elevated K. Plan: PT consult/ambulate. #DM2- recently had sliding scale adjusted by endocrinology (Dr. Conteh). Plan: Will follow new sliding scale. #Chronic Anemia/Thrombocytosis- no change since last admission. Plan: OP follow-up. #GERD- on omeprazole. Plan: Continue Omeprazole.
[2017-10-25 19:03] VITALS: BP 106/60
[2017-10-25 22:30] VITALS: BP 124/68
[2017-10-26 06:00] VITALS: BP 112/60
--- NOTE | 2017-10-26 06:35 | PN- Housestaff ---
Subjective Tele-Events Since Last Visit: SR. 76-83. Subjective: She slept well last night. no complaints. the Hyperkalemia cocktail was given at 10 PM last night and then at 6am today.
--- NOTE | 2017-10-26 08:03 | PN-Observation ---
Observation Note Observation Note _ I have personally examined ANDERS SALAZAR. her disposition is uncertain at this time. Before a determination can be made, she requires continued observation for hyperkalemia, recent admission for urosepsis, diabetic nephropathy. Assessment/Plan Medical Problem List: 1. Hyperkalemia 2. Hyperglycemia 3. DNR (do not resuscitate) 4. DNI (do not intubate) Plan: The patient is an 82-year-old female with a past medical history of insulin- dependent diabetes ,reactive thrombocytosis, chronic anemia, recurrent UTIs celiac disease, overactive bladder, urinary incontinence, depression. From October 11 - October 17 she was admitted to the floor with urosepsis with E. coli. Vital signs today were: Afebrile, pulse 79, blood pressure 112/60, 98% on room air. Assessment and plan: Problems: #Hyperkalemia: Patient's potassium is still the sixes. Giving her another dose of Kayexalate. And we will repeat her potassium levels again. We have called for a nephrology consult to figure out the cause and evaluate her refractory hyperkalemia. Later in the day, per nephrology consult we ordered plasma potassium level to check for pseudohyperkalemia which came to 4.6. #Insulin dependent diabetes mellitus: Patient is put on her home dose of insulin as per the son's request. Patient sees Dr. thompson as an outpatient. #Metabolic acidosis: Per nephrology consult, sodium bicarb 650 mg per oral 3 times daily. #low Hb: Nephrology recommends iron supplements #Son's concern: Patient's attending Dr. Villa spoke with the patient's son Dane. He expressed concerns about some residual urinary tract infection and tiredness after patient's last admission. Patient's condition was explained fully to the son as he is the power of estate planning attorney. We will order urine culture and urinalysis. We will update the son about the patient's condition regularly. I called the patient late afternoon and updated him about the urinalysis, potassium level and nephrology consult. Was concerned about her blood glucose levels as he wanted us to follow Dr. thompson's recommendations which the patient uses at home. He would like us to call him back tomorrow morning with more updates. #Diet: Regular diet #CODE STATUS: DNR/DNI #Dvt prophylaxis Alps: Nephrology consult recommends DC of subcu heparin and changing to SCDs Subjective Follow-up For: Hyper kalemia Complaints: no complaints Tele-Events Since Last Visit: Sinus rhythm heart rate 76-83 no acute events. Subjective: Ports sleeping last night. No acute events. Complains of headache and feeling tired. Review of Systems Constitutional: Reports: see HPI. EENTM: Reports: see HPI. Cardiovascular: Reports: no symptoms. Respiratory: Reports: no symptoms. Gastrointestinal: Reports: see HPI. Objective Last 24 Hrs of Vital Signs/I&O Vital Signs Date Time Temp Pulse Resp B/P B/P Pulse O2 O2 Flow FiO2 Mean Ox Delivery Rate 10/26 1600 99 Room Air 10/26 1443 98.3 84 18 104/50 99 Room Air 10/26 0800 98 Room Air 10/26 0600 97.8 79 20 112/60 98 Room Air 10/25 2230 98.2 85 18 124/68 99 10/25 1903 98.2 80 19 106/60 97 10/25 1829 97.9 82 17 133/62 97 Room Air Intake & Output 10/26 1600 10/26 0800 07/ 0000 Intake Total 560 590 480 Output Total Balance 560 590 480 Intake, IV 110 Intake, Oral 560 480 480 Number 1 0 0 Bowel Movements Patient 123 lb 123 lb Weight Weight Bed scale Bed scale Measurement Method Physical Exam General Appearance: Alert, Oriented X3, Cooperative, No Acute Distress Skin: No Rashes, No Breakdown, No Significant Lesion Skin Temp/Moisture Exam: Warm/Dry Sepsis Skin Exam (color): Normal for Ethnicity HEENT: Atraumatic, PERRLA, Mucous Membr. moist/pink Neck: Supple Cardiovascular: Regular Rate (loud s2) Lungs: Clear to Auscultation, Normal Air Movement Abdomen: Normal Bowel Sounds, Soft, No Tenderness
[2017-10-26 08:30] LABS: ABSOLUTE BASOPHIL COUNT 0 /CUMM (0.0-0.2); ABSOLUTE EOSINOPHIL COUNT 0.4 /CUMM (0.0-0.7); ABSOLUTE GRANULOCYTE CT 5.2 /CUMM (1.4-6.5); ABSOLUTE LYMPH COUNT 1.1 /CUMM (1.2-3.4); ABSOLUTE MONOCYTE COUNT 0.6 /CUMM (0.10-0.60); BASOPHIL % 0 % (0.0-2.0); EOSINOPHIL % 5.6 % (0-5); GRANULOCYTE % 71.4 % (42.2-75.2); HEMATOCRIT 27.7 % (37-47); MEAN CORPUSCULAR HGB 25.9 PG (27.0-31.0); MEAN CORPUSCULAR HGB CONC 31.3 G/DL (33.0-37.0); MEAN CORPUSCULAR VOLUME 82.6 FL (81.0-99.0); MEAN PLATELET VOLUME 9.8 FL (7.4-10.4); RBC DISTRIBUTION WIDTH 21.3 % (11.5-14.5); RED BLOOD CELL CT 3.36 /CUMM (4.20-5.40)
[2017-10-26 09:38] LABS: PLATELET COUNT 632 /CUMM (130-400); WHITE BLOOD CELL COUNT 7.3 /CUMM (4.8-10.8)
--- NOTE | 2017-10-26 11:26 | Patient Discharge Instructions ---
Discharge Instructions General Discharge Information You were seen/treated for: Hyperkalemia Watch for these problems: In case of dysuria,nausea, vomitting, abd pain, chest pain please go to the nearest emergency room Special Instructions: please follow up with PCP/NEPHROLOGY IN 2 WEEKS . PLEASE DO BEP IN 1 WEEK and follow-up with your primary care provider. Please avoid potassium rich foods [printout was given to the patient] Diet Continue normal diet: No Recommended Diet: Regular no added salt, 2 GM POTASSIUM /DAY Activity Full Activity/No Limits: No Activity Self Limited: Yes Acute Coronary Syndrome Inclusion Criteria At DC or during hospital stay patient has or had the following: ACS DIAGNOSIS No Discharge Core Measures Meds if any: Prescribed or Continued at Discharge Meds if any: NOT Prescribed or Continued at Discharge Congestive Heart Failure Inclusion Criteria At DC or during hospital stay patient has or had the following: CHF DIAGNOSIS No Discharge Core Measures Meds if any: Prescribed or Continued at Discharge Meds if any: NOT Prescribed or Continued at Discharge Cerebrovascular accident Inclusion Criteria At DC or during hospital stay patient has or had the following: CVA/TIA Diagnosis No Discharge Core Measures Meds if any: Prescribed or Continued at Discharge Meds if any: NOT Prescribed or Continued at Discharge Venous thromboembolism Inclusion Criteria VTE Diagnosis No VTE Type NONE VTE Confirmed by (Test) NONE Discharge Core Measures - Per Current guidelines, there needs to be overlap - treatment for the first 5 days of Warfarin therapy. - If discharged on Warfarin prior to 5 days of - overlap therapy, the patient will need to be - assessed for post discharge needs including - *Post discharge parental anticoagulation - *Warfarin and/or parental anticoagulation education - *Follow up date to check INR post discharge At least 5 days overlap therapy as Inpatient No Meds if any: Prescribed or Continued at Discharge Note: Overlap Therapy is Warfarin and Anticoagulant Meds if any: NOT Prescribed or Continued at Discharge
[2017-10-26] MEDS ORDERED: NOVOLOG100 UNIT/2 SC ×2 (11:27→11:42)
[2017-10-26] MEDS ORDERED: TOUJEO SOL300 UNIT/1 SC (11:27)
--- NOTE | 2017-10-26 11:30 | PN- Att Addend ---
Attending Addendum Attending Brief Note Patient seen and examined. Agree with biology internship's note. This is an 82-year-old female with a past medical history of diabetes on insulin and follows with Dr. thompson, chronic anemia and reactive thrombocytosis who was recently here in the hospital with Escherichia coli septicemia of urological origin. She was seen by ID and discharged on by mouth Cipro and has completed her course of antibiotics. She had some mild right-sided hydronephrosis but no urological intervention was pursued. She has CKD with a baseline GFR in the 40s and had come in at that point with SHREE which has since resolved. Her son says that since she's gotten home she's been very be lethargic and they came in because on routine blood tests ordered by the PCP Lisa Poe, DO she was found to be profoundly hyperkalemic. She has remained hyperkalemic overnight with a K in the sixes of unclear etiology. Her CKD has not worsened, there is no obvious fauzia/arb or any other obvious medication that would cause the hyperkalemia. Overnight she got Kayexalate, calcium gluconate, insulin and glucose and this morning given that the K is still 6 we are repeating a dose of the Kayexalate and repeating her potassium later today. We'll also call a formal renal consult to clarify the hyperkalemia. Given all of the competing medical problems with the weakness, hyperkalemia that's been refractory I think at this point she warrants a 48-hour stay and an inpatient admission and will follow closely. Her son Dane who can be reached at [phone] is her power of research attorney and would like frequent updates.
--- NOTE | 2017-10-26 12:46 | Cons- Nephrology ---
General Information and HPI Consulting Request Date of Consult: 10/26/17 Requested By: Ariana KING,Brianna Evans Reason for Consult: hyperkalemia Source of Information: patient, old records Exam Limitations: no limitations History of Present Illness: The patient is an 82-year-old female with a 15 year history of diabetes, insulin -dependent, chronic right-sided hydronephrosis, history of urinary tract infections, chronic kidney disease with a baseline creatinine of 1-1.1 associated with dipstick proteinuria, who was recently admitted with urinary tract infection, sepsis and AK I with a creatinine improved from 2.7-1.1 on discharge. She was discharged on by mouth Cipro. She was sent back to the hospital by her farm equipment engineer with hyperkalemia with a potassium of 6.1. She had been eating high potassium foods at home including tomatoes, bananas and melon. She has not been on an NIRMALA inhibitor or ARB. She was started on subcutaneous heparin in the hospital. Upon review of labs she has a chronic metabolic acidosis with a bicarbonate level chronically runs in the 15-21 range, currently 19. Anion gap is 10. She denies NSAID use is been no recent IV contrast exposure. Her main complaint is that she is fatigued. She does have a chronic anemia with a hemoglobin level that is currently 8.7 associated with a low iron saturation and a low normal ferritin the 40s. Allergies/Medications Allergies: Coded Allergies: No Known Allergies (10/25/17) Home Med List: Bisacodyl 5 MG TABLET. 5 MG PO DAILY PRN CONSTIPATION . Escitalopram Oxalate 5 MG TABLET 1 TAB PO DAILY DEPRESSION (Reported) Ferrous Sulfate 325 MG (65 MG IRON) TABLET. 325 MG PO DAILY ANEMIA . Insulin Aspart (Novolog) 100 UNIT/ML VIAL 0 UNITS SC TIDAC/HS DIABETES 80-120- 2 units 121-150-7 units 151-200-8 units 201-250-9 units 251-300-10 units 301-350-11 units greater than 400-13 units 351-400 give 4 units more than 400 give 5 units Insulin Glargine,Hum.rec.anlog (Toujeo Solostar) 300 UNIT/ML (1.5 ML) INSULN.PEN 24 UNITS SC QAM DIABETES Nystatin 100,000 UNIT/GRAM CREAM..G. 1 MARLYS TOP BID RASH . Omeprazole 20 MG CAPSULE. 40 MG PO DAILY AC GASTRITIS . Current Medications: Current Medications Sig/Tevin Start time Last Medication Dose Route Stop Time Status Admin Acetaminophen 650 MG ONCE ONE 10/26 0645 DC 10/26 PO 10/26 0646 0636 Bisacodyl 5 MG DAILY PRN 07 1845 AC 10/26 PO 0909 Calcium Gluconate 1 GM ONCE ONE 10/25 2345 DC 10/26 Sodium Chloride 100 ML IV 10/26 0044 0028 Calcium Gluconate 0 .STK-MED ONE 10/25 1611 DC IV Calcium Gluconate 1 GM ONCE ONE 10/25 1600 DC 10/25 Sodium Chloride 100 ML IV 10/25 1659 1641 Dextrose 25 GM ONCE ONE 10/25 2345 DC 10/26 IV 10/25 2346 0028 Dextrose 0 .STK-MED ONE 10/25 1611 DC IV Dextrose 25 GM ONCE ONE 10/25 1600 DC 10/25 IV 10/25 1601 1641 Escitalopram Oxalate 5 MG DAILY 10/26 0900 AC 10/26 PO 0909 Ferrous Sulfate 325 MG DAILY 10/26 0900 AC 10/26 PO 0908 Heparin Sodium 5,000 UNIT Q8 10/25 2200 DC 10/26 (Porcine) SC 0607 Insulin Aspart 0 TIDAC 10/26 0800 AC 10/26 SC 1224 Insulin Detemir 24 UNITS DAILY 10/27 0900 AC SC Insulin Detemir 16 UNITS ONCE ONE 10/26 1215 DC 07 SC 10/26 1216 1225 Insulin Detemir 8 UNITS DAILY 10/26 0900 DC 10/26 SC 0909 Insulin Human Regular 10 UNITS .STK-MED ONE 10/26 0002 DC IV 10/26 0003 Insulin Human Regular 10 UNITS ONCE ONE 10/25 2345 DC 10/26 IV 10/25 2346 0028 Insulin Human Regular 10 UNITS ONCE ONE 10/25 1615 DC 07 IV 10/25 1616 1641 Melatonin 5 MG AT BEDTIME 10/26 2100 DC PO Melatonin 5 MG AT BEDTIME 10/25 2200 AC 10/25 PO 2155 Omeprazole 40 MG DAILY AC 10/26 0700 AC 10/26 PO 0607 Sodium Chloride 1,000 ML BOLUS ONE 10/25 1515 DC 10/25 IV 10/25 1614 1507 Sodium Polystyrene 60 ML ONCE ONE 10/26 0945 DC 10/26 Sulfonate PO 10/26 0946 0953 Sodium Polystyrene 60 ML ONCE ONE 10/25 2345 DC 10/26 Sulfonate PO 10/25 2346 0028 Sodium Polystyrene 0 .STK-MED ONE 10/25 1611 DC Sulfonate .ROUTE Sodium Polystyrene 60 ML ONCE ONE 10/25 1600 DC 10/25 Sulfonate PO 10/25 1601 1641 Review of Systems Review of Systems: Gen: neg fever, chills, nightsweats, +wt loss +fatigue Skin: neg rash, pruritus Eye: neg visual changes, diplopia ENT: neg hearing changes, rhinitus CV: neg CP, SOB, WEISS, PND, orthopnea Pulm: neg cough, sputum, hemoptysis GI: neg nausea, vomiting, diarrhea, abdominal pain, hematemesis, BRBPR : neg dysuria, frequency, urgency, hematuria, foamy urine, nocturia Musculoskeletal: neg myalgias, arthralgias Neuro: neg weakness, numbness Psych: neg depression, mental status changes Heme: neg bruising, easy bleeding, clots Past History Travel History Traveled to [place] past 21 day No Medical History Blood Transfusion Hx: Yes Neurological: NONE (memory issues) EENT: NONE Cardiovascular: NONE Respiratory: NONE Gastrointestinal: CELIAC DISEASE Hepatic: NONE Renal: UTI'S Musculoskeletal: R HIP FX Psychiatric: NONE Endocrine: IDDM Blood Disorders: ITP Cancer(s): NONE OPTICAL WORKER/Reproductive: NONE (vag hyst for prolapse) Surgical History Surgical History: hysterectomy, status post right hip ORIF 2 years prior to admission s/p right foot surgery Family History Relations & Conditions If Any: MOTHER (Diabetes). SISTER (diabetes). DAUGHTER (Diabetes). Psychosocial History Who Do You Live With? self Services at Home: Home Health Aide Primary Language: Algerian Smoking Status: Former Smoker ETOH Use: denies use Illicit Drug Use: denies illicit drug use Living Will? yes Power of Car Ferry Captain/HCP? yes Name of POA/HCP: Rolan Rich Functional Ability ADLs Independent: dressing, bathing. Needs Assist: eating, toileting. Ambulation: walker IADLs Independent: finances, telephone. Needs Assist: shopping, housework, food prep, transportation, medication admin. Exam & Diagnostic Data Vital Signs and I&O Vital Signs Date Time Temp Pulse Resp B/P B/P Pulse O2 O2 Flow FiO2 Mean Ox Delivery Rate 07/03 0800 98 Room Air 10/26 0600 97.8 79 20 112/60 98 Room Air 10/25 2230 98.2 85 18 124/68 99 10/25 1903 98.2 80 19 106/60 97 10/25 1829 97.9 82 17 133/62 97 Room Air 10/25 1700 98.2 78 17 113/50 98 Room Air 10/25 1406 97.8 112 20 97/65 96 Room Air Intake & Output 10/26 0400 10/25 0400 10/24 0400 Intake Total 590 480 Output Total Balance 590 480 Intake, IV 110 Intake, Oral 480 480 Number 0 0 Bowel Movements Patient 123 lb 120 lb Weight Weight Bed scale Estimated Measurement Method Physical Exam: General: NAD, A+O x3. Frail. HEENT: NC/AT. No icterus. Moist mucosa Neck: negative for VENKATESH, JVD CV: RRR, no m/r/g Pulm: CTAB, no rales Abd: soft, NT/ND, negative renal bruits Lower Ext: neg edema or chronic venous changes Upper Ext: no AVFs or AVGs Back: negative for CVA tenderness Neuro: neg tremor, asterixis Skin: no rash, jaundice : no louise catheter Results Pertinent Lab Results: Laboratory Tests 10/26 10/25 0658 2200 Chemistry Sodium (137 - 145 mmol/L) 140 Potassium (3.5 - 5.1 mmol/L) 6.1 *H 6.0 *H Chloride (98 - 107 mmol/L) 112 H Carbon Dioxide (22 - 30 mmol/L) 19 L Anion Gap (5 - 16) 10 BUN (7 - 17 mg/dL) 18 H Creatinine (0.5 - 1.0 mg/dL) 1.1 H Estimated GFR (>60 ml/min) 48 L BUN/Creatinine Ratio (7 - 25 %) 16.4 Hematology CBC w Diff NO MAN DIFF REQ WBC (4.8 - 10.8 /CUMM) 7.3 RBC (4.20 - 5.40 /CUMM) 3.36 L Hgb (12.0 - 16.0 G/DL) 8.7 L Hct (37 - 47 %) 27.7 L MCV (81.0 - 99.0 FL) 82.6 MCH (27.0 - 31.0 PG) 25.9 L MCHC (33.0 - 37.0 G/DL) 31.3 L RDW (11.5 - 14.5 %) 21.3 H Plt Count (130 - 400 /CUMM) 632 H MPV (7.4 - 10.4 FL) 9.8 Gran % (42.2 - 75.2 %) 71.4 Lymphocytes % (20.5 - 51.1 %) 15.1 L Monocytes % (1.7 - 9.3 %) 7.9 Eosinophils % (0 - 5 %) 5.6 H Basophils % (0.0 - 2.0 %) 0 Absolute Granulocytes (1.4 - 6.5 /CUMM) 5.2 Absolute Lymphocytes (1.2 - 3.4 /CUMM) 1.1 L Absolute Monocytes (0.10 - 0.60 /CUMM) 0.6 Absolute Eosinophils (0.0 - 0.7 /CUMM) 0.4 Absolute Basophils (0.0 - 0.2 /CUMM) 0 / 1424 Chemistry Sodium (137 - 145 mmol/L) 143 Potassium (3.5 - 5.1 mmol/L) 6.0 *H Chloride (98 - 107 mmol/L) 110 H Carbon Dioxide (22 - 30 mmol/L) 20 L Anion Gap (5 - 16) 14 BUN (7 - 17 mg/dL) 22 H Creatinine (0.5 - 1.0 mg/dL) 1.3 H Estimated GFR (>60 ml/min) 39 L BUN/Creatinine Ratio (7 - 25 %) 16.9 Glucose (65 - 99 mg/dL) 65 Calcium (8.4 - 10.2 mg/dL) 8.6 Magnesium (1.6 - 2.3 mg/dL) 2.3 Total Bilirubin (0.2 - 1.3 mg/dL) 0.3 AST (14 - 36 U/L) 19 ALT (9 - 52 U/L) 26 Alkaline Phosphatase (<127 U/L) 142 H Troponin I (< 0.11 ng/ml) < 0.01 Total Protein (6.3 - 8.2 g/dL) 6.9 Albumin (3.5 - 5.0 g/dL) 3.2 L Globulin (1.9 - 4.2 gm/dL) 3.7 Albumin/Globulin Ratio (1.1 - 2.2 %) 0.9 L Hematology CBC w Diff MAN DIFF ORDERED WBC (4.8 - 10.8 /CUMM) 7.1 RBC (4.20 - 5.40 /CUMM) 3.87 L Hgb (12.0 - 16.0 G/DL) 10.0 L Hct (37 - 47 %) 31.3 L MCV (81.0 - 99.0 FL) 80.9 L MCH (27.0 - 31.0 PG) 26.0 L MCHC (33.0 - 37.0 G/DL) 32.1 L RDW (11.5 - 14.5 %) 20.2 H Plt Count (130 - 400 /CUMM) 723 H MPV (7.4 - 10.4 FL) 8.7 Segmented Neutrophils (42.2 - 75.2 %) 65 Band Neutrophils (0.0 - 5.0 %) 2 Lymphocytes (20.5 - 51.1 %) 24 Monocytes (1.7 - 9.3 %) 3 Eosinophils (0 - 5.0 %) 6 H Platelet Estimate (ADEQUATE) INCREASED Hypochromic-Microcytic 1+ Poikilocytosis 1+ Anisocytosis 1+ Assessment/Plan Assessment/Recommendations Assessment: Hyperkalemia: Pseudohyperkalemia from thrombocytosis may be playing a role here. One study approximate 34% of patients with thrombocytosis had any elevated potassium level. To evaluate for this condition would check a plasma potassium level, which would be normal in the case of pseudohyperkalemia. 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 Type IV RTA causes hyperkalemia out of proportion to the degree of CKG and is more common in diabetic nephropathy as well as chronic obstructive uropathy both of which the patient has. Treatment of type IV RTA is avoidance of any agents that can blunt the renin-angiotensin aldosterone cascades such as NIRMALA inhibitor's ARB spironolactone and even subcutaneous heparin, which can decrease aldosterone production by the Yareli glomerulosa in the adrenal gland. A low potassium diet is also essential. She had been eating a lot of high potassium foods at home and this likely contributed to the hyperkalemia in the setting of CKG with a type IV RTA. Supplementation with sodium bicarbonate and is often helpful as well. If the patient is edematous and sometimes a loop diuretic can be effective however the patient appears euvolemic on exam. If hyperkalemia were remains refractory to these measures then consideration can be given to recurrent use of potassium binding resin; Kayexalate is typically poorly tolerated however of adult-onset is a newer agent that could be considered as an outpatient if this becomes a recurrent issue. Metabolic acidosis: This is predominantly a non-gap metabolic acidosis which I suspect is due to the type IV RTA. Start sodium bicarbonate supplements as above. Chronic kidney disease stage 3: Baseline creatinine runs in the 1.0-1.1 mg/dL range which is actually significant for an 82-year-old female with poor muscle mass. Cause of chronic kidney disease is suspect is due to diabetic nephropathy (15 years history of diabetes with dipstick positive proteinuria). Would check a spot urine protein creatinine ratio to quantify proteinuria. The mild chronic right hydronephrosis likely may also be contributing to her chronic kidney disease and suggest urological f/up. Anemia: She has a chronic anemia which is quite significant associated with a very low iron saturation and ferritin in the low normal range, likely due to chronic anemia of chronic disease with functional iron deficiency. Would increase ferrous sulfate to 325 mg by mouth 3 times a day if the patient can tolerate it; she does not tolerated then would consider Venofer 200 mg IV daily Recommendations: Check plasma potassium level to evaluate for pseudohyperkalemia Low potassium diet (2 g per day max) Add sodium bicarbonate 650 mg by mouth 3 times a day Suggest DC of subcutaneous heparin and changing to SCDs Avoid Bactrim, Aldactone, NIRMALA inhibitor's or ARB Patient advised to avoid fist clenching during venipuncture Kayexalate when necessary potassium level of 6 or higher iron repletion as above Recommendations discussed in detail with covering resident. Thank you for the consultation Wm Jenkins MD
[2017-10-26 14:43] VITALS: BP 104/50
[2017-10-26 23:01] VITALS: BP 118/60
[2017-10-27 07:00] VITALS: BP 122/64
[2017-10-27 07:33] LABS: ABSOLUTE BASOPHIL COUNT 0.1 /CUMM (0.0-0.2); ABSOLUTE EOSINOPHIL COUNT 0.3 /CUMM (0.0-0.7); ABSOLUTE GRANULOCYTE CT 3.2 /CUMM (1.4-6.5); ABSOLUTE LYMPH COUNT 1.1 /CUMM (1.2-3.4); ABSOLUTE MONOCYTE COUNT 0.4 /CUMM (0.10-0.60); BASOPHIL % 2.6 % (0.0-2.0); EOSINOPHIL % 5.2 % (0-5); GRANULOCYTE % 62.3 % (42.2-75.2); HEMATOCRIT 26.5 % (37-47); MEAN CORPUSCULAR HGB 25.6 PG (27.0-31.0); MEAN CORPUSCULAR HGB CONC 31.2 G/DL (33.0-37.0); MEAN CORPUSCULAR VOLUME 82.2 FL (81.0-99.0); MEAN PLATELET VOLUME 9.6 FL (7.4-10.4); RBC DISTRIBUTION WIDTH 21.5 % (11.5-14.5); RED BLOOD CELL CT 3.22 /CUMM (4.20-5.40)
--- NOTE | 2017-10-27 08:08 | PN- Housestaff ---
Amber Morris 10/27/17 0808: Subjective Follow-up For: Hyperkalemia Complaints: no complaints Tele-Events Since Last Visit: Normal sinus rhythm heart rate 63-80 Subjective: No complaints and no acute events overnight. Patient did not have a bowel movement overnight. Review of Systems Constitutional: Reports: see HPI. Objective Last 24 Hrs of Vital Signs/I&O Vital Signs Date Time Temp Pulse Resp B/P B/P Pulse O2 O2 Flow FiO2 Mean Ox Delivery Rate 10/27 1439 98.2 70 20 122/58 98 Room Air 10/27 0700 98.7 71 20 122/64 95 Room Air 10/26 2301 98.3 78 20 118/60 98 Room Air 10/26 1600 99 Room Air Intake & Output 10/27 1600 10/27 0800 10/27 0000 Intake Total 600 0 720 Output Total Balance 600 0 720 Intake, Oral 600 0 720 Number 2 Bowel Movements Patient 116 lb Weight Weight Bed scale Measurement Method Physical Exam General Appearance: Alert, Oriented X3, Cooperative, No Acute Distress Skin: No Rashes, No Breakdown, No Significant Lesion Skin Temp/Moisture Exam: Warm/Dry Sepsis Skin Exam (color): Normal for Ethnicity HEENT: Atraumatic Neck: Supple Cardiovascular: Regular Rate, loud s2 & holosystolic murmur Assessment/Plan Assessment: Patient is an 82-year-old female with a past medical history of celiac disease, diabetes mellitus insulin-dependent, recurrent UTI, chronic anemia, reactive thrombocytosis, overactive bladder, urinary incontinence, depression. She was recently admitted to [facility] for E. coli urosepsis. 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 We will follow-up with BEP and plasma potassium tomorrow a.m. recommendations that the patient follows at home. Accu-Cheks today were 149 and 176. -Hyperkalemic metabolic acidosis: Patient's sodium 140, potassium 4.9, chloride 108, bicarb 23, anion gap 9 -Son: I spoke with the patient's son and updated him about high potassium levels , fingerstick glucose levels, as well as the rest of the clinical status. I answered all the questions he had. He fully understood and agreed to our plan for the patient. Problem List: 1. Hyperkalemia 2. DNR (do not resuscitate) 3. DNI (do not intubate) 4. Hyperglycemia Pain Ratin Pain Location: none Pain Goal: Remain pain free Pain Plan: Remain pain-free Tomorrow's Labs & Rationales: CBC, BEP, plasma potassium Norma Kitchen 10/27/17 1318: Attending MD Review Statement Attending Statement Attending MD Statement: examined this patient, discuss w/resident/PA/OIL EXPERT, agreed w/resident/PA/OIL EXPERT, discussed with family, reviewed EMR data (avail), discussed with nursing, discussed with case mgmt, reviewed images, amended to note Attending Assessment/Plan: Patient seen/examined bedside. Patient denies any new complaints. Her potassium has siginificantly improved with intial treatment. Also her creatinine function has reached baseline in CKD. Nephrology thinking possibilty of Type 1V RTA in this setting for CKD of DM. Patient advised to restict potassium diet 2g/day. Avoid fauzia inhibitor/arbs in future as well as subcutaneous heparin. Patient to follow urine culture and if negative consider discharge in am. Also need to follow up urology as outpatient for mild chronic hydronephrosis.
[2017-10-27 09:35] LABS: PLATELET COUNT 586 /CUMM (130-400); WHITE BLOOD CELL COUNT 5.1 /CUMM (4.8-10.8)
[2017-10-27 14:39] VITALS: BP 122/58
[2017-10-27 23:09] VITALS: BP 120/78
--- NOTE | 2017-10-28 06:26 | PN- Housestaff ---
Amber Morris 10/28/17 0626: Subjective Follow-up For: Hyperkalemia Complaints: no complaints Tele-Events Since Last Visit: Normal sinus rhythm heart rate 60-74. Subjective: Patient slept well, she had no bowel movements overnight, no complaints no acute events. Review of Systems Constitutional: Reports: see HPI. Objective Last 24 Hrs of Vital Signs/I&O Vital Signs Date Time Temp Pulse Resp B/P B/P Pulse O2 O2 Flow FiO2 Mean Ox Delivery Rate 10/28 0645 98.2 82 20 122/60 98 Room Air 10/27 2309 98.2 87 18 120/78 97 Room Air Intake & Output 10/28 1600 10/28 0800 07 0000 Intake Total 320 200 Output Total Balance 320 200 Intake, Oral 320 200 Patient 116 lb Weight Physical Exam General Appearance: Alert, Oriented X3, Cooperative, No Acute Distress Skin: No Rashes, No Breakdown, No Significant Lesion Skin Temp/Moisture Exam: Cool/Dry Sepsis Skin Exam (color): Normal for Ethnicity HEENT: Atraumatic Neck: Supple Cardiovascular: Regular Rate, Normal S1 (loud s2) Lungs: Clear to Auscultation, Normal Air Movement Abdomen: Normal Bowel Sounds, Soft, No Tenderness Neurological: Normal Speech, Strength at 5/5 X4 Ext Extremities: No Clubbing, No Cyanosis, No Edema, Normal Pulses Assessment/Plan Assessment: Patient is an 82-year-old female with a past medical history of celiac disease, diabetes mellitus insulin-dependent, recurrent UTI, chronic anemia, reactive thrombocytosis, overactive bladder, urinary incontinence, depression. She was recently admitted to [facility] for E. coli urosepsis. 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 Labs: Plasma potassium 4.7, serum potassium 5.2, chloride 107, bicarb 22, anion gap 8, BUN 18, creatinine 1.2, hemoglobin 8.6, hematocrit 27.3 Assessment and plan: potassium is normal. outpatient -Son: I spoke with the patient's son and updated him about potassium levels, fingerstick glucose levels, and the decision to d/c. I answered all the questions he had. He fully understood and agreed to our plan. Problem List: 1. Hyperkalemia 2. Diabetes mellitus 3. Hyperglycemia 4. DNR (do not resuscitate) 5. DNI (do not intubate) Pain Ratin Pain Location: None Pain Goal: Remain pain free Pain Plan: Remain pain-free Tomorrow's Labs & Rationales: Josse Daniels MD 10/28/17 1219: Attending MD Review Statement Attending Statement Attending MD Statement: examined this patient, discuss w/resident/PA/DETECTIVE BOWLING ALLEY, agreed w/resident/PA/DETECTIVE [place], reviewed EMR data (avail), discussed with nursing, discussed with case mgmt, reviewed images, amended to note Attending Assessment/Plan: Patient seen and examined. Resting comfortably not in any acute distress. No issues overnight. No new complaints this morning. She is very eager to be discharged home. The events on telemetry monitoring. Potassium level was mildly elevated at 5.2 today. Case was discussed with the nephrology service. Recommendations are to continue patient on sodium bicarb therapy for possible type IV RTA. Patient will have labs repeated as an outpatient next week and follow-up with her primary care provider. She is medically stable to be discharged home today.
[2017-10-28 06:45] VITALS: BP 122/60
[2017-10-28 07:40] LABS: ABSOLUTE EOSINOPHIL COUNT 0.3 /CUMM (0.0-0.7); ABSOLUTE LYMPH COUNT 1.2 /CUMM (1.2-3.4); MEAN CORPUSCULAR HGB CONC 31.6 G/DL (33.0-37.0)
[2017-10-28 07:55] LABS: ABSOLUTE BASOPHIL COUNT 0 /CUMM (0.0-0.2); ABSOLUTE GRANULOCYTE CT 4.2 /CUMM (1.4-6.5); ABSOLUTE MONOCYTE COUNT 0.6 /CUMM (0.10-0.60); BASOPHIL % 0.4 % (0.0-2.0); EOSINOPHIL % 4.2 % (0-5); GRANULOCYTE % 67.7 % (42.2-75.2); HEMATOCRIT 27.3 % (37-47); MEAN CORPUSCULAR HGB 25.9 PG (27.0-31.0); MEAN CORPUSCULAR VOLUME 81.9 FL (81.0-99.0); MEAN PLATELET VOLUME 9.7 FL (7.4-10.4); RBC DISTRIBUTION WIDTH 21.3 % (11.5-14.5); RED BLOOD CELL CT 3.33 /CUMM (4.20-5.40); WHITE BLOOD CELL COUNT 6.3 /CUMM (4.8-10.8)
[2017-10-28 08:15] LABS: PLATELET COUNT 579 /CUMM (130-400)
[2017-10-28] MEDS ORDERED: SODIUM BICARBO325 M1 PO ×3 (08:31→11:12)
[2017-10-28] MEDS ORDERED: FERROUS SULFAT325 M2 PO (10:39)
--- NOTE | 2017-10-28 11:38 | PN- Nephrology ---
Assessment/Plan Nephrology Assessment: 1. Hyperkalemia: Predominantly due to pseudohyperkalemia thrombocytosis. May also have a mild tendency for true hyperkalemia from T4 RTA. --> low K+ diet 2. met acidosis: suspect T4 RTA. continue sodium bicarb 650 mg po tid 3. CKD stage 3: Suspect due to DM & mild chronic rt hydro. This mild right hydro has been longstanding so intervention may not provide any additional renal benefit. Suggestion: as above I offered pt to f/up with me in my office in [place], however, logistically this would be difficult for her and she would prefer to be followed by her PMD in [place]. I asked the primary team to call her PMD to arrange for f/up Subjective Subjective: no acute events feels well plasma K 4.4 on wednesday when serum K was 6.0. Review of Systems: no fever/chills no sob/chest pain Objective Vital Signs and I&Os Vital Signs Date Time Temp Pulse Resp B/P B/P Pulse O2 O2 Flow FiO2 Mean Ox Delivery Rate 10/28 0545 98.2 82 20 122/60 98 Room Air 10/27 2309 98.2 87 18 120/78 97 Room Air 10/27 1439 98.2 70 20 122/58 98 Room Air Intake & Output 10/28 1600 10/28 0400 10/27 1600 10/27 0400 10/26 1600 10/26 0400 Intake Total 320 200 304 100 8739 480 Output Total Balance 320 200 089 708 9838 480 Intake, IV 110 Intake, Oral 320 200 300 628 1311 480 Number 2 1 0 Bowel Movements Patient 116 lb 116 lb 123 lb 123 lb Weight Weight Bed scale Bed scale Bed scale Measurement Method Physical Exam: nad ctab S1 S2 soft NT no louise no edema Current Medications: Current Medications Sig/Tevin Start time Last Medication Dose Route Stop Time Status Admin Bisacodyl 5 MG DAILY PRN 10/25 1845 AC 10/26 PO 0909 Escitalopram Oxalate 5 MG DAILY 10/26 899 AC 10/28 PO 0821 Ferrous Sulfate 325 MG TID 10/26 1400 AC 10/28 PO 0821 Insulin Aspart 0 TIDAC 10/26 08 AC 10/28 SC 0820 Insulin Detemir 24 UNITS DAILY 10/27 09 AC 10/28 SC 0821 Melatonin 5 MG AT BEDTIME 10/25 2200 AC 10/27 PO 2109 Omeprazole 40 MG DAILY AC 10/26 0700 AC 10/28 PO 0646 Sodium Bicarbonate 650 MG TID 10/26 1400 AC 10/28 PO 0821 Results Pertinent Lab Results: Laboratory Tests 10/28 10/27 0640 1000 Chemistry Sodium (137 - 145 mmol/L) 138 Potassium (3.5 - 5.1 mmol/L) 5.2 H Plasma Potassium (3.4 - 4.4 MMOL/L) 4.7 H 4.4 Chloride (98 - 107 mmol/L) 107 Carbon Dioxide (22 - 30 mmol/L) 22 Anion Gap (5 - 16) 8 BUN (7 - 17 mg/dL) 18 H Creatinine (0.5 - 1.0 mg/dL) 1.2 H Estimated GFR (>60 ml/min) 43 L BUN/Creatinine Ratio (7 - 25 %) 15.0 Hematology CBC w Diff NO MAN DIFF REQ WBC (4.8 - 10.8 /CUMM) 6.3 RBC (4.20 - 5.40 /CUMM) 3.33 L Hgb (12.0 - 16.0 G/DL) 8.6 L Hct (37 - 47 %) 27.3 L MCV (81.0 - 99.0 FL) 81.9 MCH (27.0 - 31.0 PG) 25.9 L MCHC (33.0 - 37.0 G/DL) 31.6 L RDW (11.5 - 14.5 %) 21.3 H Plt Count (130 - 400 /CUMM) 579 H MPV (7.4 - 10.4 FL) 9.7 Gran % (42.2 - 75.2 %) 67.7 Lymphocytes % (20.5 - 51.1 %) 18.8 L Monocytes % (1.7 - 9.3 %) 8.9 Eosinophils % (0 - 5 %) 4.2 Basophils % (0.0 - 2.0 %) 0.4 Absolute Granulocytes (1.4 - 6.5 /CUMM) 4.2 Absolute Lymphocytes (1.2 - 3.4 /CUMM) 1.2 Absolute Monocytes (0.10 - 0.60 /CUMM) 0.6 Absolute Eosinophils (0.0 - 0.7 /CUMM) 0.3 Absolute Basophils (0.0 - 0.2 /CUMM) 0 10/27 10/26 10/26 0626 1411 1411 Chemistry Sodium (137 - 145 mmol/L) 140 142 Potassium (3.5 - 5.1 mmol/L) 4.9 5.4 H Plasma Potassium (3.4 - 4.4 MMOL/L) 4.6 H Chloride (98 - 107 mmol/L) 108 H 110 H Carbon Dioxide (22 - 30 mmol/L) 23 19 L Anion Gap (5 - 16) 9 13 BUN (7 - 17 mg/dL) 17 19 H Creatinine (0.5 - 1.0 mg/dL) 1.0 1.2 H Estimated GFR (>60 ml/min) 53 L 43 L BUN/Creatinine Ratio (7 - 25 %) 17.0 15.8 Hematology CBC w Diff NO MAN DIFF REQ WBC (4.8 - 10.8 /CUMM) 5.1 RBC (4.20 - 5.40 /CUMM) 3.22 L Hgb (12.0 - 16.0 G/DL) 8.3 L Hct (37 - 47 %) 26.5 L MCV (81.0 - 99.0 FL) 82.2 MCH (27.0 - 31.0 PG) 25.6 L MCHC (33.0 - 37.0 G/DL) 31.2 L RDW (11.5 - 14.5 %) 21.5 H Plt Count (130 - 400 /CUMM) 586 H MPV (7.4 - 10.4 FL) 9.6 Gran % (42.2 - 75.2 %) 62.3 Lymphocytes % (20.5 - 51.1 %) 21.5 Monocytes % (1.7 - 9.3 %) 8.4 Eosinophils % (0 - 5 %) 5.2 H Basophils % (0.0 - 2.0 %) 2.6 H Absolute Granulocytes (1.4 - 6.5 /CUMM) 3.2 Absolute Lymphocytes (1.2 - 3.4 /CUMM) 1.1 L Absolute Monocytes (0.10 - 0.60 /CUMM) 0.4 Absolute Eosinophils (0.0 - 0.7 /CUMM) 0.3 Absolute Basophils (0.0 - 0.2 /CUMM) 0.1 10/26 10/26 1310 0658 Chemistry Sodium (137 - 145 mmol/L) 140 Potassium (3.5 - 5.1 mmol/L) 6.1 *H Chloride (98 - 107 mmol/L) 112 H Carbon Dioxide (22 - 30 mmol/L) 19 L Anion Gap (5 - 16) 10 BUN (7 - 17 mg/dL) 18 H Creatinine (0.5 - 1.0 mg/dL) 1.1 H Estimated GFR (>60 ml/min) 48 L BUN/Creatinine Ratio (7 - 25 %) 16.4 Hematology CBC w Diff NO MAN DIFF REQ WBC (4.8 - 10.8 /CUMM) 7.3 RBC (4.20 - 5.40 /CUMM) 3.36 L Hgb (12.0 - 16.0 G/DL) 8.7 L Hct (37 - 47 %) 27.7 L MCV (81.0 - 99.0 FL) 82.6 MCH (27.0 - 31.0 PG) 25.9 L MCHC (33.0 - 37.0 G/DL) 31.3 L RDW (11.5 - 14.5 %) 21.3 H Plt Count (130 - 400 /CUMM) 632 H MPV (7.4 - 10.4 FL) 9.8 Gran % (42.2 - 75.2 %) 71.4 Lymphocytes % (20.5 - 51.1 %) 15.1 L Monocytes % (1.7 - 9.3 %) 7.9 Eosinophils % (0 - 5 %) 5.6 H Basophils % (0.0 - 2.0 %) 0 Absolute Granulocytes (1.4 - 6.5 /CUMM) 5.2 Absolute Lymphocytes (1.2 - 3.4 /CUMM) 1.1 L Absolute Monocytes (0.10 - 0.60 /CUMM) 0.6 Absolute Eosinophils (0.0 - 0.7 /CUMM) 0.4 Absolute Basophils (0.0 - 0.2 /CUMM) 0 Urines Urine Color (YEL,AMB,STR) YEL Urine Clarity (CLEAR) HAZY H Urine pH (5.0 - 8.0) 6.5 Ur Specific [place] (1.001 - 1.035) 1.015 Urine Protein (NEG,<30 MG/DL) TRACE H Urine Ketones (NEG) NEG Urine Nitrite (NEG) NEG Urine Bilirubin (NEG) NEG Urine Urobilinogen (0.1 - 1.0 EU/dl) 0.2 Ur Leukocyte Esterase (NEG) SMALL H Ur Microscopic SEDIMENT EXAMINED Urine RBC (0 - 5 /HPF) 50-75 H Urine WBC (0 - 2 /HPF) 10-15 H Urine Hemoglobin (NEG) LARGE H Urine Glucose (N MG/DL) >=1000 H 10/25 10/25 2200 1424 Chemistry Sodium (137 - 145 mmol/L) 143 Potassium (3.5 - 5.1 mmol/L) 6.0 *H 6.0 *H Chloride (98 - 107 mmol/L) 110 H Carbon Dioxide (22 - 30 mmol/L) 20 L Anion Gap (5 - 16) 14 BUN (7 - 17 mg/dL) 22 H Creatinine (0.5 - 1.0 mg/dL) 1.3 H Estimated GFR (>60 ml/min) 39 L BUN/Creatinine Ratio (7 - 25 %) 16.9 Glucose (65 - 99 mg/dL) 65 Calcium (8.4 - 10.2 mg/dL) 8.6 Magnesium (1.6 - 2.3 mg/dL) 2.3 Total Bilirubin (0.2 - 1.3 mg/dL) 0.3 AST (14 - 36 U/L) 19 ALT (9 - 52 U/L) 26 Alkaline Phosphatase (<127 U/L) 142 H Troponin I (< 0.11 ng/ml) < 0.01 Total Protein (6.3 - 8.2 g/dL) 6.9 Albumin (3.5 - 5.0 g/dL) 3.2 L Globulin (1.9 - 4.2 gm/dL) 3.7 Albumin/Globulin Ratio (1.1 - 2.2 %) 0.9 L Hematology CBC w Diff MAN DIFF ORDERED WBC (4.8 - 10.8 /CUMM) 7.1 RBC (4.20 - 5.40 /CUMM) 3.87 L Hgb (12.0 - 16.0 G/DL) 10.0 L Hct (37 - 47 %) 31.3 L MCV (81.0 - 99.0 FL) 80.9 L MCH (27.0 - 31.0 PG) 26.0 L MCHC (33.0 - 37.0 G/DL) 32.1 L RDW (11.5 - 14.5 %) 20.2 H Plt Count (130 - 400 /CUMM) 723 H MPV (7.4 - 10.4 FL) 8.7 Segmented Neutrophils (42.2 - 75.2 %) 65 Band Neutrophils (0.0 - 5.0 %) 2 Lymphocytes (20.5 - 51.1 %) 24 Monocytes (1.7 - 9.3 %) 3 Eosinophils (0 - 5.0 %) 6 H Platelet Estimate (ADEQUATE) INCREASED Hypochromic-Microcytic 1+ Poikilocytosis 1+ Anisocytosis 1+
[2017-10-28] MEDS ORDERED: NOVOLOG100 UNIT/2 SC (12:19)
[2017-10-28] MEDS ORDERED: TOUJEO SOL300 UNIT/1 SC (12:20)
== END 2017-10-28 14:35 | disposition home health service (06) | DRG 699 ==
LOC: ERH 13:57 → 1NO 16:32 → ERHI 16:32 → ENRESERV 17:55 → ENTRNSPT 18:31 → EDTRNSPT 18:37 → EDTRNSPTSTS 18:37 → 1NO 18:40 → CMPTRNSPT 18:58 → 1NO 10-26 08:41 → ENPENDDIS 10-28 12:24 → ENTRNSPT 10-28 14:28 → EDTRNSPTSTS 10-28 14:30 → EDTRNSPT 10-28 14:30 → 1NO 10-28 14:35 → CMPTRNSPT 10-28 14:35
PROVIDERS: Emergency Medicine; Internal Medicine
DX: N25.89 Other disorders resulting from impaired renal tubular function (principal); E87.2 Acidosis; E87.5 Hyperkalemia; N18.3 Chronic kidney disease, stage 3 (moderate); E87.8 Other disorders of electrolyte and fluid balance, not elsewhere classified; F32.9 Major depressive disorder, single episode, unspecified; N13.30 Unspecified hydronephrosis; E11.22 Type 2 diabetes mellitus with diabetic chronic kidney disease; Z79.4 Long term (current) use of insulin; R32 Unspecified urinary incontinence; K90.0 Celiac disease; Z66 Do not resuscitate; N32.81 Overactive bladder; D50.9 Iron deficiency anemia, unspecified; K21.9 Gastro-esophageal reflux disease without esophagitis; Z87.81 Personal history of (healed) traumatic fracture; Z90.710 Acquired absence of both cervix and uterus; Z87.891 Personal history of nicotine dependence
CPT/HCPCS: 1NP; 36415; 36592; 81001; 82436; 87086; 87449; 87450; 93005; 93010; 97110-GO; 97116-GO; 97161-GP; 97530-GO; 99291; J0610; J1644; J1815

== ENCOUNTER 2017-11-05 10:20 | Observation (INO) | payer OTHER ==
[~2017-11-05] VITALS: Ht 165.1 cm; Wt 51.9 kg
[~2017-11-05 10:20] MED LIST changes: +SODIUM BICARBO325 M1 PO
[2017-11-05 11:02] LABS: MEAN CORPUSCULAR HGB 26.5 PG (27.0-31.0)
[2017-11-05 11:13] LABS: HEMATOCRIT 33.4 % (37-47); MEAN CORPUSCULAR HGB CONC 31.8 G/DL (33.0-37.0); MEAN CORPUSCULAR VOLUME 83.4 FL (81.0-99.0); MEAN PLATELET VOLUME 9.3 FL (7.4-10.4); PLATELET COUNT 409 /CUMM (130-400); RBC DISTRIBUTION WIDTH 22.3 % (11.5-14.5); RED BLOOD CELL CT 4.01 /CUMM (4.20-5.40); WHITE BLOOD CELL COUNT 5.9 /CUMM (4.8-10.8)
--- NOTE | 2017-11-05 13:46 | History & Physical ---
Vincent Sunshine 11/05/17 1346: General Information and HPI MD Statement: I have seen and personally examined ANDERS RICH and documented this H&P. The patient is a 82 year old F who presented with a patient stated chief complaint of [hyperkalemia]. Source of Information: patient Exam Limitations: no limitations History of Present Illness: Patient is an 82-year-old female with past medical history of diabetes mellitus on insulin, presenting to the emergency department on referral from her primary care provider after lab test results showed hyperkalemia. She is known to the service, was recently discharged on October 28 of this year after being seen for a similar complaint. The patient is complaining only of fatigue, but denies any other associated symptoms apart from occasional headache. Specifically the patient denies diarrhea, cramping, palpitations, chest pain, shortness of breath. The does report a pressure-like feeling in her lower abdomen when falling asleep for the past week, but she has a history of hysterectomy and this sensation resolves when she falls asleep. Patient denies any changes in urination, bowel movements, appetite or night sweats. Allergies/Medications Allergies: Coded Allergies: No Known Allergies (10/25/17) Compliance With Home Meds: FAIR Past History Travel History Traveled to [place] past 21 day No Medical History Neurological: NONE (memory issues) EENT: NONE Cardiovascular: NONE Respiratory: NONE Gastrointestinal: CELIAC DISEASE Hepatic: NONE Renal: UTI'S Musculoskeletal: R HIP FX Psychiatric: NONE Endocrine: IDDM Blood Disorders: ITP Cancer(s): NONE MULE DEVELOPER/Reproductive: NONE (vag hyst for prolapse) History of MRSA: No History of VRE: No History of CDIFF: No Surgical History Surgical History: hysterectomy, status post right hip ORIF 2 years prior to admission s/p right foot surgery Past Family/Social History Family History Relations & Conditions if any MOTHER (Diabetes). SISTER (diabetes). DAUGHTER (Diabetes). Psychosocial History Where do you live? Home Who Do You Live With? self Services at Home: Home Health Aide Primary Language: Slovenian Smoking Status: Former Smoker ETOH Use: denies use Illicit Drug Use: denies illicit drug use Living Will? yes Power of Web Press Operator Helper Offset/HCP? yes Name of POA/HCP: Rolan Rich Functional Ability ADLs Independent: dressing, bathing. Needs Assist: eating, toileting. Ambulation: walker IADLs Independent: finances, telephone. Needs Assist: shopping, housework, food prep, transportation, medication admin. Review of Systems Review of Systems Constitutional: Denies: chills, diaphoresis, fever. Cardiovascular: Denies: chest pain, edema, palpitations, peripheral edema. Respiratory: Denies: cough, short of breath, wheezing. GI: Denies: abdominal pain, diarrhea, nausea, changes in stool, vomiting. Genitourinary: Denies: dysuria, frequency, hesitation, nocturia, pain, urgency. Post Menopausal: Yes Exam & Diagnostic Data Last 24 Hrs of Vital Signs/I&O Vital Signs Date Time Temp Pulse Resp B/P B/P Pulse O2 O2 Flow FiO2 Mean Ox Delivery Rate 11/05 1627 98.1 75 18 130/78 98 11/05 1450 97.9 78 18 123/71 98 Room Air Room Air 11/05 1446 98 Room Air Room Air 11/05 1136 100 Room Air Room Air 11/05 1134 123 18 126/60 100 Room Air Room Air 11/05 1029 98.3 67 16 110/56 96 Room Air Intake & Output 11/05 1600 11/05 0800 11/05 0000 Intake Total 1100 Output Total Balance 1100 Intake, IV 1100 Patient 53.977 kg Weight Weight Reported by Patient Measurement Method Physical Exam General Appearance Alert, Oriented X3, Cooperative, No Acute Distress HEENT Atraumatic, PERRLA, EOMI Neck Supple, No JVD, No thryomegaly, +2 Carotid Pulse wo Bruit Cardiovascular Regular Rate, Normal S1, Normal S2, No Murmurs Lungs Clear to Auscultation Neurological Normal Gait, Normal Speech, Sensation Intact, 5/5 strength in BUE, 4/5 in BLE Extremities No Edema, Normal Pulses Last 24 Hrs of Labs/Emmanuel: Laboratory Tests 11/05/17 1655: Sodium Pending, Potassium Pending, Chloride Pending, Carbon Dioxide Pending, Anion Gap Pending, BUN Pending, Creatinine Pending, BUN/Creatinine Ratio Pending 11/05/17 1415: Plasma Potassium 5.5 H 11/05/17 1047: Anion Gap 12, Estimated GFR 39 L, BUN/Creatinine Ratio 18.5, Glucose 260 H, Calcium 8.7, Phosphorus 4.5, Magnesium 2.5 H, Creatine Kinase 38, CBC w Diff MAN DIFF ORDERED, RBC 4.01 L, MCV 83.4, MCH 26.5 L, MCHC 31.8 L, RDW 22.3 H, MPV 9.3, Segmented Neutrophils 65, Lymphocytes 25, Monocytes 5, Eosinophils 2, Basophils 3 H, Platelet Estimate ADEQUATE, Hypochromic-Microcytic 2+, Poikilocytosis 2+, Anisocytosis 1+ 11/05/17 1029: Creatine Kinase Cancelled Assessment/Plan Assessment: Patient is an 82-year-old female with history of insulin-dependent diabetes mellitus presenting with hyperkalemia associated with acute EKG changes. 1. Hyperkalemia 2. Insulin-dependent diabetes mellitus As Ranked By This Provider Problem List: 1. Hyperkalemia 2. Acute electrocardiogram changes 3. IDDM (insulin dependent diabetes mellitus) Core Measures/Misc (01/10) Sepsis (View protocol) Sepsis Present: No If YES complete Sepsis Event Note If YES complete Sepsis Event Note Zulema Man MD 11/05/17 1358: General Information and HPI Allergies/Medications Home Med list Bisacodyl 5 MG TABLET.DR 5 MG PO DAILY PRN CONSTIPATION . Escitalopram Oxalate 5 MG TABLET 1 TAB PO DAILY DEPRESSION (Reported) Ferrous Sulfate 325 MG (65 MG IRON) TABLET.DR 325 MG PO TID ANEMIA . Insulin Aspart (Novolog) 100 UNIT/ML VIAL 1 SC TIDAC DIABETES (Reported) Insulin Glargine,Hum.rec.anlog (Toujeo Solostar) 300 UNIT/ML (1.5 ML) INSULN.PEN 24 SC DAILY DIABETES (Reported) Nystatin 100,000 UNIT/GRAM CREAM..G. 1 MARLYS TOP BID RASH . Omeprazole 20 MG CAPSULE.DR 40 MG PO DAILY AC GASTRITIS . Patiromer Calcium Sorbitex (Veltassa) 8.4 GRAM POWD.PACK 1 POW PO DAILY HIGH POTASSIUM . Sodium Bicarbonate 325 MG TABLET 650 MG PO TID kidney take two tabs in morning and one in evening. OR you can take one tab in morning, one in afternoon, one at night Core Measures/Misc (01/10) Acute Coronary Syndrome ACS Diagnosis: No Congestive Heart Failure Congestive Heart Failure Diagnosis No Cerebrovascular Accident CVA/TIA Diagnosis: No VTE (View Protocol) VTE Risk Factors Age>40 No Mechanical VTE Prophylaxis d/t Other No VTE Pharm Prophylaxis d/t Medical Contraindication Sepsis (View protocol) Sepsis Present: No If YES complete Sepsis Event Note If YES complete Sepsis Event Note Resident Review Statement Resident Statement: examined this patient, discussed with pr internship, agreed with pr internship, reviewed EMR data (avail), discussed with nursing, discussed with case mgmt Other Findings: 82-year-old woman with a history of diabetes, celiac disease, right-sided hydroureteronephrosis, iron deficiency anemia with reactive thrombocytosis, recurrent urinary tract infections h/o sepsis of urologic origin secondary to E. coli and MRSA, recently admitted to [facility] from 10/11/17-10/17/17 for UTI and treated with IV ceftriaxone and discharged on ciprofloxin which she completed. Patient again was admitted on 25 October for hyperkalemia. This time patient was referred by her primary care physician with the high potassium level yesterday. But patient decided to stay home overnight and she brought herself to the ER today morning. Patient denies any new medications, chest pain, palpitations, abdominal pain, nausea, vomiting, diarrhea, constipation. She denies change in that diet/medication after she got discharged from here. Patient did follow with the plow shaker as suggested last admission. Otherwise patient has been eating and drinking well. At baseline patient uses walker/wheelchair at home. She has 24 hour aide at home. Admission vitals-98.3, pulse rate 123, respiratory rate 18, blood pressure 126/ 60, saturating 100 Admission labs WBC 5.9, hemoglobin 10.6, platelet count 409 with 3 basophils, sodium 136, potassium 6.7, BUN 24, creatinine 1.3,, magnesium 2.5, glucose 260. ED treatment Calcium gluconate 1 g, normal saline bolus 500, Regular Insulin On examination patient conscious, well oriented 3. No acute distress CVS-S1-S2 RS-normal vesicular breath sounds Abdomen-soft no organomegaly VICE PRESIDENT OF NEWS-cranial nerves III through XII intact - Assessment/plan: Problem list: Hyperkalemia IDDM CKD stage III stable depression-Lexapro Hyperkalemia Patient again got admitted for laboratory evidence of hyperkalemia with no symptoms. Her EKG shows peaked T waves. Last time when patient was admitted here heparin was stopped in view of hyperkalemia. Patient got calcium gluconate , insulin in the ED. We will repeat BP at 5 PM. Plasma potassium level is 5.5. Her hyperkalemia is secondary due to CKD/diabetes/RTA type IV. Nephrology is on board. Her echocardiogram done last month showed an ejection fraction of 60% with no regional wall motion abnormality. He for repeat potassium at 5 PM goes more than 6 we will give Kayexalate. IDDM accucheck, sliding scale insulin, Levemir 24 units in the morning. CKD stage III Stable her BUN is 24 and creatinine is 1.3. Depression Continue Lexapro DVT-Alps no heparin in view of hyperkalemia DNR/DNI Josse Alba MD 11/05/17 1633: Core Measures/Misc (01/10) Sepsis (View protocol) If YES complete Sepsis Event Note If YES complete Sepsis Event Note Attending MD Review Statement Attending Statement Attending MD Statement: examined this patient, discuss w/resident/PA/SENIOR JAVA WEB DEVELOPER, agreed w/resident/PA/SENIOR JAVA WEB DEVELOPER, reviewed EMR data (avail), discussed with nursing, amended to note Attending Assessment/Plan: Patient seen and examined. Recently discharged after being managed for hyperkalemia. She was seen by nephrology service then and found to have a component of Renal Tubular Acidosis. She reports having routine labs done as an out-pt and was sent to the ER for elevated potassium levels. She denies any symptoms but was noted to have peaked T waves in the ED. She was given calcium gluconate and kayexelate ordered then refered to the hospitalist service. She significant findings on exam. Plan: Place on observation level of care. PLasma K level is 5.5. Administer the dose of kayexelate ordered. Nephrology consultation. Potassium restricted diet. Begin patient on sodium bicarbonate 650mg three times a daily.
--- NOTE | 2017-11-05 13:51 | ED GENERAL ADULT ---
History of Present Illness General Chief Complaint: General Adult Stated Complaint: HIGH POTASSIUM Source: patient Exam Limitations: no limitations Vital Signs & Intake/Output Vital Signs & Intake/Output Vital Signs Date Time Temp Pulse Resp B/P B/P Pulse O2 O2 Flow FiO2 Mean Ox Delivery Rate 11/06 1517 98.3 74 18 110/60 95 11/06 0714 98.0 92 18 100/60 97 Room Air 11/05 2204 98.3 92 22 110/72 97 ED Intake and Output 11/06 0000 11/05 1200 Intake Total 220 1100 Output Total Balance 220 1100 Intake, IV 1100 Intake, Oral 220 Patient 111 lb 119 lb Weight Weight Reported by Patient Measurement Method Allergies Coded Allergies: No Known Allergies (10/25/17) Reconcile Medications Bisacodyl 5 MG TABLET.DR 5 MG PO DAILY PRN CONSTIPATION . Escitalopram Oxalate 5 MG TABLET 1 TAB PO DAILY DEPRESSION (Reported) Ferrous Sulfate 325 MG (65 MG IRON) TABLET.DR 325 MG PO TID ANEMIA . Insulin Aspart (Novolog) 100 UNIT/ML VIAL 1 SC TIDAC DIABETES (Reported) Insulin Glargine,Hum.rec.anlog (Toujeo Solostar) 300 UNIT/ML (1.5 ML) INSULN.PEN 24 SC DAILY DIABETES (Reported) Nystatin 100,000 UNIT/GRAM CREAM..G. 1 MARLYS TOP BID RASH . Omeprazole 20 MG CAPSULE.DR 40 MG PO DAILY AC GASTRITIS . Sodium Bicarbonate 325 MG TABLET 650 MG PO TID kidney take two tabs in morning and one in evening. OR you can take one tab in morning, one in afternoon, one at night Triage Note: PT BIBA FROM HOME.. PT STATE THAT HER DOCTOR CALLED HER LAST NIGHT S/P BLOOD WORK AND TOLD HER TO COME TO THE ER FOR POTASSIUM 6.7. PT STATES SHE DID NOT WANT TO COME IN LAST NIGHT AND WAITED UNTIL TODAY. PT HAS NO COMPLAINTS. Triage Nurses Notes Reviewed? yes Onset: Abrupt Duration: day(s): Timing: constant HPI: 82-year-old female with a history of ITP, celiac disease, previous right hip fracture sent in for hyperkalemia to 6.7 found on outpatient labs yesterday. Patient was informed to present to the emergency department yesterday, but did not present until today. Reports that she has had recurrent hyperkalemia in the past requiring multiple admissions, but that no etiology has been found. Denies chest pain, shortness of breath, palpitations. Patient reports that she feels in her usual state of health and has no complaints. (Kika David) Past History Travel History Traveled to [place] past 21 day No Medical History Any Pertinent Medical History? 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 SISTER (diabetes). DAUGHTER (Diabetes). Hx Contributory? No (Kika David) Review of Systems Review of Systems Constitutional: Reports: no symptoms. EENTM: Reports: no symptoms. Respiratory: Reports: no symptoms. Cardiovascular: Reports: no symptoms. GI: Reports: no symptoms. Genitourinary: Reports: no symptoms. Musculoskeletal: Reports: no symptoms. Skin: Reports: no symptoms. Neurological/Psychological: Reports: no symptoms. Hematologic/Endocrine: Reports: no symptoms. Immunologic/Allergic: Reports: no symptoms. All Other Systems: Reviewed and Negative (Kika David) Physical Exam Physical Exam General Appearance: well developed/nourished, no apparent distress, alert, awake , comfortable Head: atraumatic, normal appearance Eyes: Bilateral: normal appearance. Neck: normal inspection Respiratory: normal breath sounds, lungs clear Cardiovascular: regular rate/rhythm Gastrointestinal: soft, non-tender Back: normal inspection Extremities: normal inspection Neurologic/Psych: awake, alert, oriented x 3, normal mood/affect Skin: intact, normal color, warm/dry Core Measures ACS in differential dx? No CVA/TIA Diagnosis: No Sepsis Present: No Sepsis Focused Exam Completed? No (Kika David) Progress Differential Diagnoses I considered the following diagnoses in my evaluation of the patient: [ Hyperkalemia versus cardiac arrhythmia versus rhabdomyolysis versus drug-induced versus renal failure] Plan of Care: Orders Procedure Date/time Status VTE Mechanical Prophylaxis 11/06 171 Complete BASIC ELECTROLYTES PLUS BUN&CR 11/06 1600 Complete Consistent Carbohydrate 1 11/05 D Active POTASSIUM 11/05 1900 Complete Current Medications Sig/Tevin Start time Last Medication Dose Stop Time Status Admin Escitalopram Oxalate 5 MG DAILY 11/06 0900 AC 11/06 (Lexapro) 0921 Insulin Detemir 24 UNITS QAM 11/06 0900 AC 11/06 (Levemir) 0920 Melatonin 5 MG AT BEDTIME 11/05 2230 AC 11/05 (Melatonin) 2245 Ferrous Sulfate 325 MG TID 11/05 2100 AC 11/06 (Feosol) 1415 Sodium Bicarbonate 650 MG TID 11/05 1707 AC 11/06 (Sodium Bicarb 325MG 1415 Tab) Insulin Aspart 0 TIDAC 11/05 1700 AC 11/05 (NovoLOG) 1617 Acetaminophen 500 MG Q6P PRN 11/05 1500 AC (Tylenol) Acetaminophen 1,000 MG Q6P PRN 11/05 1500 AC (Ofirmev) N/A 1 UNIT (No Carrier) Omeprazole 40 MG DAILY AC 11/05 1457 AC 11/06 (Prilosec) 0621 Laboratory Tests 11/06/17 1615: Anion Gap 10, Estimated GFR 39 L, BUN/Creatinine Ratio 16.9 11/06/17 0607: Anion Gap 10, Estimated GFR 43 L, BUN/Creatinine Ratio 20.0, CBC w Diff NO MAN DIFF REQ, RBC 3.61 L, MCV 84.3, MCH 26.7 L, MCHC 31.7 L, RDW 23.0 H, MPV 10.3, Gran % 51.5, Lymphocytes % 31.0, Monocytes % 10.8 H, Eosinophils % 5.6 H , Basophils % 1.1, Absolute Granulocytes 3.0, Absolute Lymphocytes 1.8, Absolute Monocytes 0.6, Absolute Eosinophils 0.3, Absolute Basophils 0.1 11/05/171944: Sodium Cancelled, Potassium Cancelled, Chloride Cancelled, Carbon Dioxide Cancelled, Anion Gap Cancelled, BUN Cancelled, Creatinine Cancelled, BUN/ Creatinine Ratio Cancelled 11/05/171929: Patient given calcium gluconate while awaiting lab results. Labs showed potassium 6.7, was given 10 units of regular insulin. EKG shows mild changes with slightly peaked T waves. Discussed with hospitalist and will admit to telemetry. Initial ED EKG: NSR, Mild peaked T waves in anterior leads (Kika David) Departure Departure Disposition: STILL A PATIENT Condition: Stable Clinical Impression Primary Impression: Hyperkalemia Referrals: Lisa Poe DO (PCP/Family) Departure Forms: Customer Survey General Discharge Information Observation Note Spoke With: Imtiaz KING,Norma Physician Advisor Notified: LIZBET KING,ANDREZ Hamilton (per case management) Place Patient In: Non-ED OBS Care Area Rationale for Observation: My rational for observation is as follows [serial BMPs, hyperkalemia treatment, hemodynamic monitoring, serial EKGs]. (Kika David) PA/COMPUTER SYSTEM VALIDATION SPECIALIST Co-Sign Statement Statement: ED Attending supervision documentation- [X] I saw and evaluated the patient. I have also reviewed all the pertinent lab results and diagnostic results. I agree with the findings and the plan of care as documented in the PA's/COMPUTER SYSTEM VALIDATION SPECIALIST's documentation. Patient presents for evaluation of an elevated potassium level, she has a known history of episodic hyperkalemia. Physical examination reveals a nonfocal neurologic examination. [] I have reviewed the ED Record and agree with the PA's/COMPUTER SYSTEM VALIDATION SPECIALIST's documentation. [] Additions or exceptions (if any) to the PAs/COMPUTER SYSTEM VALIDATION SPECIALIST's note and plan are summarized below: [] (Marilyn KING,Jamie Neal) Critical Care Note Critical Care Note Critical Care Time: 30-74 min (Kika David) PA/COMPUTER SYSTEM VALIDATION SPECIALIST Co-Sign Statement Statement: ED Attending supervision documentation- [X] I saw and evaluated the patient. I have also reviewed all the pertinent lab results and diagnostic results. I agree with the findings and the plan of care as documented in the PA's/COMPUTER SYSTEM VALIDATION SPECIALIST's documentation. [] I have reviewed the ED Record and agree with the PA's/COMPUTER SYSTEM VALIDATION SPECIALIST's documentation. [] Additions or exceptions (if any) to the PAs/COMPUTER SYSTEM VALIDATION SPECIALIST's note and plan are summarized below: [] (Jamie Sanders MD) Critical Care Note Critical Care Note Critical Care Time: 30-74 min (Kika David)
--- NOTE | 2017-11-05 15:53 | Patient Discharge Instructions ---
Discharge Instructions General Discharge Information You were seen/treated for: Hyperkalemia Watch for these problems: If you experience palpitations, chest pain, cramping, nausea, diarrhea, difficulty breathing, please go to your nearest emergency department Special Instructions: Please follow up with your primary care doctor and beeswax bleacher about your recent hospitalization. plz do BEP,CBC,PLASMA POTASSIUM IN 1 WEEK AND F/U WITH PCP Diet Continue normal diet: Yes Activity Full Activity/No Limits: No Activity Self Limited: Yes Acute Coronary Syndrome Inclusion Criteria At DC or during hospital stay patient has or had the following: ACS DIAGNOSIS No Discharge Core Measures Meds if any: Prescribed or Continued at Discharge Meds if any: NOT Prescribed or Continued at Discharge Congestive Heart Failure Inclusion Criteria At DC or during hospital stay patient has or had the following: CHF DIAGNOSIS No Discharge Core Measures Meds if any: Prescribed or Continued at Discharge Meds if any: NOT Prescribed or Continued at Discharge Cerebrovascular accident Inclusion Criteria At DC or during hospital stay patient has or had the following: CVA/TIA Diagnosis No Discharge Core Measures Meds if any: Prescribed or Continued at Discharge Meds if any: NOT Prescribed or Continued at Discharge Venous thromboembolism Inclusion Criteria VTE Diagnosis No VTE Type NONE VTE Confirmed by (Test) NONE Discharge Core Measures - Per Current guidelines, there needs to be overlap - treatment for the first 5 days of Warfarin therapy. - If discharged on Warfarin prior to 5 days of - overlap therapy, the patient will need to be - assessed for post discharge needs including - *Post discharge parental anticoagulation - *Warfarin and/or parental anticoagulation education - *Follow up date to check INR post discharge At least 5 days overlap therapy as Inpatient No (Pt not on coumadin) Meds if any: Prescribed or Continued at Discharge Note: Overlap Therapy is Warfarin and Anticoagulant Meds if any: NOT Prescribed or Continued at Discharge
[2017-11-05 16:27] VITALS: BP 130/78
--- NOTE | 2017-11-05 16:55 | PN- Nephrology ---
Assessment/Plan Nephrology Assessment: Error Suggestion: Error Subjective Subjective: Error Objective Vital Signs and I&Os Vital Signs Date Time Temp Pulse Resp B/P B/P Pulse O2 O2 Flow FiO2 Mean Ox Delivery Rate 11/06 713 98.0 92 18 100/60 97 Room Air 11/05 2204 98.3 92 22 110/72 97 11/05 1627 98.1 75 18 130/78 98 11/05 1450 97.9 78 18 123/71 98 Room Air Room Air 11/05 1446 98 Room Air Room Air Intake & Output 11/06 0400 11/05 0400 11/04 0400 Intake Total 580 000 3038 Output Total Balance 171 825 4738 Intake, IV 1100 Intake, Oral 220 220 Patient 111 lb 119 lb Weight Weight Reported by Patient Measurement Method Physical Exam: Error Results Pertinent Lab Results: Laboratory Tests 11/06 11/05 11/05 0607 1945 1930 Chemistry Sodium (137 - 145 mmol/L) 139 Cancelled Potassium (3.5 - 5.1 mmol/L) 5.9 H Cancelled 5.6 H Chloride (98 - 107 mmol/L) 107 Cancelled Carbon Dioxide (22 - 30 mmol/L) 22 Cancelled Anion Gap (5 - 16) 10 Cancelled BUN (7 - 17 mg/dL) 24 H Cancelled Creatinine (0.5 - 1.0 mg/dL) 1.2 H Cancelled Estimated GFR (>60 ml/min) 43 L BUN/Creatinine Ratio (7 - 25 %) 20.0 Cancelled Hematology CBC w Diff NO MAN DIFF REQ WBC (4.8 - 10.8 /CUMM) 5.7 RBC (4.20 - 5.40 /CUMM) 3.61 L Hgb (12.0 - 16.0 G/DL) 9.7 L Hct (37 - 47 %) 30.5 L MCV (81.0 - 99.0 FL) 84.3 MCH (27.0 - 31.0 PG) 26.7 L MCHC (33.0 - 37.0 G/DL) 31.7 L RDW (11.5 - 14.5 %) 23.0 H Plt Count (130 - 400 /CUMM) 337 MPV (7.4 - 10.4 FL) 10.3 Gran % (42.2 - 75.2 %) 51.5 Lymphocytes % (20.5 - 51.1 %) 31.0 Monocytes % (1.7 - 9.3 %) 10.8 H Eosinophils % (0 - 5 %) 5.6 H Basophils % (0.0 - 2.0 %) 1.1 Absolute Granulocytes (1.4 - 6.5 /CUMM) 3.0 Absolute Lymphocytes (1.2 - 3.4 /CUMM) 1.8 Absolute Monocytes (0.10 - 0.60 /CUMM) 0.6 Absolute Eosinophils (0.0 - 0.7 /CUMM) 0.3 Absolute Basophils (0.0 - 0.2 /CUMM) 0.1 11/05 11/05 11/05 1655 1415 1047 Chemistry Sodium (137 - 145 mmol/L) 138 136 L Potassium (3.5 - 5.1 mmol/L) 6.8 *H 6.7 *H Plasma Potassium (3.4 - 4.4 MMOL/L) 5.5 H Chloride (98 - 107 mmol/L) 108 H 102 Carbon Dioxide (22 - 30 mmol/L) 19 L 22 Anion Gap (5 - 16) 10 12 BUN (7 - 17 mg/dL) 25 H 24 H Creatinine (0.5 - 1.0 mg/dL) 1.1 H 1.3 H Estimated GFR (>60 ml/min) 48 L 39 L BUN/Creatinine Ratio (7 - 25 %) 22.7 18.5 Glucose (65 - 99 mg/dL) 260 H Calcium (8.4 - 10.2 mg/dL) 8.7 Phosphorus (2.5 - 4.5 mg/dL) 4.5 Magnesium (1.6 - 2.3 mg/dL) 2.5 H Creatine Kinase (30 - 135 U/L) 38 Hematology CBC w Diff MAN DIFF ORDERED WBC (4.8 - 10.8 /CUMM) 5.9 RBC (4.20 - 5.40 /CUMM) 4.01 L Hgb (12.0 - 16.0 G/DL) 10.6 L Hct (37 - 47 %) 33.4 L MCV (81.0 - 99.0 FL) 83.4 MCH (27.0 - 31.0 PG) 26.5 L MCHC (33.0 - 37.0 G/DL) 31.8 L RDW (11.5 - 14.5 %) 22.3 H Plt Count (130 - 400 /CUMM) 409 H MPV (7.4 - 10.4 FL) 9.3 Segmented Neutrophils (42.2 - 75.2 %) 65 Lymphocytes (20.5 - 51.1 %) 25 Monocytes (1.7 - 9.3 %) 5 Eosinophils (0 - 5.0 %) 2 Basophils (0.0 - 2.0 %) 3 H Platelet Estimate (ADEQUATE) ADEQUATE Hypochromic-Microcytic 2+ Poikilocytosis 2+ Anisocytosis 1+ 11/05 1029 Chemistry Creatine Kinase Cancelled
--- NOTE | 2017-11-05 16:57 | Cons- Nephrology ---
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 Please refer to Dr. Wm Jenkins's very comprehensive and informative consult note of 10/26/17 as well as his follow-up note on 10/28. She now comes in again with severe hyperkalemia (6.7) with associated clear-cut hyperkalemic EKG changes (severely peaked T waves). On questioning, it is obvious that she has not adhered to her medication regimen or to a low potassium diet as she had been instructed at time of hospital discharge 8 days ago. Specifically, she stopped taking the sodium bicarbonate last week and she continues to enjoy a very high potassium intake with daily ingestion of bananas, orange juice and milk, as well as frequent ingestion of tomatoes and potatoes. When asked about this, she denies having been instructed on these matters. She claims to be feeling well with no symptoms. Allergies/Medications Allergies: Coded Allergies: No Known Allergies (10/25/17) Home Med List: Bisacodyl 5 MG TABLET. 5 MG PO DAILY PRN CONSTIPATION . Escitalopram Oxalate 5 MG TABLET 1 TAB PO DAILY DEPRESSION (Reported) Ferrous Sulfate 325 MG (65 MG IRON) TABLET. 325 MG PO TID ANEMIA . Insulin Aspart (Novolog) 100 UNIT/ML VIAL 1 SC TIDAC DIABETES (Reported) Insulin Glargine,Hum.rec.anlog (Toujeo Solostar) 300 UNIT/ML (1.5 ML) INSULN.PEN 24 SC DAILY DIABETES (Reported) Nystatin 100,000 UNIT/GRAM CREAM..G. 1 MARLYS TOP BID RASH . Omeprazole 20 MG CAPSULE. 40 MG PO DAILY AC GASTRITIS . Sodium Bicarbonate 325 MG TABLET 650 MG PO TID kidney take two tabs in morning and one in evening. 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 SISTER (diabetes). DAUGHTER (Diabetes). Psychosocial History Where Do You Live? Home Who Do You Live With? self Services at Home: Home Health Aide Primary Language: Irish Smoking Status: Former Smoker ETOH Use: denies use Illicit Drug Use: denies illicit drug use Living Will? yes Power of Magnetometer Operator/HCP? yes Name of POA/HCP: Rolan Rich Functional Ability ADLs Independent: dressing, bathing. Needs Assist: eating, toileting. Ambulation: walker IADLs Independent: finances, telephone. Needs Assist: shopping, housework, food prep, transportation, medication admin. Exam & Diagnostic Data Vital Signs and I&O Vital Signs Date Time Temp Pulse Resp B/P B/P Pulse O2 O2 Flow FiO2 Mean Ox Delivery Rate 11/05 1627 98.1 75 18 130/78 98 11/05 1450 97.9 78 18 123/71 98 Room Air Room Air 11/05 1446 98 Room Air Room Air 11/05 1136 100 Room Air Room Air 11/05 1134 123 18 126/60 100 Room Air Room Air 11/05 1029 98.3 67 16 110/56 96 Room Air Intake & Output 11/05 1600 11/05 0400 11/04 1600 11/04 0400 11/03 1600 11/03 0400 Intake Total 1100 Output Total Balance 1100 Intake, IV 1100 Patient 119 lb Weight Weight Reported by Patient Measurement Method Physical Exam: General: Well-developed, elderly white female in NAD Skin: No rash or jaundice, skin turgor poor HEENT: Conjunctivae pink, sclerae anicteric, mucous membranes moist Neck: Without masses or thyromegaly, no supraclavicular or cervical adenopathy Chest: Clear to P&A Heart: Regular rate and rhythm without S3 or rub Abdomen: Soft and nontender without palpable masses or organomegaly Extremities: Without cyanosis or edema Neuro: Oriented 3, no focal findings, no asterixis or myoclonus Assessment/Plan Assessment/Recommendations Assessment: 1. 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 The cause is not difficult to ascertain as she stopped her sodium bicarbonate tablets and has resumed her previously high dietary potassium intake. 2. She appears to me to be either euvolemic or slightly volume contracted as suggested by her physical exam as well as by the serum creatinine, relatively high hemoglobin (for her) and her essentially normal serum bicarbonate level of 22 -she normally runs below 20. 3. Other comorbidities as noted Recommendations: 1. Kayexalate 30 g p.o. now and repeat serum potassium this evening 2. Resume sodium bicarbonate at a dose of 650 mg p.o. 3 times daily 3. Gentle hydration with normal saline at 50 cc/h 1 L 4. Focused dietary instruction to the patient as well as all of her caregivers at home 5. Consider a geriatric or psych evaluation to assess her ability to manage her own medical care Thank you. We will follow with you.
[2017-11-05 22:04] VITALS: BP 110/72
[2017-11-06 07:14] VITALS: BP 100/60
[2017-11-06 08:45] LABS: ABSOLUTE LYMPH COUNT 1.8 /CUMM (1.2-3.4); MEAN CORPUSCULAR VOLUME 84.3 FL (81.0-99.0)
--- NOTE | 2017-11-06 09:03 | PN- Housestaff ---
Amber Morris 11/06/17 0903: Subjective Follow-up For: Hyperkalemia, EKG changes Complaints: no complaints Tele-Events Since Last Visit: NSR. HR 74-84 Subjective: no complaints/no acute events Review of Systems Constitutional: Reports: see HPI. Objective Last 24 Hrs of Vital Signs/I&O Vital Signs Date Time Temp Pulse Resp B/P B/P Pulse O2 O2 Flow FiO2 Mean Ox Delivery Rate 11/06 1517 98.3 74 18 110/60 95 11/06 0714 98.0 92 18 100/60 97 Room Air 11/05 2204 98.3 92 22 110/72 97 Intake & Output 11/06 1600 11/06 0800 11/06 0000 Intake Total 220 220 Output Total 400 Balance -400 220 220 Intake, Oral 220 220 Output, Urine 400 Patient 111 lb Weight Physical Exam General Appearance: Alert, Oriented X3, Cooperative, No Acute Distress Skin: No Rashes, No Breakdown, No Significant Lesion Skin Temp/Moisture Exam: Cool/Dry HEENT: Atraumatic Neck: Supple Cardiovascular: Regular Rate, Normal S1, Normal S2 Lungs: Clear to Auscultation, Normal Air Movement Assessment/Plan Assessment: Patient is an 82-year-old female with past medical history of diabetes mellitus on insulin, presenting to the emergency department on referral from her primary care provider after lab test results showed hyperkalemia. She is known to the service, was recently discharged on October 28 of this year after being seen for a similar complaint.PC: fatigue Vitals: Stable overnight Labs: K was 5.9 today. Problems: 1. Hyperkalemia 2. IDDM 3. EKG changes Plan: * Possible d/c tomorrw * another dose of kayexelate and recheck her K in evening * Continue sodium bicarb 650mg TID - goal bicarb >22 * NS 1 L total * PRN Kayexalate if K >6.0 * Plan to discharge on [place] 8.4g daily (can be uptitrated PRN) * As outpt repeat CBC, BEP and plasma potassium Problem List: 1. Hyperkalemia 2. Diabetes mellitus Pain Ratin Pain Location: none Pain Goal: Remain pain free Pain Plan: Follow pain pathway Tomorrow's Labs & Rationales: cbc, BEP, plasma K Nehemiah Miller 11/06/17 1649: Attending MD Review Statement Attending Statement Attending MD Statement: examined this patient, discuss w/resident/PA/SPIKE DRIVER, agreed w/resident/PA/SPIKE DRIVER, reviewed EMR data (avail), discussed with nursing, discussed with case mgmt Attending Assessment/Plan: Hyperkalemia- we will give another dose of kayexelate and recheck her K in evening. Encouraged pt to avoid fruit juices and fruits at home and counselled her about low potassium diet. if her potassium tomorrow morning is ok will dc her home tomorrow.
[2017-11-06 09:14] LABS: ABSOLUTE BASOPHIL COUNT 0.1 /CUMM (0.0-0.2); ABSOLUTE EOSINOPHIL COUNT 0.3 /CUMM (0.0-0.7); ABSOLUTE MONOCYTE COUNT 0.6 /CUMM (0.10-0.60); BASOPHIL % 1.1 % (0.0-2.0); EOSINOPHIL % 5.6 % (0-5); GRANULOCYTE % 51.5 % (42.2-75.2); HEMATOCRIT 30.5 % (37-47); MEAN CORPUSCULAR HGB 26.7 PG (27.0-31.0); MEAN CORPUSCULAR HGB CONC 31.7 G/DL (33.0-37.0); MEAN PLATELET VOLUME 10.3 FL (7.4-10.4); RED BLOOD CELL CT 3.61 /CUMM (4.20-5.40)
[2017-11-06 10:00] LABS: PLATELET COUNT 337 /CUMM (130-400); WHITE BLOOD CELL COUNT 5.7 /CUMM (4.8-10.8)
--- NOTE | 2017-11-06 14:10 | PN- Nephrology ---
Assessment/Plan Nephrology Assessment: Hyperkalemia - Type IV RTA (insulin dependent diabetic) vs pseudohyperkalemia (? thrombocytosis induced; denies significant fist clenching) - honestly a bit difficult to say given discrepancies and inconsistencies with labs including her platelets which have now normalized. What can be said is that she would certainly benefit from a low potassium diet. BP is too low to add a loop or thiazide diuretic and she is not clearly volume depleted to warrant significant IVF resuscitation - that being said, she might benefit from some more IVF as any increased tubular Na flow will lead to K loss in the urine. I think assisted she might benefit from Veltassa. Suggestion: -Continue sodium bicarb 650mg TID - goal bicarb >22 -Would give some IVF - sodium chloride OK - 1L total -PRN kayexalate if K>6.0 -Plan to discharge on Veltassa 8.4g daily (can be uptitrated PRN) Outpatient labs should include a CBC and plasma potassium along with her BMP Pt should f/u in our office in [place] (as per report, she had mentioned that this might be possible) - [phone] with ?'s Subjective Subjective: K 5.9 this AM SCr stable at 1.2 Bicarb 22 Has gotten 2 doses of kayexalate SBP 100's-120's Should note that plasma potassium was 5.5 when her serum potassium was 6.7-6.8 yesterday - she denies fist clenching for blood draw and says that it was "easy " for the obiee lead developer to get; platelets down to 337 Objective Vital Signs and I&Os Vital Signs Date Time Temp Pulse Resp B/P B/P Pulse O2 O2 Flow FiO2 Mean Ox Delivery Rate 11/06 713 98.0 92 18 100/60 97 Room Air 11/05 2204 98.3 92 22 110/72 97 11/05 1627 98.1 75 18 130/78 98 11/05 1450 97.9 78 18 123/71 98 Room Air Room Air 11/05 1446 98 Room Air Room Air Intake & Output 11/06 1600 11/06 0400 11/05 1600 11/05 0400 11/04 1600 11/04 0400 Intake Total 402 753 4042 Output Total Balance 856 681 0599 Intake, IV 1100 Intake, Oral 220 220 Patient 111 lb 119 lb Weight Weight Reported by Patient Measurement Method Physical Exam: Gen - NAD HEENT - supple CV - RRR, no m/r/g Chest - clear, no w/r/r Abd - soft, NTND Ext - warm, no edema Neuro - AOX3, grossly nonfocal Current Medications: Current Medications Sig/Tevin Start time Last Medication Dose Route Stop Time Status Admin Acetaminophen 500 MG Q6P PRN 11/05 1500 AC PO Acetaminophen 1,000 MG Q6P PRN 11/05 1500 AC N/A 1 UNIT IV Dextrose 25 GM ONCE ONE 11/05 1914 DC 11/05 IV 11/05 Escitalopram Oxalate 5 MG DAILY 11/06 0900 AC 11/06 PO 0921 Ferrous Sulfate 325 MG TID 11/05 2100 11/06 PO 0921 Heparin Sodium 5,000 UNIT Q8 11/05 1454 DC (Porcine) SC Insulin Aspart 10 UNITS ONCE ONE 11/05 1914 DC 11/05 SC 11/05 [id number] Insulin Aspart 0 TIDAC 11/05 1700 11/05 SC 1617 Insulin Detemir 24 UNITS QAM 11/06 0900 11/06 SC 0920 Insulin Detemir 24 UNITS ONCE ONE 11/05 1500 CAN SC 11/05 1501 Melatonin 5 MG AT BEDTIME 11/05 2230 AC 11/05 PO 2245 Morphine Sulfate 1 MG ONCE PRN 11/05 1500 DC IV 11/05 2100 Omeprazole 40 MG DAILY AC 11/05 1457 AC 11/06 PO 0621 Sodium Bicarbonate 650 MG TID 11/05 1707 11/06 PO 0924 Sodium Polystyrene 60 ML ONCE ONE 11/06 1130 DC 11/06 Sulfonate PO 11/06 1131 1209 Sodium Polystyrene 120 ML ONCE ONE 11/05 1600 DC 11/05 Sulfonate PO 11/05 1601 1653 Results Pertinent Lab Results: Laboratory Tests 11/06 11/05 11/05 0607 1945 1930 Chemistry Sodium (137 - 145 mmol/L) 139 Cancelled Potassium (3.5 - 5.1 mmol/L) 5.9 H Cancelled 5.6 H Chloride (98 - 107 mmol/L) 107 Cancelled Carbon Dioxide (22 - 30 mmol/L) 22 Cancelled Anion Gap (5 - 16) 10 Cancelled BUN (7 - 17 mg/dL) 24 H Cancelled Creatinine (0.5 - 1.0 mg/dL) 1.2 H Cancelled Estimated GFR (>60 ml/min) 43 L BUN/Creatinine Ratio (7 - 25 %) 20.0 Cancelled Hematology CBC w Diff NO MAN DIFF REQ WBC (4.8 - 10.8 /CUMM) 5.7 RBC (4.20 - 5.40 /CUMM) 3.61 L Hgb (12.0 - 16.0 G/DL) 9.7 L Hct (37 - 47 %) 30.5 L MCV (81.0 - 99.0 FL) 84.3 MCH (27.0 - 31.0 PG) 26.7 L MCHC (33.0 - 37.0 G/DL) 31.7 L RDW (11.5 - 14.5 %) 23.0 H Plt Count (130 - 400 /CUMM) 337 MPV (7.4 - 10.4 FL) 10.3 Gran % (42.2 - 75.2 %) 51.5 Lymphocytes % (20.5 - 51.1 %) 31.0 Monocytes % (1.7 - 9.3 %) 10.8 H Eosinophils % (0 - 5 %) 5.6 H Basophils % (0.0 - 2.0 %) 1.1 Absolute Granulocytes (1.4 - 6.5 /CUMM) 3.0 Absolute Lymphocytes (1.2 - 3.4 /CUMM) 1.8 Absolute Monocytes (0.10 - 0.60 /CUMM) 0.6 Absolute Eosinophils (0.0 - 0.7 /CUMM) 0.3 Absolute Basophils (0.0 - 0.2 /CUMM) 0.1 11/05 11/05 11/05 1655 1415 1047 Chemistry Sodium (137 - 145 mmol/L) 138 136 L Potassium (3.5 - 5.1 mmol/L) 6.8 *H 6.7 *H Plasma Potassium (3.4 - 4.4 MMOL/L) 5.5 H Chloride (98 - 107 mmol/L) 108 H 102 Carbon Dioxide (22 - 30 mmol/L) 19 L 22 Anion Gap (5 - 16) 10 12 BUN (7 - 17 mg/dL) 25 H 24 H Creatinine (0.5 - 1.0 mg/dL) 1.1 H 1.3 H Estimated GFR (>60 ml/min) 48 L 39 L BUN/Creatinine Ratio (7 - 25 %) 22.7 18.5 Glucose (65 - 99 mg/dL) 260 H Calcium (8.4 - 10.2 mg/dL) 8.7 Phosphorus (2.5 - 4.5 mg/dL) 4.5 Magnesium (1.6 - 2.3 mg/dL) 2.5 H Creatine Kinase (30 - 135 U/L) 38 Hematology CBC w Diff MAN DIFF ORDERED WBC (4.8 - 10.8 /CUMM) 5.9 RBC (4.20 - 5.40 /CUMM) 4.01 L Hgb (12.0 - 16.0 G/DL) 10.6 L Hct (37 - 47 %) 33.4 L MCV (81.0 - 99.0 FL) 83.4 MCH (27.0 - 31.0 PG) 26.5 L MCHC (33.0 - 37.0 G/DL) 31.8 L RDW (11.5 - 14.5 %) 22.3 H Plt Count (130 - 400 /CUMM) 409 H MPV (7.4 - 10.4 FL) 9.3 Segmented Neutrophils (42.2 - 75.2 %) 65 Lymphocytes (20.5 - 51.1 %) 25 Monocytes (1.7 - 9.3 %) 5 Eosinophils (0 - 5.0 %) 2 Basophils (0.0 - 2.0 %) 3 H Platelet Estimate (ADEQUATE) ADEQUATE Hypochromic-Microcytic 2+ Poikilocytosis 2+ Anisocytosis 1+ 11/05 1029 Chemistry Creatine Kinase Cancelled Imaging/Other Studies: None new
[2017-11-06 15:17] VITALS: BP 110/60
[2017-11-06 22:44] VITALS: BP 120/66
[2017-11-07 07:35] VITALS: BP 104/70
--- NOTE | 2017-11-07 08:32 | PN- Housestaff ---
Donovan KING,Zulema 11/07/17 0831: Subjective Follow-up For: Hyperkalemia Tele-Events Since Last Visit: Normal sinus rhythm Subjective: Patient seen and examined at bedside no overnight events. She denies chest pain , palpitation, abdominal pain. She is eager to go home today. Review of Systems Constitutional: Reports: no symptoms. Objective Last 24 Hrs of Vital Signs/I&O Vital Signs Date Time Temp Pulse Resp B/P B/P Pulse O2 O2 Flow FiO2 Mean Ox Delivery Rate 11/07 0735 98.3 62 18 104/70 98 Room Air 11/06 2244 98.6 76 18 120/66 97 Room Air 11/06 1517 98.3 74 18 110/60 95 Intake & Output 11/07 1600 11/07 0800 11/07 0000 Intake Total 620 Output Total Balance 620 Intake, IV 400 Intake, Oral 220 Number 1 Bowel Movements Patient 114 lb Weight Weight Bed scale Measurement Method Physical Exam General Appearance: Alert, Oriented X3, Cooperative, No Acute Distress Cardiovascular: Regular Rate, Normal S1, Normal S2, No Murmurs Lungs: Normal Air Movement Abdomen: Soft, No Tenderness, No Hepatospenomegaly Neurological: Normal Speech, Normal Tone Current Medications: Current Medications Sig/Tevin Start time Last Medication Dose Route Stop Time Status Admin Acetaminophen 500 MG Q6P PRN 11/05 1500 AC PO Acetaminophen 1,000 MG Q6P PRN 11/05 1500 AC N/A 1 UNIT IV Escitalopram Oxalate 5 MG DAILY 11/06 0900 AC 11/07 PO 0848 Ferrous Sulfate 325 MG TID 11/05 2100 AC 11/07 PO 0848 Insulin Aspart 0 TIDAC 11/05 1700 AC 11/07 SC 1252 Insulin Detemir 24 UNITS QAM 11/06 0900 AC 11/07 SC 0848 Melatonin 5 MG AT BEDTIME 11/05 2230 AC 11/06 PO 2052 Omeprazole 40 MG DAILY AC 11/05 1457 AC 11/07 PO 0718 Sodium Bicarbonate 650 MG TID 11/05 1707 AC 11/07 PO 0849 Sodium Chloride 1,000 ML ONCE ONE 11/06 2000 AC 11/06 IV 11/07 1559 2052 Last 24 Hrs of Lab/Emmanuel Results Last 24 Hrs of Labs/Mics: Laboratory Tests 11/07/17 0615: Plasma Potassium 4.5 H, Anion Gap 10, Estimated GFR 48 L, BUN/Creatinine Ratio 20.0 11/06/17 2143: Sodium Cancelled, Potassium Cancelled, Chloride Cancelled, Carbon Dioxide Cancelled, Anion Gap Cancelled, BUN Cancelled, Creatinine Cancelled, BUN/ Creatinine Ratio Cancelled 11/06/17 1615: Anion Gap 10, Estimated GFR 39 L, BUN/Creatinine Ratio 16.9 Assessment/Plan Assessment: Patient is an 82-year-old female with past medical history of diabetes mellitus on insulin, presenting to the emergency department on referral from her primary care provider after lab test results showed hyperkalemia. Problems: 1. Hyperkalemia 2. IDDM 3. EKG changes Assessment and plan * Patient potassium is stable 4.5 today. * Patient has no symptoms. * Patient can go home today with strict avoidance of food having high potassium like potato, banana, tomatoes. Patient is educated and she was given pamphlets for the same. * She will continue sodium bicarb 650 3 times daily. * She was seen by nephrology was suggested to start her onVeltassa 8.4g daily ( can be uptitrated PRN) * Patient will repeat CBCs and BP and plasma potassium on Wednesday. Problem List: 1. Hyperkalemia Pain Ratin Pain Location: NONE Pain Goal: Remain pain free Pain Plan: tylenol Tomorrow's Labs & Rationales: NONE Nehemiah Miller 11/07/17 1631: Attending MD Review Statement Attending Statement Attending MD Statement: examined this patient, discuss w/resident/PA/HEAVY THREADER, agreed w/resident/PA/HEAVY THREADER, reviewed EMR data (avail), discussed with case mgmt Attending Assessment/Plan: Hyperkalemia- resolved. ? type 4 RTA. nephro following. pt will be dced on bicarbonate supplements and Veltassa 8.4g daily. pt was instructed about low potassium diet and avoiding high potassium foods. please see dc summary for more details.
[2017-11-07] MEDS ORDERED: VELTASSA8.4 GM PO ×3 (10:21→12:02)
--- NOTE | 2017-11-09 10:42 | Discharge Summary ---
Visit Information Visit Dates Admission Date: 11/05/17 Discharge Date: 11/07/17 Hospital Course Course Attending Physician: Josse Alba MD [facility]: 82-year-[facility] woman with a history of diabetes, celiac disease, right-sided hydroureteronephrosis, iron deficiency anemia with reactive thrombocytosis, recurrent urinary tract infections h/o sepsis of urologic origin secondary to E. coli and MRSA, recently admitted to [facility] from 10/11/17-10/17/17 for UTI and treated with IV ceftriaxone and discharged on ciprofloxin which she completed. Patient again was admitted on 25 October for hyperkalemia. This time patient was referred by her primary care physician with the high potassium level yesterday. But patient decided to stay home overnight and she brought herself to the ER today morning. Patient denies any new medications, chest pain, palpitations, abdominal pain, nausea, vomiting, diarrhea, constipation. She denies change in that diet/medication after she got discharged from here. Patient did follow with the director of communications as suggested last admission. Otherwise patient has been eating and drinking well. At baseline patient uses walker/wheelchair at home. She has 24 hour aide at home. Hospital course: Patient was admitted for hyperkalemia. EKG showing tall T-wave in V3 V4 V5 V6. Patient did not have any symptoms. Patient was treated in the ED with calcium gluconate, insulin, glucose. Patient initial potassium was 6.7. Patient potassium came back as 5.6. Patient was once given Kayexalate 120 mL. Plasma potassium was 5.5-->4.5. Patient was restarted on sodium bicarb 650 3 times daily and advised to continue for 2 weeks. Patient was given referral to nephrology. Given her repeated hyperkalemia, patient seen by nephrology who started her on veltassa 8.4 daily. Allergies: Coded Allergies: No Known Allergies (10/25/17) Disposition Summary Disposition Principal Diagnosis: Hyperkalemia secondary due to type IV RTA Additional Diagnosis: none Discharge Disposition: home or self care Discharge Instructions General Discharge Information Code Status: Full Code Patient's Diet: Potassium restricted regular diet Patient's Activity: As tolerated Follow-Up Instructions/Appts: Follow-up with primary care physician/director of communications within 1-2 weeks of discharge Medications at Discharge Discharge Medications: Continue taking these medications: Escitalopram Oxalate (Escitalopram Oxalate) 5 MG TABLET 1 Tablet ORAL DAILY Qty = 30 Comments: Last Taken:11/07 Time:9AM Bisacodyl (Bisacodyl) 5 MG TABLET. 5 Milligram ORAL DAILY as needed for CONSTIPATION Qty = 30 Instructions: . Comments: NOT GIVEN IN HOSPITAL Omeprazole (Omeprazole) 20 MG CAPSULE. 40 Milligram ORAL DAILY BEFORE BREAKFAST Qty = 30 Instructions: . Comments: Last Taken:11/07 Time:7AM Nystatin (Nystatin) 100,000 UNIT/GRAM CREAM..G. 1 Application On the skin TWICE DAILY Qty = 60 Instructions: . Comments: NOT IN HOSPITAL Ferrous Sulfate (Ferrous Sulfate) 325 MG (65 MG IRON) TABLET. 325 Milligram ORAL THREE TIMES DAILY Qty = 30 Instructions: . Comments: Last Taken:11/07 Time:9AM Sodium Bicarbonate (Sodium Bicarbonate) 325 MG TABLET 650 Milligram ORAL THREE TIMES DAILY Qty = 42 Instructions: take two tabs in morning and one in evening. OR you can take one tab in morning, one in afternoon, one at night Comments: Last Taken:11/07 Time:9AM Insulin Aspart (Novolog) 100 UNIT/ML VIAL 1 SC 3 TIMES DAILY BEFORE MEALS Qty = 1 Comments: Last Taken:11/07 12NOON Time:80-120-2 UNITS 121-150-7 UNITS 151-200-8 UNITS 201-250-9 UNITS 251-300-10 UMITS 301-350-11 UNITS GREATER THAN 400 - 13 UNITS Insulin Glargine,Hum.rec.anlog (Toujeo Solostar) 300 UNIT/ML (1.5 ML) INSULN.PEN 24 SC DAILY Qty = 1 Comments: Last Taken:11/07 LEVIMIR Time:0900 Start taking the following new medications: Patiromer Calcium Sorbitex (Veltassa) 8.4 GRAM POWD.PACK 1 Powder ORAL DAILY Qty = 30 No Refills Instructions: . Copies To: Lisa Poe DO; Alice KING,Wm
== END 2017-11-07 15:00 | disposition home health service (06) ==
LOC: ERH 10:20 → 1NO 13:15 → ERHI 13:15 → ENRESERV 13:56 → ENTRNSPT 15:50 → 1NO 16:03 → CMPTRNSPT 16:16 → 1NO 19:31 → ENPENDDIS 11-07 12:10 → ENTRNSPT 11-07 14:55 → 1NO 11-07 15:00 → CMPTRNSPT 11-07 15:11
PROVIDERS: Physician Assistant; Student in an Organized Health Care Education/Training Program
DX: E87.5 Hyperkalemia (principal); Z79.4 Long term (current) use of insulin; E11.22 Type 2 diabetes mellitus with diabetic chronic kidney disease; N18.9 Chronic kidney disease, unspecified; F17.200 Nicotine dependence, unspecified, uncomplicated; Z87.442 Personal history of urinary calculi; D69.3 Immune thrombocytopenic purpura
CPT/HCPCS: 6020; 36592; 82436; 93005; 93010; 96365; 96375; 99291; G0378; J0131; J0610; J1644; J7040